=== PATIENT | female | born 1940 | race Caucasian/White ===

== ENCOUNTER 2018-01-25 08:35 | Inpatient (IN) | payer OTHER ==
--- NOTE | 2018-01-25 08:51 | PDOC ---
History of Present Illness - General Stated Complaint: UTI Time Seen by Provider: 01/25/18 08:50 - History of Present Illness Initial Comments: 01/25/18 09:36 The patient is a 77 year old female with a history of HTN, HLD, DM, CAD, COPD, frequent UTIs, PVD s/p aka to the left lower extremity who presents for evaluation of lower abdominal pain. The patient is accompanied by family who assist in providing the history. They note worsening lower abdominal pain and flank pain over the past 2 days similar to prior UTIs. The patient notes that she has been unable to get comfortable and her prior UTI symptoms have never been this severe before. They note subjective fevers at home and otherwise deny SOB, chest pain, nausea, vomiting, or changes with bowel movements. Past History - Past Medical History Allergies/Adverse Reactions: Allergies Allergy/AdvReac Type Severity Reaction Status Date / Time No Known Allergies Allergy Verified 01/25/18 08:48 Home Medications: Ambulatory Orders Aspirin 81 mg PO DAILY 01/25/18 Atorvastatin Calcium [Lipitor] 20 mg PO HS 01/25/18 Bethanechol Chloride [Urecholine] 50 mg PO BID 01/25/18 Budesonide/Formeterol Fumarate [SYMBICORT 160/4.5mcg -] 1 inh PO DAILY 01/25/18 Carbidopa/Levodopa [Carbidopa-Levodopa 25-100 Tab] 1 each PO BID 01/25/18 Carvedilol [Coreg -] 25 mg PO BID 01/25/18 Cholecalciferol (Vitamin D3) [Vitamin D3 -] 1,000 unit PO DAILY 01/25/18 Esomeprazole Magnesium [Nexium 24Hr] 40 mg PO DAILY 01/25/18 Furosemide [Lasix -] 80 mg PO DAILY 01/25/18 Insulin Glargine,Hum.rec.anlog [Lantus Solostar PEN (NF)] 0 units SQ HS Isosorbide Mononitrate [Imdur -] 30 mg PO DAILY 01/25/18 Losartan Potassium [Cozaar -] 50 mg PO DAILY 01/25/18 Meclizine HCl [Antivert -] 12.5 mg PO QID PRN 01/25/18 Methenamine Hippurate [Hiprex [Nf] -] 1 gm PO DAILY 01/25/18 Ranolazine [Ranexa -] 500 mg PO HS 01/25/18 Sitagliptin Phos/Metformin HCl [Janumet 50-1,000 mg Tablet] 1 each PO BID Ticagrelor [Brilinta] 90 mg PO BID 01/25/18 Cardiac Disorders: Yes COPD: Yes CHF: No Diabetes: Yes HTN: Yes Hypercholesterolemia: Yes - Surgical History Abdominal Surgery: Yes - Suicide/Smoking/Psychosocial Hx Smoking Status: No Smoking History: Never smoked Have you smoked in the past 12 months: No Number of Cigarettes Smoked Daily: 0 Information on smoking cessation initiated: No Hx Alcohol Use: No Drug/Substance Use Hx: No Substance Use Type: None Review of Systems - Review of Systems Comments:: 01/25/18 09:41 Constitutional: No fevers, chills, fatigue, malaise HEENT: No Rhinorrhea, nasal congestion, visual changes Cardiovascular: No chest pain, syncope, palpitations, lightheadedness Respiratory: No Cough, SOB, Hemoptysis, Gastrointestinal: Lower abdominal pain. No Nausea, Vomiting, Constipation, Diarrhea, Melena Genitourinary: Bilateral Flank pain. No Dysuria, Frequency, Urgency, Hesitancy , Hematuria, Musculoskeletal: No Myalgia, arthralgia Skin: No rashes, itching, bruising, pallor Neurologic: No Headache, Dizziness, Numbness, Weakness, or Tingling Psychiatric: No Hallucinations. No SI or HI *Physical Exam - Vital Signs Last Vital Signs Temp Pulse Resp BP Pulse Ox 98.3 F 80 16 172/79 H 100 01/25/18 08:35 01/25/18 08:35 01/25/18 08:35 01/25/18 08:35 01/25/18 08:35 - Physical Exam Comments: 01/25/18 09:41 General Appearance: Nourished. No Apparent Distress HEENT: No Pharyngeal Erythema, Tonsillar Exudate, Tonsillar Erythema Neck: No Cervical Lymphadenopathy Respiratory/Chest: Lungs Clear, Normal Breath Sounds. No Crackles, Rales, Rhonchi, Wheezing Cardiovascular: Regular Rhythm, Regular Rate. No Murmur, Gallops, Rubs Gastrointestinal/Abdominal: Normal Bowel Sounds, Soft. Suprapubic tenderness to palpation on exam. 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 Normal Capillary Refill Integumentary: Normal Color, Dry, Warm Neurologic: Fully Oriented, Alert, Normal Mood/Affect, Normal Response, Moderate Sedation - Procedure Monitoring Vital Signs: Procedure Monitoring Vital Signs Temperature 98.3 F 01/25/18 08:35 Pulse Rate 80 01/25/18 08:35 Respiratory Rate 16 01/25/18 08:35 Blood Pressure 172/79 H 01/25/18 08:35 O2 Sat by Pulse Oximetry (%) 100 01/25/18 08:35 ED Treatment Course - LABORATORY CBC & Chemistry Diagram: 01/25/18 09:00 01/25/18 09:00 Medical Decision Making - Medical Decision Making 01/25/18 09:43 The patient is a 77 year old female with a history of HTN, HLD, DM, CAD, COPD, frequent UTIs, PVD s/p aka to the left lower extremity who presents for evaluation of lower abdominal pain. Differential includes but is not limited to : UTI, Sepsis, Kidney stone, Infectious, Metabolic Derangement. Given the patient's history and physical exam, we will obtain a cbc, cmp, troponin, coags , blood cultures, ua, urine cultures, chest plain film, ekg, to evaluate further. We will treat with tylenol and iv fluids and continue to monitor and reassess while here in the ED. 01/25/18 10:56 CBC, cmp, troponin, ua are unremarkable. Chest plain film is unremarkable. Given the patient's symptoms we will obtain a CT abdomen/pelvis with contrast to evaluate further. The patient's GFR is 35, however we require iv contrast to obtain an adequate study to evaluate the patient. We have pretreated the patient with iv fluids in advance of her CT. 01/25/18 14:18 CT abdomen/pelvis demonstrated an occlusion of the left femoral graft but no other acute findings as read by our radiologist. We discussed the findings with Dr. Gasca with Vascular Surgery who does not believe the finding to be clinically significant especially given the patient's AKA in that limb. Plain films of the patient's spine demonstrate arthritic changes as well. The patient continues to complain of severe pain and given that she is unable to transfer herself due to the pain and her aka, we believe she requires admission for pain management and PT evaluation. *DC/Admit/Observation/Transfer Diagnosis at time of Disposition: Intractable back pain Back pain Qualifiers: Back pain location: back pain in unspecified location Chronicity: unspecified Back pain laterality: unspecified Qualified Code(s): M54.9 - Dorsalgia, unspecified - Discharge Dispostion Condition at time of disposition: Stable Decision to Admit order: Yes - Referrals Referrals: Tonio Meyer MD [Primary Care Provider] - - Patient Instructions - Post Discharge Activity
[2018-01-25] MEDS ORDERED: ACETAMINOPHEN INJECTION 100 ML IVPB ONE (09:07)
[2018-01-25] MEDS ORDERED: ACETAMINOPHEN 1000 MG/100 ML VIAL (NON FORMULARY) IVPB ONE (09:10)
[2018-01-25] MEDS ORDERED: SODIUM CHLORIDE 0.9% 500 ML INFUS.BAG IV ONE (09:10)
[2018-01-25 09:19] LABS: BASO % 0.7 % (0-2.0); EOS % 4.3 % (0-4.5); HEMATOCRIT 34.1 % (32.4-45.2); HEMOGLOBIN 11.5 GM/dL (10.7-15.3); LYMPH % 25.3 % (8-40); MCH 28.6 pg (25.7-33.7); MCHC 33.8 g/dl (32.0-36.0); MEAN CELL VOLUME 84.4 fl (80-96); MEAN PLT VOLUME 9.2 fl (7.5-11.1); MONO % 11.9 % (3.8-10.2); NEUT % 57.8 % (42.8-82.8); PLATELET COUNT 235 K/MM3 (134-434); RBC 4.04 M/mm3 (3.60-5.2); RDW 16.8 % (11.6-15.6)
[2018-01-25 09:35] LABS: URINE APPEARANCE CLEAR; URINE BILIRUBIN NEGATIVE (<2.0 mg/dL); URINE COLOR LTYELLOW; URINE GLUCOSE (UA) NEGATIVE (NEGATIVE); URINE KETONE NEGATIVE (NEGATIVE); URINE LEUK ESTERASE NEGATIVE (NEGATIVE); URINE NITRITE NEGATIVE (NEGATIVE); URINE PROTEIN NEGATIVE (NEGATIVE); URINE UROBILINOGEN NEGATIVE mg/dL (0.2-1.0)
[2018-01-25 09:39] LABS: EPI CELLS RARE /HPF (FEW); URINE HYALINE CAST 7 /lpf
[2018-01-25 09:42] LABS: INR 1.13 (0.83-1.09); PROTHROMBIN TIME (PATIENT) 13.3 SEC (9.7-13.0)
[2018-01-25 09:44] LABS: ACTIVATED PTT 28.5 SECONDS (25.2-36.5)
[2018-01-25 09:54] LABS: ALBUMIN 3.4 g/dl (3.4-5.0); ALK PHOS 144 U/L (45-117); ANION GAP 12 MMOL/L (8-16); BILIRUBIN,TOTAL 0.4 mg/dL (0.2-1); BLOOD UREA NITROGEN 32 mg/dL (7-18); CALCIUM 8.8 mg/dL (8.5-10.1); CHLORIDE 101 mmol/L (98-107); CO2 26 mmol/L (21-32); CREATININE 1.3 mg/dL (0.55-1.3); GLUCOSE,RANDOM 156 mg/dL (74-106); SGOT/AST 17 U/L (15-37); SGPT/ALT 17 U/L (13-61); SODIUM 139 mmol/L (136-145); TOT PROT 7.1 g/dl (6.4-8.2)
--- NOTE | 2018-01-25 11:02 | PDOC ---
Attending Attestation - Resident Resident Name: Johnny Yanes - ED Attending Attestation I have performed the following: I have examined & evaluated the patient, The case was reviewed & discussed with the resident, I agree w/resident's findings & plan, Exceptions are as noted - HPI HPI: 01/25/18 10:56 77 yo f with ho HTN, HLD, DM, CAD, COPD, left AKA here wtih c/o bilat flank pain and lower abd pain. pt denies dysruia or frequency. no mod factors. no hematuria. has had very frequent uti , followed by dr. verma (urologist) . no f/c no n/v only chills. has had prior surgery many years ago which complicated by intraperitoneal infection left to heal secondarily. no change to stool no cough no cp no sob. - Physicial Exam PE: 01/25/18 11:02 awake alert lungs clear bilaterally heart rrr no mrg abd soft mild llq ttp. no rebound no guarding. ext wwp. left aka stump no wound wwp. skin warm and dry. no cva tenderness. - Medical Decision Making 01/25/18 11:03 differential renal colic, uti, other intrabdominal process such as obstruction, diverticulitis, colitis. plan focused ED ultrasound bedisde.ua labs pain medication. focused ED ultrasound renal indication flank pain. no hydronephrosis noted. bladder nondistended. impression normal renal ultrasound ua negative for uti, will ct a/p with contrast eval for diveritculitis. 01/25/18 14:09 ct negative for any intrabdominal findings. It does show cholelithiasis. The left femoral stent appears to be occluded discussed these findings Dr. Gasca the patient's vascular surgeon who feels that there is insignificant patient has an AKA on the left side. Patient feels slightly improved with Tylenol however did have some recurrent pain will be given 15 mg of Toradol states her pain is worse with movement most likely likely due to degenerative changes in her spine x-rays the LS-spine show no loss of vertebral body height only degenerative changes. Patient will be discharged home to follow up with Dr. mahoney and Dr. Gasca recommend Tylenol as needed for her pain urine is negative for any infection Heart Score/ECG Review #1 General ECG Interpretation: Sinus Rhythm (78 TWI V4 - V6), Normal Rate, Normal Intervals, No acute ischemic changes
[2018-01-25] MEDS ORDERED: morphine CARPU-JECT 2 MG/1 ML DISP.SYRIN IVPUSH ONE ×2 (12:14→14:56)
[2018-01-25] MEDS ORDERED: MORPHINE SULFATE 2 MG/ML VIAL ONE ×2 (12:15→14:59)
[2018-01-25] MEDS ORDERED: LIDOCAINE 5% TOPICAL PATCH TP ONE (13:50)
[2018-01-25] MEDS ORDERED: LIDOCAINE 5% TOPICAL PATCH ONE (13:53)
[2018-01-25] MEDS ORDERED: KETOROLAC TROMETHAMINE 15 MG/ML VIAL IVPUSH ONE (14:09)
[2018-01-25] MEDS ORDERED: KETOROLAC TROMETHAMINE 15 MG/ML VIAL ONE (14:29)
[2018-01-25] MEDS ORDERED: oxyCODONE HCL 5 MG TABLET PO PRN (16:36)
[2018-01-25] MEDS ORDERED: ACETAMINOPHEN 325 MG TABLET (FP) PO PRN (16:37)
[2018-01-25 17:03] VITALS: BMI 27.7
--- NOTE | 2018-01-25 17:03 | HP ---
Admitting History and Physical - Primary Care Physician PCP: Tonio Meyer - Admission Chief Complaint: I'm having back pain History of Present Illness: Ms Downing is a pleasant 77 year old female who comes in with back pain. Patient is English speaking and has slight dementia so history comes mainly from her daughter translating and filling in details the patient cannot. Ms Mcgee has a history of recurrent UTI's and often has back pain associated with this, the last episode happening 4 months ago. 3 days ago she developed back pain. It is located in her lower back on both sides. At times it radiates around to her abdomen. She says it is constant but also says it comes and goes, and when it comes on she tightens up. The patient says at its worst it is greater than a 10. The daughter says the patient normally is able to transfer from bed to the commode but because of the pain she has been unable to do this. She does not know of anything that makes the pain better and it is worse with movement. She denies fevers, chills, lightheadedness, dizziness, chest pain, shortness of breath, nausea, vomiting, diarrhea, constipation, difficulty or pain on urination, or swelling. History Source: Patient Limitations to Obtaining History: No Limitations - Past Medical History [employer]: Yes: Dementia Cardiovascular: Yes: CHF, HTN Pulmonary: Yes: COPD, Pulmonary Fibrosis Endocrine: Yes: Diabetes Mellitus - Past Surgical History Past Surgical History: Yes: Amputation (L BKA) Additional Past Surgical History: Partial gastrectomy - Smoking History Smoking history: Never smoked Have you smoked in the past 12 months: No Aproximately how many cigarettes per day: 0 - Alcohol/Substance Use Hx Alcohol Use: No History of Substance Use: reports: None - Social History Usual Living Arrangement: Yes: With Child ADL: Family Assistance History of Recent Travel: No Home Medications - Allergies Allergies/Adverse Reactions: Allergies Allergy/AdvReac Type Severity Reaction Status Date / Time No Known Allergies Allergy Verified 01/25/18 08:48 - Home Medications Home Medications: Ambulatory Orders Aspirin 81 mg PO DAILY 01/25/18 Atorvastatin Calcium [Lipitor] 20 mg PO HS 01/25/18 Bethanechol Chloride [Urecholine] 50 mg PO BID 01/25/18 Budesonide/Formeterol Fumarate [SYMBICORT 160/4.5mcg -] 1 inh PO DAILY 01/25/18 Carbidopa/Levodopa [Carbidopa-Levodopa 25-100 Tab] 1 each PO BID 01/25/18 Carvedilol [Coreg -] 25 mg PO BID 01/25/18 Cholecalciferol (Vitamin D3) [Vitamin D3 -] 1,000 unit PO DAILY 01/25/18 Esomeprazole Magnesium [Nexium 24Hr] 40 mg PO DAILY 01/25/18 Furosemide [Lasix -] 80 mg PO DAILY 01/25/18 Insulin Glargine,Hum.rec.anlog [Lantus Solostar PEN (NF)] 0 units SQ HS Isosorbide Mononitrate [Imdur -] 30 mg PO DAILY 01/25/18 Losartan Potassium [Cozaar -] 50 mg PO DAILY 01/25/18 Meclizine HCl [Antivert -] 12.5 mg PO QID PRN 01/25/18 Methenamine Hippurate [Hiprex [Nf] -] 1 gm PO DAILY 01/25/18 Ranolazine [Ranexa -] 500 mg PO HS 01/25/18 Sitagliptin Phos/Metformin HCl [Janumet 50-1,000 mg Tablet] 1 each PO BID Ticagrelor [Brilinta] 90 mg PO BID 01/25/18 Family Disease History - Family Disease History Family Disease History: Diabetes: Mother, Heart Disease: Father Review of Systems Findings/Remarks: Full review of systems obtained, as per HPI and otherwise negative Physical Examination Vital Signs: Vital Signs Temperature 37.1 C 01/25/18 11:54 Pulse Rate 69 01/25/18 16:21 Respiratory Rate 18 01/25/18 16:21 Blood Pressure 131/62 01/25/18 16:21 O2 Sat by Pulse Oximetry (%) 97 01/25/18 16:21 Constitutional: Yes: Well Nourished, No Distress, Calm Eyes: Yes: Conjunctiva Clear, EOM Intact, PERRL HENT: Yes: Atraumatic, Normocephalic Cardiovascular: Yes: Regular Rate and Rhythm. No: Gallop, Murmur, Rub Respiratory: Yes: Regular, CTA Bilaterally. No: Rales, Rhonchi, Wheezes Gastrointestinal: Yes: Normal Bowel Sounds, Soft. No: Distention, Tenderness Extremities: Yes: WNL Edema: No Labs: CBC, BMP 01/25/18 09:00 01/25/18 09:00 Imaging - Results Chest X-ray: Report Reviewed, Image Reviewed X-ray: Report Reviewed Cat Scan: Report Reviewed Problem List - Problems (1) Back pain Assessment/Plan: -patient presents with acute back pain -worsened with movement and this was witnessed on exam -appeared spasmodic in nature -will trial flexeril -prn oxycodone 2.5mg -PT consult Code(s): M54.9 - DORSALGIA, UNSPECIFIED Qualifiers: Back pain location: low back pain Chronicity: acute Back pain laterality : bilateral Sciatica presence: without sciatica Qualified Code(s): M54.5 - Low back pain (2) CHF (congestive heart failure) Assessment/Plan: -not in exacerbation -last ECHO in system 2013 -appears diastolic at that time -continue lasix -continue blood pressure control Code(s): I50.9 - HEART FAILURE, UNSPECIFIED Qualifiers: Heart failure type: diastolic Heart failure chronicity: chronic Qualified Code(s): I50.32 - Chronic diastolic (congestive) heart failure (3) HTN (hypertension) Assessment/Plan: -elevated -suspect secondary to pain -pain control as above -continue home regimen Code(s): I10 - ESSENTIAL (PRIMARY) HYPERTENSION (4) Diabetes Assessment/Plan: -diabetic diet -continue janumet, renally dosed -FSBS and SSI Code(s): E11.9 - TYPE 2 DIABETES MELLITUS WITHOUT COMPLICATIONS (5) COPD (chronic obstructive pulmonary disease) Assessment/Plan: -not in exacerbation -continue symbicort Code(s): J44.9 - CHRONIC OBSTRUCTIVE PULMONARY DISEASE, UNSPECIFIED (6) PAD (peripheral artery disease) Assessment/Plan: -femoral artery occlusion noted on CT scan -ER team discussed with Dr Gasca, not cause of pain -no emergent intervention needed for this finding -continue brilinta Code(s): I73.9 - PERIPHERAL VASCULAR DISEASE, UNSPECIFIED (7) Dementia Assessment/Plan: -continue sinemet Code(s): F03.90 - UNSPECIFIED DEMENTIA WITHOUT BEHAVIORAL DISTURBANCE (8) CAD (coronary artery disease) Assessment/Plan: -quiescent -continue coreg, lipitor, ranexa, imdur, aspirin, and losartan Code(s): I25.10 - ATHSCL HEART DISEASE OF [place] CORONARY ARTERY W/O ANG PCTRS
[2018-01-25] MEDS ORDERED: FLU VACCINE QUAD 60 MCG/0.5 ML (MDV 18-19) IM ONE (17:08)
[2018-01-25] MEDS: INSULIN SLIDING SCALE (NOVOLOG) 1 VIAL SQ SCH ×2 (18:01→22:14)
[2018-01-25] MEDS ORDERED: PATIENT'S OWN MEDICATION (NON-FORMULARY) (Sitagliptin Phos/Metformin Hcl [Janumet 50-1,000 PO SCH (22:00)
[2018-01-25] MEDS ORDERED: PT OWN MED DRAWER 7, Y5N ONE (22:06)
[2018-01-25] MEDS: CARVEDILOL 25 MG TABLET (FP) PO SCH (22:10)
[2018-01-25] MEDS: BETHANECHOL CHLORIDE 25 MG TABLET PO SCH (22:10)
[2018-01-25] MEDS: CARBIDOPA/LEVODOPA 25/100 TABLET (FP) PO SCH (22:11)
[2018-01-25] MEDS: RANOLAZINE E.R. 500 MG TABLET (FP) PO SCH (22:11)
[2018-01-25] MEDS: ATORVASTATIN CA 20 MG TABLET (FP) PO SCH (22:11)
[2018-01-25] MEDS: TICAGRELOR 90 MG TABLET PO SCH (22:12)
[2018-01-26] MEDS: CYCLOBENZAPRINE HCL 5 MG TABLET PO SCH ×4 (00:03→21:43)
[2018-01-26] MEDS ORDERED: PT OWN MED DRAWER 7, Y5N ONE ×6 (00:16→22:49)
[2018-01-26] MEDS: sitaGLIPtin PHOSPHATE 50 MG TABLET PO SCH (06:09)
[2018-01-26] MEDS: metFORMIN HCL 500 MG TABLET (FP) PO SCH (06:09)
[2018-01-26] MEDS: INSULIN SLIDING SCALE (NOVOLOG) 1 VIAL SQ SCH ×4 (06:09→21:52)
[2018-01-26 07:02] LABS: BASO % 0.3 % (0-2.0); EOS % 1.2 % (0-4.5); HEMATOCRIT 33.8 % (32.4-45.2); HEMOGLOBIN 10.8 GM/dL (10.7-15.3); LYMPH % 10.1 % (8-40); MCH 27.5 pg (25.7-33.7); MEAN CELL VOLUME 85.8 fl (80-96); MEAN PLT VOLUME 8.8 fl (7.5-11.1); MONO % 8.7 % (3.8-10.2); NEUT % 79.7 % (42.8-82.8); PLATELET COUNT 198 K/MM3 (134-434); RBC 3.94 M/mm3 (3.60-5.2); RDW 16.9 % (11.6-15.6); WHITE BLOOD COUNT 7.3 K/mm3 (4.0-10.0)
[2018-01-26 07:34] LABS: ANION GAP 12 MMOL/L (8-16); BLOOD UREA NITROGEN 28 mg/dL (7-18); CALCIUM 8.9 mg/dL (8.5-10.1); CHLORIDE 105 mmol/L (98-107); CO2 25 mmol/L (21-32); CREATININE 1.2 mg/dL (0.55-1.3); GLUCOSE,RANDOM 138 mg/dL (74-106); MAGNESIUM 2.3 mg/dL (1.8-2.4); PHOSPHOROUS 4.1 mg/dL (2.5-4.9); POTASSIUM 3.9 mmol/L (3.5-5.1); SODIUM 141 mmol/L (136-145)
[2018-01-26] MEDS ORDERED: PATIENT'S OWN MEDICATION (NON-FORMULARY) (Sitagliptin Phos/Metformin Hcl [Janumet 50-1,000 PO SCH (10:00)
[2018-01-26] MEDS ORDERED: ENOXAPARIN NA (PORCINE) 40 MG/0.4 ML DISP.SYRIN SQ SCH (10:00)
[2018-01-26] MEDS: ASPIRIN 81 MG CHEWABLE TABLETS PO SCH (10:40)
[2018-01-26] MEDS: TICAGRELOR 90 MG TABLET PO SCH ×2 (10:41→21:44)
[2018-01-26] MEDS: CARVEDILOL 25 MG TABLET (FP) PO SCH ×2 (10:41→21:46)
[2018-01-26] MEDS: ISOSORBIDE MONONITRATE 30 MG TAB.SR.24H (FP) PO SCH (10:42)
[2018-01-26] MEDS: LOSARTAN POTASSIUM 50 MG TABLET (FP) PO SCH (10:42)
[2018-01-26] MEDS: FUROSEMIDE 40 MG TABLET (FP) PO SCH (10:42)
[2018-01-26] MEDS: BETHANECHOL CHLORIDE 25 MG TABLET PO SCH ×2 (10:43→21:46)
[2018-01-26] MEDS: CHOLECALCIFEROL (VITAMIN D3) 1,000 UNIT TABLET (FP) PO SCH (10:43)
[2018-01-26] MEDS: CARBIDOPA/LEVODOPA 25/100 TABLET (FP) PO SCH ×2 (10:43→21:46)
[2018-01-26] MEDS: PANTOPRAZOLE 40 MG TABLET (FP) PO SCH (10:43)
[2018-01-26] MEDS: BUDESONIDE/FORMETEROL FUMARATE 160/4.5 mcg INHALER IH SCH (10:44)
--- NOTE | 2018-01-26 11:19 | EKG ---
Test Reason : Blood Pressure : / mmHG Vent. Rate : 078 BPM Atrial Rate : 078 BPM P-R Int : 170 ms QRS Dur : 100 ms QT Int : 402 ms P-R-T Axes : 041 002 172 degrees QTc Int : 458 ms NORMAL SINUS RHYTHM POSSIBLE INFERIOR INFARCT , AGE UNDETERMINED ABNORMAL ECG WHEN COMPARED WITH ECG OF 03-FEB-2013 08:42, QRS DURATION HAS INCREASED T WAVE VARIATION Confirmed by ANA ROSA ALVARES MD ([id number]) on 01/26/2018 11:19:11 AM Referred By: Confirmed By:ANA ROSA ALVARES MD
[2018-01-26] MEDS ORDERED: INSULIN (NOVOLOG) ASPART 100 UNITS/ML 10ML VIAL ONE ×2 (11:34→20:48)
--- NOTE | 2018-01-26 13:02 | PN ---
Progress Note, Physician Chief Complaint: Pt sitting in bed in no acute distress. pain improved. worse w/ movement. was straightcathed overnight, DTV, daughter at bedside, reports mom cannot urinate on a bedpan or on a bed. Reports no bm since 4 days ago. Otherwise, denies further complaints. - Current Medication List Current Medications: Active Medications Aspirin (Asa -) 81 mg PO DAILY [facility] Last Admin: 01/26/18 10:40 Dose: 81 mg Atorvastatin Calcium (Lipitor -) 20 mg PO HS [facility] Last Admin: 01/25/18 22:11 Dose: 20 mg Bethanechol Chloride (Urecholine -) 50 mg PO BID [facility] Last Admin: 01/26/18 10:43 Dose: 50 mg Budesonide/Formoterol Fumarate (Symbicort 160/4.5mcg -) 1 puff IH DAILY [facility] Last Admin: 01/26/18 10:44 Dose: 1 puff Carbidopa/Levodopa (Sinemet 25/100 -) 1 each PO BID [facility] Last Admin: 01/26/18 10:43 Dose: 1 each Carvedilol (Coreg -) 25 mg PO BID [facility] Last Admin: 01/26/18 10:41 Dose: 25 mg Cholecalciferol (Vitamin D3 -) 1,000 unit PO DAILY [facility] Last Admin: 01/26/18 10:43 Dose: 1,000 unit Cyclobenzaprine HCl (Cyclobenzaprine Hcl) 5 mg PO TID [facility] Last Admin: 01/26/18 05:56 Dose: 5 mg Furosemide (Lasix -) 80 mg PO DAILY [facility] Last Admin: 01/26/18 10:42 Dose: 80 mg Insulin Aspart (Novolog Vial Sliding Scale -) 1 vial SQ ACHS [facility]; Protocol Last Admin: 01/26/18 11:52 Dose: 2 units Isosorbide Mononitrate (Imdur -) 30 mg PO DAILY [facility] Last Admin: 01/26/18 10:42 Dose: 30 mg Losartan Potassium (Cozaar -) 50 mg PO DAILY [facility] Last Admin: 01/26/18 10:42 Dose: 50 mg Metformin HCl (Glucophage -) 1,000 mg PO 0700 [facility] Last Admin: 01/26/18 06:09 Dose: 1,000 mg Oxycodone HCl (Roxicodone -) 2.5 mg PO Q6H PRN PRN Reason: PAIN LEVEL 6-10 Pantoprazole Sodium (Protonix -) 40 mg PO DAILY [facility] Last Admin: 01/26/18 10:43 Dose: 40 mg Polyethylene Glycol (Miralax (For Daily Use) -) 17 gm PO BID [facility] Ranolazine (Ranexa -) 500 mg PO HS [facility] Last Admin: 01/25/18 22:11 Dose: 500 mg Sitagliptin Phosphate (Januvia -) 50 mg PO 0700 [facility] Last Admin: 01/26/18 06:09 Dose: 50 mg Ticagrelor (Brilinta -) 90 mg PO BID [facility] Last Admin: 01/26/18 10:41 Dose: 90 mg - Objective Vital Signs: Vital Signs Temperature 98.7 F 01/26/18 08:55 Pulse Rate 65 01/26/18 08:55 Respiratory Rate 18 01/26/18 08:55 Blood Pressure 120/46 L 01/26/18 08:55 O2 Sat by Pulse Oximetry (%) 97 01/26/18 00:32 Constitutional: Yes: Well Nourished, No Distress, Calm Cardiovascular: Yes: WNL, Regular Rate and Rhythm. No: Murmur, Rub Respiratory: Yes: WNL, Regular, CTA Bilaterally. No: Accessory Muscle Use, SOB , Tachypnea, Wheezes Gastrointestinal: Yes: WNL, Normal Bowel Sounds, Soft. No: Distention, Tenderness Genitourinary: Yes: WNL Musculoskeletal: Yes: Back Pain Edema: No Neurological: Yes: WNL, Alert, Confusion Psychiatric: Yes: Alert Labs: CBC, BMP 01/26/18 06:00 01/26/18 06:00 INR, PTT INR 1.13 (0.83-1.09) H 01/25/18 09:00 Assessment/Plan (1) Low back strain Assessment/Plan: symptoms consistent w/ muscle spasms all infectious work up neg CT abd/lumbar without acute findings continue flexeril, tylenol PT pending Code(s): S39.012A - STRAIN OF MUSCLE, FASCIA AND TENDON OF LOWER BACK, INIT Qualifiers: Encounter type: initial encounter Qualified Code(s): S39.012A - Strain of muscle, fascia and tendon of lower back, initial encounter (2) Back pain Assessment/Plan: improving still worse w/ movement monitor as above Code(s): M54.9 - DORSALGIA, UNSPECIFIED Qualifiers: Back pain location: low back pain Chronicity: acute Back pain laterality : bilateral Sciatica presence: without sciatica Qualified Code(s): M54.5 - Low back pain (3) CHF (congestive heart failure) Assessment/Plan: stable continue lasix Code(s): I50.9 - HEART FAILURE, UNSPECIFIED Qualifiers: Heart failure type: diastolic Heart failure chronicity: chronic Qualified Code(s): I50.32 - Chronic diastolic (congestive) heart failure (4) HTN (hypertension) Assessment/Plan: stable varies, suspect 2/2 pain continue home regimen Code(s): I10 - ESSENTIAL (PRIMARY) HYPERTENSION (5) Diabetes Assessment/Plan: stable continue bgm, janumet, insulin sliding scale diab diet Code(s): E11.9 - TYPE 2 DIABETES MELLITUS WITHOUT COMPLICATIONS (6) COPD (chronic obstructive pulmonary disease) Assessment/Plan: stable continue symbicort Code(s): J44.9 - CHRONIC OBSTRUCTIVE PULMONARY DISEASE, UNSPECIFIED (7) PAD (peripheral artery disease) Assessment/Plan: continue brilinta outpt vascular follow up Code(s): I73.9 - PERIPHERAL VASCULAR DISEASE, UNSPECIFIED (8) Dementia Assessment/Plan: continue sinemet Code(s): F03.90 - UNSPECIFIED DEMENTIA WITHOUT BEHAVIORAL DISTURBANCE (9) CAD (coronary artery disease) Assessment/Plan: stable continue current regimen Code(s): I25.10 - ATHSCL HEART DISEASE OF [place] CORONARY ARTERY W/O ANG PCTRS (11) Constipation Assessment/Plan: daughter reports no bm for the last 4-5 days enema ordered miralax bid monitor Code(s): K59.00 - CONSTIPATION, UNSPECIFIED Qualifiers: Constipation type: slow transit constipation Qualified Code(s): K59.01 - Slow transit constipation
[2018-01-26] MEDS: ACETAMINOPHEN 325 MG TABLET (FP) PO SCH ×2 (14:04→18:54)
[2018-01-26] MEDS: POLYETHYLENE GLYCOL 3350 119 GM BTL PO SCH ×2 (14:04→21:52)
[2018-01-26] MEDS: ATORVASTATIN CA 20 MG TABLET (FP) PO SCH (21:45)
[2018-01-26] MEDS: RANOLAZINE E.R. 500 MG TABLET (FP) PO SCH (21:56)
[2018-01-27] MEDS: ACETAMINOPHEN 325 MG TABLET (FP) PO SCH ×4 (01:53→19:00)
[2018-01-27] MEDS: INSULIN SLIDING SCALE (NOVOLOG) 1 VIAL SQ SCH ×4 (06:21→22:31)
[2018-01-27] MEDS: sitaGLIPtin PHOSPHATE 50 MG TABLET PO SCH (06:21)
[2018-01-27] MEDS: metFORMIN HCL 500 MG TABLET (FP) PO SCH (06:21)
[2018-01-27] MEDS: CYCLOBENZAPRINE HCL 5 MG TABLET PO SCH ×3 (06:21→22:31)
[2018-01-27] MEDS ORDERED: PT OWN MED DRAWER 7, Y5N ONE ×2 (10:09→13:05)
[2018-01-27] MEDS: ASPIRIN 81 MG CHEWABLE TABLETS PO SCH (10:20)
[2018-01-27] MEDS: TICAGRELOR 90 MG TABLET PO SCH ×2 (10:20→22:31)
[2018-01-27] MEDS: CARBIDOPA/LEVODOPA 25/100 TABLET (FP) PO SCH ×2 (10:21→22:30)
[2018-01-27] MEDS: CARVEDILOL 25 MG TABLET (FP) PO SCH ×2 (10:21→22:30)
[2018-01-27] MEDS: ISOSORBIDE MONONITRATE 30 MG TAB.SR.24H (FP) PO SCH (10:22)
[2018-01-27] MEDS: FUROSEMIDE 40 MG TABLET (FP) PO SCH (10:22)
[2018-01-27] MEDS: POLYETHYLENE GLYCOL 3350 119 GM BTL PO SCH ×2 (10:22→22:32)
[2018-01-27] MEDS: LOSARTAN POTASSIUM 50 MG TABLET (FP) PO SCH (10:22)
[2018-01-27] MEDS: BUDESONIDE/FORMETEROL FUMARATE 160/4.5 mcg INHALER IH SCH (10:23)
[2018-01-27] MEDS: CHOLECALCIFEROL (VITAMIN D3) 1,000 UNIT TABLET (FP) PO SCH (10:23)
[2018-01-27] MEDS: BETHANECHOL CHLORIDE 25 MG TABLET PO SCH ×2 (10:23→22:30)
[2018-01-27] MEDS: PANTOPRAZOLE 40 MG TABLET (FP) PO SCH (10:23)
[2018-01-27] MEDS ORDERED: MAGNESIUM CITRATE 300 ML BOTTLE PO ONE (10:26)
[2018-01-27 10:45] LABS: ANION GAP 12 MMOL/L (8-16); BLOOD UREA NITROGEN 39 mg/dL (7-18); CALCIUM 8.2 mg/dL (8.5-10.1); CHLORIDE 103 mmol/L (98-107); CO2 22 mmol/L (21-32); CREATININE 1.8 mg/dL (0.55-1.3); GLUCOSE,RANDOM 143 mg/dL (74-106); SODIUM 138 mmol/L (136-145)
--- NOTE | 2018-01-27 11:29 | PN ---
Progress Note, Physician Chief Complaint: Pt sitting in wheelchair in no acute distress. Back pain improved. reports has not been drinking enough water. still has not had BM. Denies any chest pain, sob , n/v/d. - Current Medication List Current Medications: Active Medications Acetaminophen (Tylenol -) 650 mg PO Q6H [facility] Last Admin: 01/27/18 06:22 Dose: 650 mg Aspirin (Asa -) 81 mg PO DAILY [facility] Last Admin: 01/27/18 10:20 Dose: 81 mg Atorvastatin Calcium (Lipitor -) 20 mg PO HS [facility] Last Admin: 01/26/18 21:45 Dose: 20 mg Bethanechol Chloride (Urecholine -) 50 mg PO BID [facility] Last Admin: 01/27/18 10:23 Dose: 50 mg Budesonide/Formoterol Fumarate (Symbicort 160/4.5mcg -) 1 puff IH DAILY [facility] Last Admin: 01/27/18 10:23 Dose: 1 puff Carbidopa/Levodopa (Sinemet 25/100 -) 1 each PO BID [facility] Last Admin: 01/27/18 10:21 Dose: 1 each Carvedilol (Coreg -) 25 mg PO BID [facility] Last Admin: 01/27/18 10:21 Dose: 25 mg Cholecalciferol (Vitamin D3 -) 1,000 unit PO DAILY [facility] Last Admin: 01/27/18 10:23 Dose: 1,000 unit Cyclobenzaprine HCl (Cyclobenzaprine Hcl) 5 mg PO TID [facility] Last Admin: 01/27/18 06:21 Dose: 5 mg Docusate Sodium (Colace -) 100 mg PO TID [facility] Furosemide (Lasix -) 80 mg PO DAILY [facility] Last Admin: 01/27/18 10:22 Dose: 80 mg Insulin Aspart (Novolog Vial Sliding Scale -) 1 vial SQ ACHS [facility]; Protocol Last Admin: 01/27/18 06:21 Dose: Not Given Isosorbide Mononitrate (Imdur -) 30 mg PO DAILY [facility] Last Admin: 01/27/18 10:22 Dose: 30 mg Losartan Potassium (Cozaar -) 50 mg PO DAILY [facility] Last Admin: 01/27/18 10:22 Dose: 50 mg Metformin HCl (Glucophage -) 1,000 mg PO 0700 [facility] Last Admin: 01/27/18 06:21 Dose: 1,000 mg Oxycodone HCl (Roxicodone -) 2.5 mg PO Q6H PRN PRN Reason: PAIN LEVEL 6-10 Pantoprazole Sodium (Protonix -) 40 mg PO DAILY [facility] Last Admin: 01/27/18 10:23 Dose: 40 mg Polyethylene Glycol (Miralax (For Daily Use) -) 17 gm PO BID [facility] Last Admin: 01/27/18 10:22 Dose: 17 gm Ranolazine (Ranexa -) 500 mg PO HS [facility] Last Admin: 01/26/18 21:56 Dose: 500 mg Sitagliptin Phosphate (Januvia -) 50 mg PO 0700 [facility] Last Admin: 01/27/18 06:21 Dose: 50 mg Ticagrelor (Brilinta -) 90 mg PO BID [facility] Last Admin: 01/27/18 10:20 Dose: 90 mg - Objective Vital Signs: Vital Signs Temperature 97.6 F 01/27/18 06:30 Pulse Rate 67 01/27/18 06:30 Respiratory Rate 20 01/27/18 06:30 Blood Pressure 112/49 L 01/27/18 06:30 O2 Sat by Pulse Oximetry (%) 97 01/26/18 21:00 Constitutional: Yes: Well Nourished, No Distress Cardiovascular: Yes: WNL, Regular Rate and Rhythm Respiratory: Yes: WNL, Regular, CTA Bilaterally. No: Accessory Muscle Use, SOB , Tachypnea, Wheezes Gastrointestinal: Yes: WNL, Normal Bowel Sounds, Soft. No: Distention, Tenderness Genitourinary: Yes: WNL Extremities: Yes: WNL Edema: No Neurological: Yes: WNL, Alert, Oriented Psychiatric: Yes: WNL, Alert, Oriented Labs: CBC, BMP 01/27/18 09:30 INR, PTT INR 1.13 (0.83-1.09) H 01/25/18 09:00 Assessment/Plan (1) Low back strain Assessment/Plan: improving continue flexeril, tylenol PT pending Code(s): S39.012A - STRAIN OF MUSCLE, FASCIA AND TENDON OF LOWER BACK, INIT Qualifiers: Encounter type: initial encounter Qualified Code(s): S39.012A - Strain of muscle, fascia and tendon of lower back, initial encounter (2) Back pain Assessment/Plan: improving Code(s): M54.9 - DORSALGIA, UNSPECIFIED Qualifiers: Back pain location: low back pain Chronicity: acute Back pain laterality : bilateral Sciatica presence: without sciatica Qualified Code(s): M54.5 - Low back pain (3) ROLDAN (acute kidney injury) Assessment/Plan: suspect 2/2 poor po intake hold lasix encourage po intake IVF bolus x 1 monitor bmp Code(s): N17.9 - ACUTE KIDNEY FAILURE, UNSPECIFIED (4) CHF (congestive heart failure) Assessment/Plan: stable hold lasix in the setting of roldan Code(s): I50.9 - HEART FAILURE, UNSPECIFIED Qualifiers: Heart failure type: diastolic Heart failure chronicity: chronic Qualified Code(s): I50.32 - Chronic diastolic (congestive) heart failure (5) HTN (hypertension) Assessment/Plan: stable continue home regimen Code(s): I10 - ESSENTIAL (PRIMARY) HYPERTENSION (6) Diabetes Assessment/Plan: stable continue bgm, janumet, insulin sliding scale diab diet Code(s): E11.9 - TYPE 2 DIABETES MELLITUS WITHOUT COMPLICATIONS (7) COPD (chronic obstructive pulmonary disease) Assessment/Plan: stable continue symbicort Code(s): J44.9 - CHRONIC OBSTRUCTIVE PULMONARY DISEASE, UNSPECIFIED (8) PAD (peripheral artery disease) Assessment/Plan: continue brilinta outpt vascular follow up Code(s): I73.9 - PERIPHERAL VASCULAR DISEASE, UNSPECIFIED (9) Dementia Assessment/Plan: continue sinemet Code(s): F03.90 - UNSPECIFIED DEMENTIA WITHOUT BEHAVIORAL DISTURBANCE (10) CAD (coronary artery disease) Assessment/Plan: stable continue current regimen Code(s): I25.10 - ATHSCL HEART DISEASE OF [place] CORONARY ARTERY W/O ANG PCTRS (11) Constipation Assessment/Plan: no effect w/ enema mag citrate ordered miralax bid senna/colace ordered monitor Code(s): K59.00 - CONSTIPATION, UNSPECIFIED Qualifiers: Constipation type: slow transit constipation Qualified Code(s): K59.01 - Slow transit constipation
[2018-01-27 11:33] LABS: BASO % 0.3 % (0-2.0); EOS % 4.4 % (0-4.5); HEMATOCRIT 29.8 % (32.4-45.2); HEMOGLOBIN 10.1 GM/dL (10.7-15.3); LYMPH % 14.9 % (8-40); MCH 28.6 pg (25.7-33.7); MCHC 33.8 g/dl (32.0-36.0); MEAN CELL VOLUME 84.8 fl (80-96); MEAN PLT VOLUME 9.6 fl (7.5-11.1); MONO % 9.8 % (3.8-10.2); NEUT % 70.6 % (42.8-82.8); PLATELET COUNT 179 K/MM3 (134-434); RBC 3.52 M/mm3 (3.60-5.2); RDW 16.6 % (11.6-15.6); WHITE BLOOD COUNT 6.7 K/mm3 (4.0-10.0)
[2018-01-27] MEDS ORDERED: SODIUM CHLORIDE 500 ML IV ONE (12:21)
[2018-01-27] MEDS: DOCUSATE SODIUM 100 MG CAPSULE (FP) PO SCH ×2 (13:04→22:31)
[2018-01-27] MEDS ORDERED: SODIUM CHLORIDE 500 ML IV STA (16:21)
[2018-01-27] MEDS ORDERED: SODIUM CHLORIDE 1,000 ML IV SCH (17:20)
[2018-01-27] MEDS: SENNOSIDES 8.6MG TABLET (FP) PO SCH (22:30)
[2018-01-27] MEDS: RANOLAZINE E.R. 500 MG TABLET (FP) PO SCH (22:31)
[2018-01-27] MEDS: ATORVASTATIN CA 20 MG TABLET (FP) PO SCH (22:31)
[2018-01-28] MEDS: ACETAMINOPHEN 325 MG TABLET (FP) PO SCH ×4 (01:25→20:15)
[2018-01-28] MEDS ORDERED: PT OWN MED DRAWER 7, Y5N ONE ×2 (06:06→15:18)
[2018-01-28] MEDS: metFORMIN HCL 500 MG TABLET (FP) PO SCH (06:14)
[2018-01-28] MEDS: CYCLOBENZAPRINE HCL 5 MG TABLET PO SCH ×3 (06:14→21:30)
[2018-01-28] MEDS: sitaGLIPtin PHOSPHATE 50 MG TABLET PO SCH (06:14)
[2018-01-28] MEDS: DOCUSATE SODIUM 100 MG CAPSULE (FP) PO SCH ×3 (06:14→21:29)
[2018-01-28] MEDS: INSULIN SLIDING SCALE (NOVOLOG) 1 VIAL SQ SCH ×4 (06:15→21:31)
[2018-01-28 08:33] LABS: ANION GAP 11 MMOL/L (8-16); BLOOD UREA NITROGEN 40 mg/dL (7-18); CALCIUM 8.3 mg/dL (8.5-10.1); CHLORIDE 105 mmol/L (98-107); CO2 21 mmol/L (21-32); CREATININE 1.9 mg/dL (0.55-1.3); GLUCOSE,RANDOM 98 mg/dL (74-106); POTASSIUM 4.2 mmol/L (3.5-5.1); SODIUM 136 mmol/L (136-145)
[2018-01-28 08:50] LABS: BASO % 0.5 % (0-2.0); EOS % 4.3 % (0-4.5); HEMATOCRIT 31.8 % (32.4-45.2); HEMOGLOBIN 10.2 GM/dL (10.7-15.3); LYMPH % 16.5 % (8-40); MCH 27.4 pg (25.7-33.7); MCHC 32.1 g/dl (32.0-36.0); MEAN CELL VOLUME 85.3 fl (80-96); MEAN PLT VOLUME 9.5 fl (7.5-11.1); MONO % 12.5 % (3.8-10.2); NEUT % 66.2 % (42.8-82.8); PLATELET COUNT 192 K/MM3 (134-434); RBC 3.73 M/mm3 (3.60-5.2); RDW 16.6 % (11.6-15.6); WHITE BLOOD COUNT 6.9 K/mm3 (4.0-10.0)
[2018-01-28] MEDS ORDERED: SODIUM CHLORIDE 500 ML IV STA (10:32)
[2018-01-28] MEDS: ISOSORBIDE MONONITRATE 30 MG TAB.SR.24H (FP) PO SCH (11:01)
[2018-01-28] MEDS: CARBIDOPA/LEVODOPA 25/100 TABLET (FP) PO SCH ×2 (11:01→21:29)
[2018-01-28] MEDS: CARVEDILOL 25 MG TABLET (FP) PO SCH ×2 (11:01→21:29)
[2018-01-28] MEDS: ASPIRIN 81 MG CHEWABLE TABLETS PO SCH (11:02)
[2018-01-28] MEDS: CHOLECALCIFEROL (VITAMIN D3) 1,000 UNIT TABLET (FP) PO SCH (11:02)
[2018-01-28] MEDS: PANTOPRAZOLE 40 MG TABLET (FP) PO SCH (11:02)
[2018-01-28] MEDS: TICAGRELOR 90 MG TABLET PO SCH ×2 (11:03→21:30)
[2018-01-28] MEDS: BUDESONIDE/FORMETEROL FUMARATE 160/4.5 mcg INHALER IH SCH (11:06)
--- NOTE | 2018-01-28 11:08 | CONSULT ---
Consult - text type - Consultation Consultation Note: Renal consult for ROLDAN This is a 77 year old woman with hx of DM, Hypertension, pulmonary fibrosis, hx of UTI's who presented with complaints of back pain and developed ROLDAN during admission. Pt is awake and alert and has no acute complaints. No SOB , CP, abd pain, N/V/D. Making urine. Denies any flank pain, hematuira, dysuira. No SOB, CP, Abd pain. + Contrast exposure on 01/25. + NSAID exposure on 01/25. Was on Lasix and ARB as well. No fever, chills. PMhx: as above Allergies: as listed in EMR Family Hx: NC Social Hx: No T/A/D ROS: As per HPI, all other pertinent ros negative Home Medications Medication Instructions Recorded Aspirin 81 mg PO DAILY 01/25/18 Atorvastatin Calcium [Lipitor] 20 mg PO HS 01/25/18 Bethanechol Chloride [Urecholine] 50 mg PO BID 01/25/18 Budesonide/Formeterol Fumarate 1 inh PO DAILY 01/25/18 [SYMBICORT 160/4.5mcg -] Carbidopa/Levodopa 1 each PO BID 01/25/18 [Carbidopa-Levodopa 25-100 Tab] Carvedilol [Coreg -] 25 mg PO BID 01/25/18 Cholecalciferol (Vitamin D3) 1,000 unit PO DAILY 01/25/18 [Vitamin D3 -] Esomeprazole Magnesium [Nexium 40 mg PO DAILY 01/25/18 24Hr] Furosemide [Lasix -] 80 mg PO DAILY 01/25/18 Insulin Glargine,Hum.rec.anlog 0 units SQ HS 01/25/18 [Lantus Solostar PEN (NF)] Isosorbide Mononitrate [Imdur -] 30 mg PO DAILY 01/25/18 Losartan Potassium [Cozaar -] 50 mg PO DAILY 01/25/18 Meclizine HCl [Antivert -] 12.5 mg PO QID PRN 01/25/18 Methenamine Hippurate [Hiprex [Nf] 1 gm PO DAILY 01/25/18 -] Ranolazine [Ranexa -] 500 mg PO HS 01/25/18 Sitagliptin Phos/Metformin HCl 1 each PO BID 01/25/18 [Janumet 50-1,000 mg Tablet] Ticagrelor [Brilinta] 90 mg PO BID 01/25/18 Vital Signs Temperature 98.3 F 01/28/18 06:00 Pulse Rate 62 01/28/18 06:00 Respiratory Rate 20 01/28/18 06:00 Blood Pressure 122/50 L 01/28/18 06:00 O2 Sat by Pulse Oximetry (%) 97 01/27/18 21:00 Intake & Output 01/25/18 01/26/18 01/27/18 01/28/18 23:59 23:59 23:59 23:59 Intake Total 300 1203 Output Total 550 550 Balance -550 -250 1203 Weight 64.41 kg NAD awake and alert neck supple no JVD MMM RRR CTA soft NT/ND No LE edema, left AKA no bladder distension CBC, BMP 01/28/18 06:15 01/28/18 06:15 Laboratory Tests 01/25/18 01/28/18 09:20 06:15 Calcium 8.3 L Urine Protein Negative Urine Blood 1+ H Urine WBC (Auto) <1 Urine RBC (Auto) 1 Current Medications Acetaminophen (Tylenol -) 650 mg PO Q6H [facility] Last Admin: 01/28/18 06:14 Dose: 650 mg Aspirin (Asa -) 81 mg PO DAILY [facility] Last Admin: 01/28/18 11:02 Dose: 81 mg Atorvastatin Calcium (Lipitor -) 20 mg PO HS [facility] Last Admin: 01/27/18 22:31 Dose: 20 mg Bethanechol Chloride (Urecholine -) 50 mg PO BID [facility] Last Admin: 01/27/18 22:30 Dose: 50 mg Budesonide/Formoterol Fumarate (Symbicort 160/4.5mcg -) 1 puff IH DAILY [facility] Last Admin: 01/28/18 11:06 Dose: 1 puff Carbidopa/Levodopa (Sinemet 25/100 -) 1 each PO BID [facility] Last Admin: 01/28/18 11:01 Dose: 1 each Carvedilol (Coreg -) 25 mg PO BID [facility] Last Admin: 01/28/18 11:01 Dose: 25 mg Cholecalciferol (Vitamin D3 -) 1,000 unit PO DAILY [facility] Last Admin: 01/28/18 11:02 Dose: 1,000 unit Cyclobenzaprine HCl (Cyclobenzaprine Hcl) 5 mg PO TID [facility] Last Admin: 01/28/18 06:14 Dose: 5 mg Docusate Sodium (Colace -) 100 mg PO TID [facility] Last Admin: 01/28/18 06:14 Dose: 100 mg Furosemide (Lasix -) 80 mg PO DAILY [facility] Last Admin: 01/27/18 10:22 Dose: 80 mg Sodium Chloride (Normal Saline -) 1,000 mls @ 50 mls/hr IV [facility]IR [facility] Stop: 01/28/18 17:19 Last Admin: 01/27/18 17:57 Dose: 50 mls/hr Sodium Chloride (Normal Saline -) 500 mls @ 500 mls/hr IV ASDIR STA Stop: 01/28/18 11:31 Last Admin: 01/28/18 11:05 Dose: 500 mls/hr Insulin Aspart (Novolog Vial Sliding Scale -) 1 vial SQ ACHS [facility]; Protocol Last Admin: 01/28/18 06:15 Dose: Not Given Isosorbide Mononitrate (Imdur -) 30 mg PO DAILY [facility] Last Admin: 01/28/18 11:01 Dose: 30 mg Losartan Potassium (Cozaar -) 50 mg PO DAILY [facility] Last Admin: 01/27/18 10:22 Dose: 50 mg Metformin HCl (Glucophage -) 1,000 mg PO 0700 [facility] Last Admin: 01/28/18 06:14 Dose: 1,000 mg Oxycodone HCl (Roxicodone -) 2.5 mg PO Q6H PRN PRN Reason: PAIN LEVEL 6-10 Pantoprazole Sodium (Protonix -) 40 mg PO DAILY [facility] Last Admin: 01/28/18 11:02 Dose: 40 mg Polyethylene Glycol (Miralax (For Daily Use) -) 17 gm PO BID [facility] Last Admin: 01/27/18 22:32 Dose: Not Given Ranolazine (Ranexa -) 500 mg PO HS [facility] Last Admin: 01/27/18 22:31 Dose: 500 mg Senna (Senna -) 2 tab PO HS [facility] Last Admin: 01/27/18 22:30 Dose: 2 tab Sitagliptin Phosphate (Januvia -) 50 mg PO 0700 [facility] Last Admin: 01/28/18 06:14 Dose: 50 mg Ticagrelor (Brilinta -) 90 mg PO BID [facility] Last Admin: 01/28/18 11:03 Dose: 90 mg 77 year old woman with hx of DM, Hypertension, pulmonary fibrosis, hx of UTI's who presented with complaints of back pain and developed ROLDAN during admission. #ROLDAN likely multifactorial in etiology: Contrast nephropathy +/- renal hypoprofusion in setting of NSAIDs/ARB and diuretics #Back pain now resolved #Hx of CHF (LV function presrved on last echo in 2012) #Hypertension (BP is normal/low now) Check Urine studies for FeUrea no further imaging studies needed Would hold Lasix/Cozaar for now to get mild bolous of IVF oral intake as tolerated Trend renal function going into tomorrow avoid nephrotoxins and other contrast exposure Pt appears evolemic Trend BP Trend renal function and electrolytes Thank you Sven Tidwell DO
--- NOTE | 2018-01-28 11:21 | PN ---
Progress Note, Physician Chief Complaint: Pt sitting in wheelchair in no acute distress. Back pain improved. had BM. Denies any chest pain, sob, n/v/d. - Current Medication List Current Medications: Active Medications Acetaminophen (Tylenol -) 650 mg PO Q6H [facility] Last Admin: 01/28/18 06:14 Dose: 650 mg Aspirin (Asa -) 81 mg PO DAILY [facility] Last Admin: 01/28/18 11:02 Dose: 81 mg Atorvastatin Calcium (Lipitor -) 20 mg PO HS [facility] Last Admin: 01/27/18 22:31 Dose: 20 mg Bethanechol Chloride (Urecholine -) 50 mg PO BID [facility] Last Admin: 01/27/18 22:30 Dose: 50 mg Budesonide/Formoterol Fumarate (Symbicort 160/4.5mcg -) 1 puff IH DAILY [facility] Last Admin: 01/28/18 11:06 Dose: 1 puff Carbidopa/Levodopa (Sinemet 25/100 -) 1 each PO BID [facility] Last Admin: 01/28/18 11:01 Dose: 1 each Carvedilol (Coreg -) 25 mg PO BID [facility] Last Admin: 01/28/18 11:01 Dose: 25 mg Cholecalciferol (Vitamin D3 -) 1,000 unit PO DAILY [facility] Last Admin: 01/28/18 11:02 Dose: 1,000 unit Cyclobenzaprine HCl (Cyclobenzaprine Hcl) 5 mg PO TID [facility] Last Admin: 01/28/18 06:14 Dose: 5 mg Docusate Sodium (Colace -) 100 mg PO TID [facility] Last Admin: 01/28/18 06:14 Dose: 100 mg Furosemide (Lasix -) 80 mg PO DAILY [facility] Last Admin: 01/27/18 10:22 Dose: 80 mg Sodium Chloride (Normal Saline -) 1,000 mls @ 50 mls/hr IV ASDIR AKIL Stop: 01/28/18 17:19 Last Admin: 01/27/18 17:57 Dose: 50 mls/hr Sodium Chloride (Normal Saline -) 500 mls @ 500 mls/hr IV ASDIR STA Stop: 01/28/18 11:31 Last Admin: 01/28/18 11:05 Dose: 500 mls/hr Insulin Aspart (Novolog Vial Sliding Scale -) 1 vial SQ ACHS [facility]; Protocol Last Admin: 01/28/18 06:15 Dose: Not Given Isosorbide Mononitrate (Imdur -) 30 mg PO DAILY [facility] Last Admin: 01/28/18 11:01 Dose: 30 mg Losartan Potassium (Cozaar -) 50 mg PO DAILY [facility] Last Admin: 01/27/18 10:22 Dose: 50 mg Metformin HCl (Glucophage -) 1,000 mg PO 0700 [facility] Last Admin: 01/28/18 06:14 Dose: 1,000 mg Oxycodone HCl (Roxicodone -) 2.5 mg PO Q6H PRN PRN Reason: PAIN LEVEL 6-10 Pantoprazole Sodium (Protonix -) 40 mg PO DAILY [facility] Last Admin: 01/28/18 11:02 Dose: 40 mg Polyethylene Glycol (Miralax (For Daily Use) -) 17 gm PO BID [facility] Last Admin: 01/27/18 22:32 Dose: Not Given Ranolazine (Ranexa -) 500 mg PO [facility] Last Admin: 01/27/18 22:31 Dose: 500 mg Senna (Senna -) 2 tab PO [facility] Last Admin: 01/27/18 22:30 Dose: 2 tab Sitagliptin Phosphate (Januvia -) 50 mg PO 0700 [facility] Last Admin: 01/28/18 06:14 Dose: 50 mg Ticagrelor (Brilinta -) 90 mg PO BID [facility] Last Admin: 01/28/18 11:03 Dose: 90 mg - Objective Vital Signs: Vital Signs Temperature 98.3 F 01/28/18 06:00 Pulse Rate 62 01/28/18 06:00 Respiratory Rate 20 01/28/18 06:00 Blood Pressure 122/50 L 01/28/18 06:00 O2 Sat by Pulse Oximetry (%) 97 01/27/18 21:00 Constitutional: Yes: Well Nourished, No Distress, Calm Cardiovascular: Yes: WNL, Regular Rate and Rhythm Respiratory: Yes: WNL, Regular, CTA Bilaterally. No: Accessory Muscle Use, SOB , Tachypnea, Wheezes Gastrointestinal: Yes: WNL, Normal Bowel Sounds, Soft. No: Distention, Tenderness Genitourinary: Yes: WNL Extremities: Yes: WNL Edema: No Neurological: Yes: WNL, Alert, Oriented Psychiatric: Yes: WNL, Alert, Oriented Labs: CBC, BMP 01/28/18 06:15 01/28/18 06:15 INR, PTT INR 1.13 (0.83-1.09) H 01/25/18 09:00 Assessment/Plan (1) Low back strain Assessment/Plan: improved continue flexeril, tylenol PT Code(s): S39.012A - STRAIN OF MUSCLE, FASCIA AND TENDON OF LOWER BACK, INIT Qualifiers: Encounter type: initial encounter Qualified Code(s): S39.012A - Strain of muscle, fascia and tendon of lower back, initial encounter (2) Back pain Assessment/Plan: improved Code(s): M54.9 - DORSALGIA, UNSPECIFIED Qualifiers: Back pain location: low back pain Chronicity: acute Back pain laterality : bilateral Sciatica presence: without sciatica Qualified Code(s): M54.5 - Low back pain (3) ROLDAN (acute kidney injury) Assessment/Plan: slight trend up since yesterday hold lasix, arb, metformin IVF discussed with nephrology- suspect contrast induced nephropathy monitor bmp Code(s): N17.9 - ACUTE KIDNEY FAILURE, UNSPECIFIED (4) Contrast dye induced nephropathy Assessment/Plan: as above trend cr Code(s): N14.1 - NEPHROPATHY INDUCED BY OTH DRUG/MEDS/BIOL SUBST; T50.8X5A - ADVERSE EFFECT OF DIAGNOSTIC AGENTS, INITIAL ENCOUNTER (4) CHF (congestive heart failure) Assessment/Plan: stable hold lasix in the setting of roldan Code(s): I50.9 - HEART FAILURE, UNSPECIFIED Qualifiers: Heart failure type: diastolic Heart failure chronicity: chronic Qualified Code(s): I50.32 - Chronic diastolic (congestive) heart failure (5) HTN (hypertension) Assessment/Plan: stable continue home regimen Code(s): I10 - ESSENTIAL (PRIMARY) HYPERTENSION (6) Diabetes Assessment/Plan: stable continue bgm, insulin sliding scale hold metformin diab diet Code(s): E11.9 - TYPE 2 DIABETES MELLITUS WITHOUT COMPLICATIONS (7) COPD (chronic obstructive pulmonary disease) Assessment/Plan: stable continue symbicort Code(s): J44.9 - CHRONIC OBSTRUCTIVE PULMONARY DISEASE, UNSPECIFIED (8) PAD (peripheral artery disease) Assessment/Plan: continue brilinta outpt vascular follow up Code(s): I73.9 - PERIPHERAL VASCULAR DISEASE, UNSPECIFIED (9) Dementia Assessment/Plan: continue sinemet Code(s): F03.90 - UNSPECIFIED DEMENTIA WITHOUT BEHAVIORAL DISTURBANCE (10) CAD (coronary artery disease) Assessment/Plan: stable continue current regimen Code(s): I25.10 - ATHSCL HEART DISEASE OF [place] CORONARY ARTERY W/O ANG PCTRS (11) Constipation Assessment/Plan: resolved Code(s): K59.00 - CONSTIPATION, UNSPECIFIED Qualifiers: Constipation type: slow transit constipation Qualified Code(s): K59.01 - Slow transit constipation Dispo: Home tomorrow if renal function improving
[2018-01-28] MEDS: BETHANECHOL CHLORIDE 25 MG TABLET PO SCH ×2 (12:10→21:29)
[2018-01-28] MEDS: POLYETHYLENE GLYCOL 3350 119 GM BTL PO SCH ×2 (12:12→21:34)
[2018-01-28] MEDS ORDERED: INSULIN (NOVOLOG) ASPART 100 UNITS/ML 10ML VIAL ONE (21:01)
[2018-01-28] MEDS: SENNOSIDES 8.6MG TABLET (FP) PO SCH (21:29)
[2018-01-28] MEDS: RANOLAZINE E.R. 500 MG TABLET (FP) PO SCH (21:29)
[2018-01-28] MEDS: ATORVASTATIN CA 20 MG TABLET (FP) PO SCH (21:29)
[2018-01-29] MEDS: ACETAMINOPHEN 325 MG TABLET (FP) PO SCH ×3 (01:47→12:50)
[2018-01-29] MEDS: sitaGLIPtin PHOSPHATE 50 MG TABLET PO SCH (06:44)
[2018-01-29] MEDS: DOCUSATE SODIUM 100 MG CAPSULE (FP) PO SCH (06:44)
[2018-01-29] MEDS: CYCLOBENZAPRINE HCL 5 MG TABLET PO SCH (06:45)
[2018-01-29] MEDS: INSULIN SLIDING SCALE (NOVOLOG) 1 VIAL SQ SCH ×2 (06:45→11:25)
[2018-01-29 08:22] LABS: ANION GAP 9 MMOL/L (8-16); BLOOD UREA NITROGEN 40 mg/dL (7-18); CALCIUM 8.3 mg/dL (8.5-10.1); CHLORIDE 106 mmol/L (98-107); CO2 22 mmol/L (21-32); CREATININE 1.7 mg/dL (0.55-1.3); GLUCOSE,RANDOM 108 mg/dL (74-106); POTASSIUM 4.4 mmol/L (3.5-5.1); SODIUM 137 mmol/L (136-145)
[2018-01-29] MEDS: CARVEDILOL 25 MG TABLET (FP) PO SCH (10:16)
[2018-01-29] MEDS: CHOLECALCIFEROL (VITAMIN D3) 1,000 UNIT TABLET (FP) PO SCH (10:16)
[2018-01-29] MEDS: BETHANECHOL CHLORIDE 25 MG TABLET PO SCH (10:16)
[2018-01-29] MEDS: ISOSORBIDE MONONITRATE 30 MG TAB.SR.24H (FP) PO SCH (10:16)
[2018-01-29] MEDS: PANTOPRAZOLE 40 MG TABLET (FP) PO SCH (10:16)
[2018-01-29] MEDS: CARBIDOPA/LEVODOPA 25/100 TABLET (FP) PO SCH (10:16)
[2018-01-29] MEDS: ASPIRIN 81 MG CHEWABLE TABLETS PO SCH (10:16)
[2018-01-29] MEDS: TICAGRELOR 90 MG TABLET PO SCH (10:17)
[2018-01-29] MEDS: POLYETHYLENE GLYCOL 3350 119 GM BTL PO SCH (10:19)
[2018-01-29] MEDS: BUDESONIDE/FORMETEROL FUMARATE 160/4.5 mcg INHALER IH SCH (10:30)
[2018-01-29] MEDS ORDERED: ALBUTEROL SO4 2.5/IPRATROPIUM 0.5 INH SOL 3 ML VIAL.NEB. NEB ONE (11:05)
[2018-01-29 13:13] LABS: ANION GAP 10 MMOL/L (8-16); BLOOD UREA NITROGEN 42 mg/dL (7-18); CALCIUM 8.4 mg/dL (8.5-10.1); CHLORIDE 107 mmol/L (98-107); CO2 21 mmol/L (21-32); CREATININE 1.7 mg/dL (0.55-1.3); GLUCOSE,RANDOM 131 mg/dL (74-106); POTASSIUM 4.5 mmol/L (3.5-5.1); SODIUM 137 mmol/L (136-145)
--- NOTE | 2018-01-29 13:17 | DS ---
Physical Examination Vital Signs: Vital Signs Temperature 98.4 F 01/29/18 05:59 Pulse Rate 62 01/29/18 05:59 Respiratory Rate 18 01/29/18 05:59 Blood Pressure 136/68 01/29/18 05:59 O2 Sat by Pulse Oximetry (%) 97 01/28/18 21:00 Labs: CBC, BMP 01/28/18 06:15 01/29/18 12:24 Discharge Summary Reason For Visit: INTRACTABLE BACK PAIN Current Active Problems ROLDAN (acute kidney injury) (Acute) Back pain (Acute) CAD (coronary artery disease) (Acute) CHF (congestive heart failure) (Acute) COPD (chronic obstructive pulmonary disease) (Acute) Constipation (Acute) Contrast dye induced nephropathy (Acute) Dementia (Acute) Diabetes (Acute) HTN (hypertension) (Acute) Intractable back pain (Acute) Low back strain (Acute) PAD (peripheral artery disease) (Acute) Hospital Course: 77 year old female admitted for evaluation of back pain. all infectious work up negative. consistent with muscle strain, symptoms improved with flexeril and tylenol. Cr noted to trend up, nephrology consult appreciated, suspect 2/2 contrast induced. Cr slowly improving, pt drinking liquids. Otherwise, no other acute events, pt in no acute distress, vitals stable. Case discussed with Nephrology, continue to hold ARB, metformin and lasix and follow up outpt in 1 week, recheck bmp in 3 days. Advises to monitor for any signs of chf, to inform cardiology if needed. Plan reviewed with pt and daughter, reports understanding. Follow up as directed. PCP informed of discharge 35 minutes spent in discharge planning Condition: Improved - Instructions Diet, Activity, Other Instructions: HOLD LASIX 80MG MONITOR FOR ANY SWELLING OR SOB, INFORM CARDIOLOGY IF SO HOLD LOSARTAN AND METFORMIN AND LASIX UNTIL YOU FOLLOW UP WITH PCP/CARDIOLOGY AND REPEAT BLOOD WORK IN 3 DAYS CHECK BMP IN 3 DAYS F/U DIRECTED Referrals: Antony Singh MD [Staff Physician] - 1 Week Tonio Meyer MD [Primary Care Provider] - 1 Week Disposition: HOME - Home Medications Comprehensive Discharge Medication List: Ambulatory Orders Aspirin 81 mg PO DAILY 01/25/18 Atorvastatin Calcium [Lipitor] 20 mg PO HS 01/25/18 Bethanechol Chloride [Urecholine] 50 mg PO BID 01/25/18 Budesonide/Formeterol Fumarate [SYMBICORT 160/4.5mcg -] 1 inh PO DAILY 01/25/18 Carbidopa/Levodopa [Carbidopa-Levodopa 25-100 Tab] 1 each PO BID 01/25/18 Carvedilol [Coreg -] 25 mg PO BID 01/25/18 Cholecalciferol (Vitamin D3) [Vitamin D3 -] 1,000 unit PO DAILY 01/25/18 Esomeprazole Magnesium [Nexium 24Hr] 40 mg PO DAILY 01/25/18 Insulin Glargine,Hum.rec.anlog [Lantus Solostar PEN -] 0 units SQ HS 01/25/18 Isosorbide Mononitrate [Imdur -] 30 mg PO DAILY 01/25/18 Meclizine HCl [Antivert -] 12.5 mg PO QID PRN 01/25/18 Methenamine Hippurate [Hiprex [Nf] -] 1 gm PO DAILY 01/25/18 Ranolazine [Ranexa -] 500 mg PO HS 01/25/18 Ticagrelor [Brilinta -] 90 mg PO BID 01/25/18 Acetaminophen [Tylenol .Regular Strength -] 650 mg PO Q6H tablet 01/29/18 Cyclobenzaprine HCl 5 mg PO BID #10 tablet 01/29/18 Polyethylene Glycol 3350 [Miralax 119 gm Btl -] 17 gm PO BID #1 bottle 01/29/18
[2018-01-29 14:40] VITALS: BP 110/61; PULSE 60; TEMP 98.1
== END 2018-01-29 14:33 | disposition home or self-care (01) | DRG 563 ==
LOC: JER 08:35 → JERBED 15:41 → J8W 16:44 → OBSVTOIN 01-27 16:02
PROVIDERS: ADMIT Internal Medicine; ATTEND Internal Medicine
DX: S39.012A Strain of muscle, fascia and tendon of lower back, initial encounter (principal); I50.32 Chronic diastolic (congestive) heart failure; N17.9 Acute kidney failure, unspecified; I25.10 Atherosclerotic heart disease of native coronary artery without angina pectoris; J44.9 Chronic obstructive pulmonary disease, unspecified; E78.5 Hyperlipidemia, unspecified; F03.90 Unspecified dementia, unspecified severity, without behavioral disturbance, psychotic disturbance, mood disturbance, and anxiety; J84.10 Pulmonary fibrosis, unspecified; I11.0 Hypertensive heart disease with heart failure; E11.51 Type 2 diabetes mellitus with diabetic peripheral angiopathy without gangrene; K59.01 Slow transit constipation; N14.1 Nephropathy induced by other drugs, medicaments and biological substances; T50.8X5A Adverse effect of diagnostic agents, initial encounter; Z89.612 Acquired absence of left leg above knee
CPT/HCPCS: 36415; 71045-TC-FY; 72100-TC-FY; 74177-TC; 80048; 80053; 81003; 81015; 82962; 83605; 83735; 84100; 84484; 85025; 85610; 85730; 87040; 87086; 90688; 93005; 93010; 97116-GP; 97161-GP; 99285-25; G0008; G0378; J0131; J7030

== ENCOUNTER 2018-02-22 15:14 | Inpatient (IN) | payer OTHER ==
[2018-02-22 15:19] VITALS: BMI 21.6
[2018-02-22] MEDS ORDERED: MAG HYDROX/AL HYDROX/SIMETH 30 ML UNIT-DOSE CUP PO ONE (16:02)
[2018-02-22] MEDS ORDERED: ACETAMINOPHEN 325 MG TABLET (FP) PO ONE (16:02)
[2018-02-22] MEDS ORDERED: FAMOTIDINE 20 MG/50 ML IVPB 20 MG/50 ML MG IVPB ONE ×2 (16:02→16:13)
--- NOTE | 2018-02-22 16:06 | PDOC ---
History of Present Illness - General Chief Complaint: Pain Stated Complaint: ADOMINAL PAIN Time Seen by Provider: 02/22/18 15:44 History Source: Patient, Family Exam Limitations: Language Barrier - History of Present Illness Initial Comments: History is limited by patient speaking malay. history obtained from daughter at bedside who is next to the patient. 77 yo F w a pmh of CHF, HTN, HLD, DM, CAD, COPD, GERD, pulmonary fibrosis, frequent UTIs, PVD, dementia, Right eye blindness, remote gastric cancer s/p partial gastrectomy presents to the ER with epigastric abdominal pain which she believes is gastric reflux. She states that when the pain comes on she has shortness of breath. She has also been experiencing multiple bouts of black loose stools for almost two weeks. She says there is no blood in her stool but it is black. She is also experiencing significant nausea but no emesis. She is not currently experiencing any pain but it was very bad this morning so she came into the ED. She also says that she has been experiencing significant chills over the past 3 days. She does not believe she had a fever but she admits she never checked. Patient also states because of her nausea she has not been able to eat or sleep for the past few days and believes she has lost a significant amount of weight. She states she was admitted to the hospital 4 weeks ago and had a large workup including cat scans and x-rays for the same problem but they found nothing while she was here. She says now she needs an endoscopy to get diagnosed with ulcers. She denies any current chest pain, SOB, difficulty breathing, back pain, headache, blurry vision, neck pain, dysuria, frequency, urgency. Denies recent infections or recent antibiotic usage. PCP: Tonio Meyer Psh: Left leg below the knee amputation, partial gastrectomy Allergies: clarithromycin, levofloxacin, sulfamethoxazole, trimethoprim Social Hx: Denies smoking, drinking, or other substance usage. Past History - Past Medical History Allergies/Adverse Reactions: Allergies Allergy/AdvReac Type Severity Reaction Status Date / Time clarithromycin [From Biaxin] Allergy Verified 02/22/18 15:18 levofloxacin [From Levaquin] Allergy Verified 02/22/18 15:18 sulfamethoxazole Allergy Verified 02/22/18 15:18 [From Bactrim] trimethoprim [From Bactrim] Allergy Verified 02/22/18 15:18 Home Medications: Ambulatory Orders Aspirin 81 mg PO DAILY 01/25/18 Atorvastatin Calcium [Lipitor] 20 mg PO HS 01/25/18 Bethanechol Chloride [Urecholine] 50 mg PO BID 01/25/18 Budesonide/Formeterol Fumarate [SYMBICORT 160/4.5mcg -] 1 inh PO DAILY 01/25/18 Carbidopa/Levodopa [Carbidopa-Levodopa 25-100 Tab] 1 each PO BID 01/25/18 Carvedilol [Coreg -] 25 mg PO BID 01/25/18 Cholecalciferol (Vitamin D3) [Vitamin D3 -] 1,000 unit PO DAILY 01/25/18 Esomeprazole Magnesium [Nexium 24Hr] 40 mg PO DAILY 01/25/18 Insulin Glargine,Hum.rec.anlog [Lantus Solostar PEN -] 0 units SQ HS 01/25/18 Isosorbide Mononitrate [Imdur -] 30 mg PO DAILY 01/25/18 Meclizine HCl [Antivert -] 12.5 mg PO QID PRN 01/25/18 Methenamine Hippurate [Hiprex [Nf] -] 1 gm PO DAILY 01/25/18 Ranolazine [Ranexa -] 500 mg PO HS 01/25/18 Ticagrelor [Brilinta -] 90 mg PO BID 01/25/18 Acetaminophen [Tylenol .Regular Strength -] 650 mg PO Q6H tablet 01/29/18 Cyclobenzaprine HCl 5 mg PO BID #10 tablet 01/29/18 Polyethylene Glycol 3350 [Miralax 119 gm Btl -] 17 gm PO BID #1 bottle 01/29/18 Cardiac Disorders: Yes COPD: Yes Diabetes: Yes HTN: Yes Hypercholesterolemia: Yes - Surgical History Abdominal Surgery: Yes - Suicide/Smoking/Psychosocial Hx Smoking Status: No Smoking History: Never smoked Have you smoked in the past 12 months: No Number of Cigarettes Smoked Daily: 0 Hx Alcohol Use: No Drug/Substance Use Hx: No Substance Use Type: None Hx Substance Use Treatment: No Review of Systems - Review of Systems Able to Perform ROS?: Yes Is the patient limited Polish proficient: Yes Constitutional: Yes: Chills, Loss of Appetite, Malaise, Night Sweats, Weakness. No: Diaphoresis, Fever HEENTM: Yes: Recent change in vision, Cataracts, Ocular Prothesis. No: Blurred Vision Respiratory: Yes: Cough, Shortness of Breath, SOB with Exertion. No: Wheezing, Productive cough, Hemoptysis Cardiac (ROS): No: Chest Pain, Edema, Irregular Heart Rate, Lightheadedness, Syncope, Chest Tightness ABD/GI: Yes: Diarrhea, Nausea, Poor Appetite, Poor Fluid Intake, Rectal Bleeding , Vomiting, Indigestion, Abdominal cramping, Tarry Stools. No: Abdominal Distended, Constipated : No: Burning, Dysuria, Discharge, Frequency, Flank Pain, Hematuria Musculoskeletal: No: Back Pain, Joint Pain, Neck Pain Integumentary: No: Bruising, Change in Color, Change in Hair/Nails, Dryness, Erythema, Flushing Neurological: No: Headache, Numbness, Paresthesia, Seizure, Tingling, Tremors, Weakness, Ataxia, Dizziness Psychiatric: Yes: Change in Appetite. No: Anxiety, Depression, Stressors, Sleep Pattern Change Endocrine: No: Excessive Sweating, Flushing, Intolerance to Cold, Intolerance to Heat Hematologic/Lymphatic: No: Anemia, Blood Clots, Easy Bleeding, Easy Bruising *Physical Exam - Vital Signs Last Vital Signs Temp Pulse Resp BP Pulse Ox 97.8 F 84 18 160/84 98 02/22/18 15:18 02/22/18 15:18 02/22/18 15:18 02/22/18 15:18 02/22/18 15:18 - Physical Exam General Appearance: Yes: Nourished, Appropriately Dressed. No: Apparent Distress, Disheveled HEENT: positive: EOMI, ADEBAYO, Normal Voice, Pharynx Normal, Other (Right eye blindness). negative: Normal ENT Inspection Neck: positive: Supple. negative: Rigid, Decreased range of motion, Lymphadenopathy (R), Lymphadenopathy (L) Respiratory/Chest: positive: Decreased Breath Sounds, Crackles (bilateral at the bases). negative: Lungs Clear, Normal Breath Sounds, Rales, Rhonchi, Wheezing Cardiovascular: positive: Regular Rhythm, Regular Rate, S1, S2, Edema. negative : JVD, Murmur Vascular Pulses: Femoral (R): 2+, Doralis-Pedis (L): 2+ Gastrointestinal/Abdominal: positive: Normal Bowel Sounds, Tender (TTP in the epigastric and natan-umbilical region), Soft. negative: Increased Bowel Sounds, Decreased BS, Distended, Guarding, Rebound Lymphatic: negative: Adenopathy Musculoskeletal: positive: Normal Inspection. negative: CVA Tenderness, Decreased Range of Motion, Vertebral Tenderness Extremity: positive: Normal Capillary Refill, Normal Inspection, Normal Range of Motion, Other (Right leg below the knee amputation). negative: Swelling, Calf Tenderness Integumentary: positive: Normal Color, Dry, Warm. negative: Cyanotic, Rash Neurologic: positive: Fully Oriented, Alert, Normal Mood/Affect, Normal Response , Motor Strength 5/5, Respond to painful stimul, Responsive. negative: Facial Droop, Numbness, Confused, Disoriented Moderate Sedation - Procedure Monitoring Vital Signs: Procedure Monitoring Vital Signs Temperature 97.8 F 02/22/18 15:18 Pulse Rate 84 02/22/18 15:18 Respiratory Rate 18 02/22/18 15:18 Blood Pressure 160/84 02/22/18 15:18 O2 Sat by Pulse Oximetry (%) 98 02/22/18 15:18 Procedures - Bedside Ultrasound Other: Okaced a 20 gauge IV in the Right bicep Heart Score/ECG Review - History History: Slightly suspicious - Electrocardiogram EKG: Non specific repolarization disturbance - Age Age: >/= 65 - Risk Factors Risk Factors Heart Score: Yes Hx Hypercholesterolemia, Yes Hx Hypertension, Yes Hx Diabetes, No Smoking History, Yes Positive family hx of cardiac disease, No Hx Obesity Based on the list above the patient has:: >/=3 risk factors or Hx atherosclerotic disease - Troponin Troponin: 1-3x normal limit - Score Heart Score - Total: 6 - ECG Intrepretation Rhythm: PVC(s) - [place]: Left [place] Deviation - QRS Increased Voltage: Precordial Leads - ST and T Early Repolarization: Yes Non Specific ST-T Wave changes: Yes Flattened T Waves: Yes - ECG Impressions Normal ECG: No Non-specific ST Elevation: No Ischemic Changes: Yes ED Treatment Course - LABORATORY CBC & Chemistry Diagram: 02/22/18 16:40 02/22/18 16:40 - RADIOLOGY Radiology Studies Ordered: Category Date Time Status CHEST PA & LAT [RAD] Stat Radiology 02/22/18 15:56 Ordered Medical Decision Making - Medical Decision Making 77 yo F w a pmh of CHF, HTN, HLD, DM, CAD, COPD, GERD, pulmonary fibrosis, frequent UTIs, PVD, dementia, Right eye blindness, remote gastric cancer s/p partial gastrectomy presents to the ER with epigastric abdominal pain which she believes is gastric reflux. - loose black stools two weeks - decreased PO intake and decreased sleep - subjective weight loss - Recent chills PE: Vitals stable and WNL - Bilateral crackles on auscultation - Epigastric and natan-umbilical TTP DDx IBNLT: GERD/PUD, Gastric cancer, esophagitis, Heart failure, dehydration, Infection, Rectal bleed -upper vs lower. Plan: Labs, Urine, rectal temp, EKG, CXR, CTAP, GI cocktail, tylenol, re- assess. - Hemeoccult negative - Rectal Temp 99.4 - Lactic acid 3.0 Trop: 0.35 EKG: Sinus w/ PVCs, LVH, non-specific repolarization. Flipped T's in 1, AVL, V5, V6 non changed from prior EKG on 01/25/18 - Not giving Aspirin because patient potentially has a GI bleed. - Consulting Cardiology - will ask what they want. - Consulted Dr. Wynn who reccomends giving aspirin given negative heme occult and normal Hb. - Will trend troponin and give 325 aspirin BUN - 35 Cr - 1.5 - Given patient's elevated Cr we will not give IV contrast. - Ordering CTAP with oral contrast only. Glucose: 397 - Giving 10 units of insulin. BNP: 34,120 - Very difficult IV access. We placed a 20 gauge in the Right bicep with ultrasound guidance. - Also has a 24 gauge in the left wrist. Signing out patient to night resident -She will be admitted after the CTAP is formally read. *DC/Admit/Observation/Transfer Diagnosis at time of Disposition: Epigastric pain, Elevated troponin, CHF (congestive heart failure) - Referrals - Patient Instructions - Post Discharge Activity
[2018-02-22] MEDS ORDERED: MAG HYDROX/AL HYDROX/SIMETH 30 ML UNIT-DOSE CUP ONE (16:13)
[2018-02-22] MEDS ORDERED: ACETAMINOPHEN 325 MG TABLET (FP) ONE (17:02)
[2018-02-22 17:16] LABS: INR 1.46 (0.83-1.09); PROTHROMBIN TIME (PATIENT) 17.3 SEC (9.7-13.0)
[2018-02-22 17:17] LABS: BASO % 0.4 % (0-2.0); EOS % 1.7 % (0-4.5); HEMATOCRIT 34.6 % (32.4-45.2); HEMOGLOBIN 10.9 GM/dL (10.7-15.3); LYMPH % 22.1 % (8-40); MCH 25.9 pg (25.7-33.7); MCHC 31.7 g/dl (32.0-36.0); MEAN CELL VOLUME 81.7 fl (80-96); MEAN PLT VOLUME 9.3 fl (7.5-11.1); MONO % 10.7 % (3.8-10.2); NEUT % 65.1 % (42.8-82.8); PLATELET COUNT 346 K/MM3 (134-434); RBC 4.23 M/mm3 (3.60-5.2); RDW 17.3 % (11.6-15.6); WHITE BLOOD COUNT 8.3 K/mm3 (4.0-10.0)
[2018-02-22 17:18] LABS: ACTIVATED PTT 26.1 SECONDS (25.2-36.5)
[2018-02-22 17:31] LABS: ALBUMIN 3.1 g/dl (3.4-5.0); ALK PHOS 235 U/L (45-117); ANION GAP 11 MMOL/L (8-16); BILIRUBIN,TOTAL 1.3 mg/dL (0.2-1); BLOOD UREA NITROGEN 35 mg/dL (7-18); CALCIUM 8.9 mg/dL (8.5-10.1); CHLORIDE 94 mmol/L (98-107); CO2 28 mmol/L (21-32); CREATININE 1.5 mg/dL (0.55-1.3); LIPASE 210 U/L (73-393); N-TERMINAL BNP 34120.6 pg/ml (5-450); POTASSIUM 4.3 mmol/L (3.5-5.1); SGOT/AST 88 U/L (15-37); SGPT/ALT 52 U/L (13-61); SODIUM 133 mmol/L (136-145); TOT PROT 7.2 g/dl (6.4-8.2)
[2018-02-22 17:36] LABS: GLUCOSE,RANDOM 397 mg/dL (74-106)
[2018-02-22] MEDS ORDERED: INSULIN REGULAR HUMAN 100 UNITS/ML *VIAL IVPUSH ONE (17:40)
[2018-02-22] MEDS ORDERED: ASPIRIN 325 MG TABLET PO ONE (18:01)
--- NOTE | 2018-02-22 18:05 | PDOC ---
Attending Attestation - Resident Resident Name: Vic De Leon - ED Attending Attestation I have performed the following: I have examined & evaluated the patient, The case was reviewed & discussed with the resident, I agree w/resident's findings & plan - HPI HPI: 02/22/18 18:05 Ms. Mcgee is a 77-year-old female with a past medical history significant for CHF, HTN, HLD, DM, CAD, COPD, GERD, pulmonary fibrosis, frequent UTIs, PVD, dementia, Right eye blindness, remote gastric cancer s/p partial gastrectomy presents to the emergency department with epigastric pain. The patients been having progressive epigastric pain, associated with black watery diarrhea x 2 weeks (but worse x 2 days), nausea, loss of appetite with subjective weight loss and subjective fever. Denies hematochezia, vomiting, diarrhea. Denies trauma or sick contacts or suspicious food intake. Allergies: clarithromycin, levofloxacin. Sulfamethoxazole, trimethoprim Past Medical History: CHF, HTN, HLD, DM, CAD, COPD, GERD, pulmonary fibrosis, frequent UTIs, PVD, dementia, Right eye blindness, remote gastric cancer s/p partial gastrectomy Social history: Lives with family. No smoking. No alcohol. No illicit drugs. Surgical history: L. BKA and partial gastrectomy PCP: Dr. Ailyn Meyer - Physicial Exam PE: 02/22/18 18:05 NAD, well appearing, MMM, nl conjunctiva, anicteric; neck supple. lungs clear, RRR, abdomen soft midline gastrectomy scar, +epigastric TTP, no rebound or guarding. No CVAT. Left AKA. No peripheral edema. normal color for ethnicity, WW. - Medical Decision Making 02/22/18 18:05 DDx abdominal pain: metabolic/electrolyte derangements. GERD, PUD, esophageal spasm, pancreatitis, hepatitis, colitis, gastroenteritis, UTI, pyelonephritis, ileus, SBO, medication side effect, hernia, appendicitis, diverticulitis, mesenteric ischemia, GIB. hpi as documented, see for details. VS wnl, no fever rectally. Prior notes reviewed, including admissions, discharges and consultations. laboratory results and imaging reviewed, basic labs and lytes wnl, notable for elevated Cr 1.5, prior contrast induced nephropathy. no IV contrast for now. lactic acid elevated, 3 hyperglycemic - is diabetic, will give insulin no IVF, as h/o CHF and fluid retention Cardiac panel_elevated Troponin to 0.23, new, likely demand ischemia from underlying intra abdominal etiology. EKG normal sinus rhythm, no interval abnormalities, narrow QRS, ST and T wave segments and morphology normal. Nonspecific T wave abnormalities ED course: ASA full dose, no contraindication now, stable H/H, neg occult blood in stool, less likely GIB Call placed to [facility] at 5:42 pm, waiting for a call back from Dr. Ailyn Wynn. Case discussed with Dr. Wynn at 5:55 pm. most likely fluid retention, demand ischemia. no AC CT a/p: neg for acute pathology, b/l pl effusions, fibroids, but otherwise no pathology. Dispo: Admit for AP, dark stools/diarrhea, demand ischemia, r/o ACS vs fluid OD , tele monitor. Discussed results and management plan with pt and family member at bedside, agree with impression and plan 02/22/18 19:12 02/22/18 20:24 Heart Score/ECG Review - ECG Impressions Normal ECG: No Comment:: 02/22/18 18:07 EKG normal sinus rhythm, no interval abnormalities, narrow QRS, ST and T wave segments and morphology normal. Nonspecific T wave abnormalities no change to prior
--- NOTE | 2018-02-22 19:34 | PDOC ---
*Physical Exam - Vital Signs Last Vital Signs Temp Pulse Resp BP Pulse Ox 97.8 F 84 18 160/84 98 02/22/18 15:18 02/22/18 15:18 02/22/18 15:18 02/22/18 15:18 02/22/18 15:18 <Mavis Mcgarry - Last Filed: 02/22/18 21:03> - Vital Signs Last Vital Signs Temp Pulse Resp BP Pulse Ox 97.8 F 84 18 160/84 98 02/22/18 15:18 02/22/18 15:18 02/22/18 15:18 02/22/18 15:18 02/22/18 15:18 <NasrinYecenia Amy - Last Filed: 02/22/18 21:05> ED Treatment Course - LABORATORY CBC & Chemistry Diagram: 02/22/18 16:40 02/22/18 16:40 - ADDITIONAL ORDERS Additional order review: Laboratory Results 02/22/18 02/22/18 02/22/18 16:40 16:40 16:40 PT with INR INR PTT (Actin FS) Sodium 133 L Potassium 4.3 Chloride 94 L Carbon Dioxide 28 Anion Gap 11 BUN 35 H Creatinine 1.5 H Creat Clearance w eGFR 33.50 Random Glucose 397 H* Lactic Acid 3.0 H* Calcium 8.9 Total Bilirubin 1.3 H AST 88 H ALT 52 Alkaline Phosphatase 235 H Creatine Kinase 43 Troponin I 0.35 H B-Natriuretic Peptide 74131.6 H Total Protein 7.2 Albumin 3.1 L Lipase 210 Stool Occult Blood Blood Type O POSITIVE Antibody Screen Negative 02/22/18 02/22/18 16:40 16:15 PT with INR 17.30 H INR 1.46 H PTT (Actin FS) 26.1 Sodium Potassium Chloride Carbon Dioxide Anion Gap BUN Creatinine Creat Clearance w eGFR Random Glucose Lactic Acid Calcium Total Bilirubin AST ALT Alkaline Phosphatase Creatine Kinase Troponin I B-Natriuretic Peptide Total Protein Albumin Lipase Stool Occult Blood Negative Blood Type Antibody Screen 02/22/18 16:40 RBC 4.23 MCV 81.7 MCHC 31.7 L RDW 17.3 H MPV 9.3 Neutrophils % 65.1 Lymphocytes % 22.1 D Monocytes % 10.7 H Eosinophils % 1.7 Basophils % 0.4 - Medications Given in the ED: ED Medications Discontinued Medications Generic Name Dose Route Start Last Admin Trade Name Freq PRN Reason Stop Dose Admin Acetaminophen 650 mg 02/22/18 16:02 02/22/18 17:09 Tylenol - PO 02/22/18 16:03 650 mg ONCE ONE Administration Al Hydroxide/Mg Hydroxide 30 ml 02/22/18 16:02 02/22/18 16:54 Mylanta Oral Suspension - PO 02/22/18 16:03 30 ml ONCE ONE Administration Famotidine/Sodium Chloride 20 mg in 50 mls @ 100 mls/hr 02/22/18 16:02 16:54 Pepcid 20 Mg Premixed Ivpb - IVPB 02/22/18 16:31 100 mls/hr ONCE ONE Administration <Mavis Mcgarry - Last Filed: 02/22/18 21:03> - LABORATORY CBC & Chemistry Diagram: 02/22/18 16:40 02/22/18 16:40 - ADDITIONAL ORDERS Additional order review: Laboratory Results 02/22/18 02/22/18 02/22/18 16:40 16:40 16:40 PT with INR INR PTT (Actin FS) Sodium 133 L Potassium 4.3 Chloride 94 L Carbon Dioxide 28 Anion Gap 11 BUN 35 H Creatinine 1.5 H Creat Clearance w eGFR 33.50 Random Glucose 397 H* Lactic Acid 3.0 H* Calcium 8.9 Total Bilirubin 1.3 H AST 88 H ALT 52 Alkaline Phosphatase 235 H Creatine Kinase 43 Troponin I 0.35 H B-Natriuretic Peptide 99144.6 H Total Protein 7.2 Albumin 3.1 L Lipase 210 Stool Occult Blood Blood Type O POSITIVE Antibody Screen Negative 02/22/18 02/22/18 16:40 16:15 PT with INR 17.30 H INR 1.46 H PTT (Actin FS) 26.1 Sodium Potassium Chloride Carbon Dioxide Anion Gap BUN Creatinine Creat Clearance w eGFR Random Glucose Lactic Acid Calcium Total Bilirubin AST ALT Alkaline Phosphatase Creatine Kinase Troponin I B-Natriuretic Peptide Total Protein Albumin Lipase Stool Occult Blood Negative Blood Type Antibody Screen 02/22/18 16:40 RBC 4.23 MCV 81.7 MCHC 31.7 L RDW 17.3 H MPV 9.3 Neutrophils % 65.1 Lymphocytes % 22.1 D Monocytes % 10.7 H Eosinophils % 1.7 Basophils % 0.4 - Medications Given in the ED: ED Medications Discontinued Medications Generic Name Dose Route Start Last Admin Trade Name Swetha PRN Reason Stop Dose Admin Acetaminophen 650 mg 02/22/18 16:02 02/22/18 17:09 Tylenol - PO 02/22/18 16:03 650 mg ONCE ONE Administration Al Hydroxide/Mg Hydroxide 30 ml 02/22/18 16:02 02/22/18 16:54 Mylanta Oral Suspension - PO 02/22/18 16:03 30 ml ONCE ONE Administration Aspirin 325 mg 02/22/18 18:01 02/22/18 21:01 Asa - PO 02/22/18 18:02 325 mg ONCE ONE Administration Famotidine/Sodium Chloride 20 mg in 50 mls @ 100 mls/hr 02/22/18 16:02 16:54 Pepcid 20 Mg Premixed Ivpb - IVPB 02/22/18 16:31 100 mls/hr ONCE ONE Administration Insulin Human Regular 10 units 02/22/18 17:40 02/22/18 21:01 Novolin R Vial *For Ivpush Or Iv Drip Only* IVPUSH 02/22/18 17:41 10 units ONCE ONE Administration <Yecenia Alexandra - Last Filed: 02/22/18 21:05> Medical Decision Making - Medical Decision Making Pt was signed out to me by resident Dr. De Leon, who explained the presentation, ED course, any pending results, and needed interventions. Pending results include CT abd/pelvis with oral contrast. Pt is currently in CT scan. 02/22/18 19:[address] scan, pending read and admission. 02/22/18 19:34 Impression: 1. Fibrotic changes within the bilateral lower lung zones suggesting an underlying fibrotic lung disease such as nonspecific interstitial pneumonitis. Patchy areas of groundglass opacities and consolidation could suggest active inflammatory changes. 2. Cholelithiasis. 3. Evidence of 2 left-sided lower extremity arterial bypass graft. 4. Bilateral pleural effusions which are small. 5. Otherwise, unremarkable CT of the abdomen and pelvis, given limitations of an unenhanced CT. 02/22/18 20:18 Paging hospitalist team for admission. 02/22/18 20:19 Hospitalist team accepted. Attempting to get urine sample from pt for UA and urine culture r/o UTI. Pt resting comfortably, vitals stable. 02/22/18 20:58 <Mavis Mcgarry - Last Filed: 02/22/18 21:03> *DC/Admit/Observation/Transfer <Mavis Mcgarry - Last Filed: 02/22/18 21:03> - Discharge Dispostion Decision to Admit order: Yes Decision to Admit order Date/Time: 02/22/18 21:05 <Yecenia Alexandra - Last Filed: 02/22/18 21:05> Diagnosis at time of Disposition: Epigastric pain, Elevated troponin, CHF (congestive heart failure) - Discharge Dispostion Condition at time of disposition: Guarded - Referrals Referrals: Tonio Meyer MD [Primary Care Provider] - - Patient Instructions - Post Discharge Activity
[2018-02-22] MEDS ORDERED: ASPIRIN 325 MG TABLET ONE (20:48)
[2018-02-22] MEDS ORDERED: INSULIN REGULAR HUMAN 100 UNITS/ML *VIAL ONE (20:49)
--- NOTE | 2018-02-22 22:39 | PN ---
Teaching Attending Note Name of Resident: Renaldo Vaz ATTENDING PHYSICIAN STATEMENT I saw and evaluated the patient. I reviewed the resident's note and discussed the case with the resident. I agree with the resident's findings and plan as documented. SUBJECTIVE: Seen and examined; please see resident note for furthe historical details. Briefly, she has been having several days of worsening abdominal pain (upper abdomen) and diarrheal illness alongside a weakness. She has baseline LE edema but doesn't have any issues with worsening swelling; family says legs look at baseline. She has an elevated BNP but the patient interestingy has an elevated lactate and doesn't c/o SOB, and she is saturating well on RA. The BNP assays between her prior visits and here have different ranges and are likely different assays. She continues to have multiple episodes of diarrhea and appears slightly dry. 10 sys ROS done and negative aside from HPI PMH and PSH reviewed FH asked and noncontributory Social history reviewed; no current alcohol or drug abuse Medication list reviewed; pending reconciliation OBJECTIVE: VS, labs, imaging reviewed NAD, AAO, resting in bed comfortably. RRR s1/2 no mgr Lungs with diffuse mild crackles w/ sym expansion Abdomen is slightly tender throughout; no incarcerated hernias, etc. Labs reviewed; CBC unremarkable, Na 133 with Cl low at 94; glucose elevated at 297 with Cr under baseline at 1.5 (trends 1.7-range). INR 1.46. BUN 35 ( baseline low 40s). Lactic acid elevated 3.0 with negative lipase. T bili 1.3 AST 88 with alk phos 235. Troponin slightly elevated 0.35. BNP 34,000 (over last values). CT abdomen/pelvis reviewed prelim; fibrotic lungs with under ASSESSMENT AND PLAN: Patient presents with epigastric pain and diarrhea; found to have a flat troponin and slightly elevated LFTs with elevated BNP. 1) Abdominal Pain with Diarrhea -Preliminary CT scan results reviewed; final results pending-please followup -PRN management of pain -Diarrheal illness of unclear etiology; no sick contacts, no new foods, etc. Check for infectious diarrhea with lactoferrin, continue with her diet as tolerated, check cdif. -DDx broad; could be biliary colic as stones but no radiographic evidence of cholecystitis. 2) Fibrotic Lung Changes -Consider CT scan to followup; ensure she has OP PFTs and is following up with pulmonary medicine upon discharge. 3) Positive Lactate -Likely due to fluid depletion; hydrate overnight; trend down lactate. Not septic-appearing with no indication of infection that requires sepsis level fluids or further abx. 4) Positive troponin Likely demand in the setting of CKD, but of course will monitor on telemetry and trend down. 5) Elevated BNP -Not clinically appearing in CHF exacerbation; different BNP assay between now and last admit accounts for discrepancy. Careful fluid management with monitoring of Is and Os. 6) D-CHF -Hasn't seen Dr. Locke in >1 year as an outpatient. No recent echoes. Given risk factors for disease will check her echo and monitor closely. 7) CAD -Reconcile and continue home medications. Full Code FENA -500cc then 75cc/hr until AM -PRN replete -As tolerated -As tolerated; consider PT eval Full Code
[2018-02-22] MEDS ORDERED: MAG HYDROX/AL HYDROX/SIMETH 30 ML UNIT-DOSE CUP PO PRN (22:49)
--- NOTE | 2018-02-22 22:52 | HP ---
CHIEF COMPLAINT: SOB and abdominal pain PCP: Tonio Meyer HISTORY OF PRESENT ILLNESS: History is limited by patient speaking ivorian. history obtained from daughter at bedside who is next to the patient. 77 yo F PMH of CHF, HTN, HLD, DM, CAD, COPD, GERD, pulmonary fibrosis, frequent UTIs, PVD, dementia, Right eye blindness, gastric ulcers, remote gastric cancer s/p partial gastrectomy p/w worsening SOB and worsening of chronic epigastric abdominal pain x2wk and black watery diarrhea x2ks (but worse x 2 days). Pt notes that she has had worsening SOB in the past 2 wks despite restarting her Lasix 2 wks ago. pt has required more pilllows, from 2 to 3. pt does not ambulate much at baseline but will get SOB even while sitting in chair. pt lives at home w/ daughter who helps her w/ ambulating to bathroom. In terms of pt epigastric pain, pt has had pain and GI issues since her partial gastrectomy. pt has GI follow up w/ Fili Yadav at [facility]. pt gastric pain has worsened in the past 2 wks where she is nauseas and has had decreased appetite but no emesis. pt believes pain is 2/2 gastric reflux. She states that when the pain comes on she has SOB. She has also been experiencing multiple bouts of black loose stools for almost two weeks (but worse x 2 days). She says there is no blood in her stool but it is black. She also says that she has been experiencing significant chills over the past 3 days. She does not believe she had a fever but she admits she never checked. Patient also states because of her nausea she has not been able to eat or sleep for the past few days and believes she has lost a significant amount of weight. She denies any current cp, difficulty breathing, back pain, vomiting, WOODARD, blurry vision, neck pain, dysuria, frequency, urgency. Denies recent infections or recent antibiotic usage. Denies trauma or sick contacts or suspicious food intake. Of note, pt restarted metformin, losartan, lasix 2 wks ago. meds were held about 1 mo ago due to elevated Cr which normalized outpt to 1.0 (per pt) ER course was notable for: (1) FOBT neg, Lactic acid 3.0, Trop: 0.35, Cr - 1.5, BNP: 34,120 (2)EKG: Sinus w/ PVCs, LVH, non-specific repolarization. Flipped T's in 1, AVL, V5,V6 non changed from prior EKG on 01/25/18 (3) Cardiology Dr. Wynn recommends giving aspirin (4) CTA/P Recent Travel: denies PAST MEDICAL HISTORY: [facility] Yadav at [facility] PAST SURGICAL HISTORY: Left leg below the knee amputation, partial gastrectomy Social History: Smokinnd hand smoke from grandmother Alcohol: denies Drugs: denies Family History: grandmother from TB. Allergies clarithromycin [From Biaxin] Allergy (Verified 02/22/18 15:18) levofloxacin [From Levaquin] Allergy (Verified 02/22/18 15:18) sulfamethoxazole [From Bactrim] Allergy (Verified 02/22/18 15:18) trimethoprim [From Bactrim] Allergy (Verified 02/22/18 15:18) HOME MEDICATIONS: Home Medications Medication Instructions Recorded Aspirin 81 mg PO DAILY 01/25/18 Atorvastatin Calcium [Lipitor] 20 mg PO HS 01/25/18 Bethanechol Chloride [Urecholine] 50 mg PO BID 01/25/18 Budesonide/Formeterol Fumarate 1 inh PO DAILY 01/25/18 [SYMBICORT 160/4.5mcg -] Carbidopa/Levodopa 1 each PO BID 01/25/18 [Carbidopa-Levodopa 25-100 Tab] Carvedilol [Coreg -] 25 mg PO BID 01/25/18 Cholecalciferol (Vitamin D3) 1,000 unit PO DAILY 01/25/18 [Vitamin D3 -] Esomeprazole Magnesium [Nexium 40 mg PO DAILY 01/25/18 24Hr] Insulin Glargine,Hum.rec.anlog 0 units SQ HS 01/25/18 [Lantus Solostar PEN -] Isosorbide Mononitrate [Imdur -] 30 mg PO DAILY 01/25/18 Meclizine HCl [Antivert -] 12.5 mg PO QID PRN 01/25/18 Methenamine Hippurate [Hiprex [Nf] 1 gm PO DAILY 01/25/18 -] Ranolazine [Ranexa -] 500 mg PO HS 01/25/18 Ticagrelor [Brilinta -] 90 mg PO BID 01/25/18 Acetaminophen [Tylenol .Regular 650 mg PO Q6H tablet 01/29/18 Strength -] Cyclobenzaprine HCl 5 mg PO BID #10 tablet 01/29/18 Polyethylene Glycol 3350 [Miralax 17 gm PO BID #1 bottle 01/29/18 119 gm Btl -] REVIEW OF SYSTEMS as per hpi PHYSICAL EXAMINATION Vital Signs - 24 hr 02/22/18 15:18 Temperature 97.8 F Pulse Rate 84 Respiratory 18 Rate Blood Pressure 160/84 O2 Sat by Pulse 98 Oximetry (%) GENERAL: AOX3 NAD HEAD: NCAT EYES: Right eye blindness, sclera anicteric, conjunctiva clear. No lid lag. EARS, NOSE, THROAT: oropharynx clear without exudates. Moist mucous membranes. NECK: Normal range of motion, supple without lymphadenopathy, JVD, or masses. LUNGS: crackles b/l to mid lung HEART: RRR, normal S1 and S2 without murmur, rub or gallop. ABDOMEN: Soft, NTND, normoactive bowel sounds, no guarding, no rebound, no masses. +ventral surgical scar MUSCULOSKELETAL: Normal range of motion at all joints. No bony deformities or tenderness. UPPER EXTREMITIES: 2+ pulses, warm, well-perfused. No cyanosis. No clubbing. No peripheral edema. LOWER EXTREMITIES: 2+ pulses, warm, well-perfused. No calf tenderness. +1 peripheral edema (chronic). L AKA NEUROLOGICAL: Cranial nerves II-XII intact. Normal speech. PSYCHIATRIC: Cooperative. Good eye contact. Appropriate mood and affect. SKIN: Warm, dry, normal turgor, no rashes or lesions noted, normal capillary refill. Laboratory Results - last 24 hr 02/22/18 02/22/18 02/22/18 16:15 16:40 16:40 WBC 8.3 RBC 4.23 Hgb 10.9 Hct 34.6 MCV 81.7 MCH 25.9 MCHC 31.7 L RDW 17.3 H Plt Count 346 D MPV 9.3 Absolute Neuts (auto) 5.4 Neutrophils % 65.1 Lymphocytes % 22.1 D Monocytes % 10.7 H Eosinophils % 1.7 Basophils % 0.4 Nucleated RBC % 0 PT with INR 17.30 H INR 1.46 H PTT (Actin FS) 26.1 Sodium Potassium Chloride Carbon Dioxide Anion Gap BUN Creatinine Creat Clearance w eGFR Random Glucose Lactic Acid Calcium Total Bilirubin AST ALT Alkaline Phosphatase Creatine Kinase Troponin I B-Natriuretic Peptide Total Protein Albumin Lipase Stool Occult Blood Negative Blood Type Antibody Screen 02/22/18 02/22/18 02/22/18 16:40 16:40 16:40 WBC RBC Hgb Hct MCV MCH MCHC RDW Plt Count MPV Absolute Neuts (auto) Neutrophils % Lymphocytes % Monocytes % Eosinophils % Basophils % Nucleated RBC % PT with INR INR PTT (Actin FS) Sodium 133 L Potassium 4.3 Chloride 94 L Carbon Dioxide 28 Anion Gap 11 BUN 35 H Creatinine 1.5 H Creat Clearance w eGFR 33.50 Random Glucose 397 H* Lactic Acid 3.0 H* Calcium 8.9 Total Bilirubin 1.3 H AST 88 H ALT 52 Alkaline Phosphatase 235 H Creatine Kinase 43 Troponin I 0.35 H B-Natriuretic Peptide 44121.6 H Total Protein 7.2 Albumin 3.1 L Lipase 210 Stool Occult Blood Blood Type O POSITIVE Antibody Screen Negative CT A/P Impression: 1. Fibrotic changes within the bilateral lower lung zones suggesting an underlying fibrotic lung disease such as nonspecific interstitial pneumonitis. Patchy areas of groundglass opacities and consolidation could suggest active inflammatory changes. 2. Cholelithiasis. 3. Evidence of 2 left-sided lower extremity arterial bypass graft. 4. Bilateral pleural effusions which are small. 5. Otherwise, unremarkable CT of the abdomen and pelvis, given limitations of an unenhanced CT. ASSESSMENT/PLAN: 77 yo F PMH of CHF, HTN, HLD, DM, CAD, COPD, GERD, pulmonary fibrosis, frequent UTIs, PVD, dementia, Right eye blindness, gastric ulcers, remote gastric cancer s/p partial gastrectomy p/w worsening SOB and worsening of chronic epigastric abdominal pain x2wk and black watery diarrhea x2ks (but worse x 2 days). Abdominal Pain with Diarrhea - elevated bili and LFTs -Preliminary CT scan results reviewed above; followup on final read -Diarrheal of unclear etiology will Check for infectious causes with lactoferrin , C diff, stool cx. -FOBT neg -mylanta/protonix -ESR/CRP -gall stones noted on CT scan -abd u/s showed no cholecystitis - lipase nl, no evidence of pancreatitis on imaging elevated Lactate - Likely 2/2 fluid depletion 250cc then 75cc/hr until AM trend lactic Not septic-appearing with no indication of infection that requires abx. CHF - clinically does not appear to be in CHF exacerbation. although pt reports hx of increase pillow use. strict I/O low sodium c/w home meds but hold lasix until euvolemic if pt has poor response to fluids and appears overloaded, can give lasix elevated BNP, different BNP assay between now and last admit accounts for discrepancy Hasn't seen Dr. Locke in >1 year as an outpatient. No recent echoes. Given risk factors for disease will check her echo and monitor closely. elevated troponin - downtrending likely demand ischemia EKG: Sinus w/ PVCs, LVH, non-specific repolarization. Flipped T's in 1, AVL, V5, V6 non changed from prior EKG on 01/25/18 cardio consult s/p ASA 325 in ED FOBT neg ROLDAN on CKD monitor Cr gentle IVF in consideration of CHF HTN hold losartan in setting of ROLDAN and intravascular volume depletion CAD c/w home ASA,ticagrelor, ranexa 500 qhs COPD home dose symbicort 160-4.5 albuterol prn Fibrotic Lung Changes noted on CT A/P Consider CT chest scan to follow up; will need outpt PFTs DM BGM achs ISS will need to confirm pt home dose of lantus hold home PO meds HLD home dose atorvastatin 20 dementia c/w home carbidopa/levodopa will need to confirm if pt is taking cyclobenzaprine FEN 250cc then 75cc/hr until AM replete prn sodium/DM ctl diet ppx SQH protonix 40mg PO Full Code Dispo tele Visit type - Emergency Visit Emergency Visit: Yes ED Registration Date: 02/22/18 Care time: The patient presented to the Emergency Department on the above date and was hospitalized for further evaluation of their emergent condition. - New Patient This patient is new to me today: Yes Date on this admission: 02/23/18 - Critical Care Critical Care patient: No
[2018-02-22] MEDS ORDERED: MECLIZINE HCL 12.5 MG TABLET PO PRN (23:21)
[2018-02-23] MEDS ORDERED: SODIUM CHLORIDE 250 ML IV STA (01:10)
[2018-02-23] MEDS ORDERED: SODIUM CHLORIDE 1,000 ML IV SCH ×3 (01:15→17:30)
[2018-02-23 06:23] LABS: BASO % 0.4 % (0-2.0); EOS % 2.7 % (0-4.5); HEMOGLOBIN 10.7 GM/dL (10.7-15.3); MCH 25.6 pg (25.7-33.7); MCHC 31.4 g/dl (32.0-36.0); MEAN CELL VOLUME 81.6 fl (80-96); MEAN PLT VOLUME 9.2 fl (7.5-11.1); MONO % 11.3 % (3.8-10.2); NEUT % 59.6 % (42.8-82.8); PLATELET COUNT 352 K/MM3 (134-434); RBC 4.17 M/mm3 (3.60-5.2); RDW 17.4 % (11.6-15.6); WHITE BLOOD COUNT 11.4 K/mm3 (4.0-10.0)
[2018-02-23 06:31] LABS: INR 1.48 (0.83-1.09); PROTHROMBIN TIME (PATIENT) 17.5 SEC (9.7-13.0)
[2018-02-23] MEDS ORDERED: INSULIN (NOVOLOG) ASPART 100 UNITS/ML 10ML VIAL ONE ×2 (06:49→11:14)
[2018-02-23] MEDS: HEPARIN NA (PORCINE) 5,000 UNITS/ML 1ML VIAL SQ SCH ×3 (06:52→14:00)
[2018-02-23] MEDS: INSULIN SLIDING SCALE (NOVOLOG) 1 VIAL SQ SCH ×4 (06:53→22:16)
[2018-02-23 07:09] LABS: ALK PHOS 240 U/L (45-117); ANION GAP 12 MMOL/L (8-16); BILIRUBIN,TOTAL 1.4 mg/dL (0.2-1); BLOOD UREA NITROGEN 37 mg/dL (7-18); CALCIUM 9.1 mg/dL (8.5-10.1); CHLORIDE 95 mmol/L (98-107); CO2 26 mmol/L (21-32); CREATININE 1.6 mg/dL (0.55-1.3); GLUCOSE,RANDOM 158 mg/dL (74-106); MAGNESIUM 2.4 mg/dL (1.8-2.4); POTASSIUM 3.9 mmol/L (3.5-5.1); SGOT/AST 343 U/L (15-37); SGPT/ALT 159 U/L (13-61); SODIUM 134 mmol/L (136-145); TOT PROT 6.9 g/dl (6.4-8.2)
[2018-02-23] MEDS ORDERED: BETHANECHOL CHLORIDE 25 MG TABLET PO SCH (10:00)
[2018-02-23] MEDS ORDERED: PATIENT'S OWN MEDICATION (NON-FORMULARY) (Methenamine Hippurate 1 GM) PO SCH (10:00)
--- NOTE | 2018-02-23 10:34 | PN ---
Physical Exam: SUBJECTIVE: Patient seen and examined at bedside. Complaining of abdominal pain and diarrhea. OBJECTIVE: Vital Signs Period Temp Pulse Resp BP Sys/Ott Pulse Ox Last 24 Hr 97.8 F 84-94 18-20 138-160/71-84 98-100 General/Neruo: A&Ox3, CN II-XII grossly intact Pulm: Lungs CTA CV: S1, S2, rrr LLE: Left BKA, well-healed incision RLE: 2+ pulses, warm, well-perfused, no edema Abd: soft, not distended, large surgical incision well-healed, hypoactive bowel sounds; diffusely tender Laboratory Results - last 24 hr 02/22/18 02/22/18 02/22/18 16:15 16:40 16:40 WBC 8.3 RBC 4.23 Hgb 10.9 Hct 34.6 MCV 81.7 MCH 25.9 MCHC 31.7 L RDW 17.3 H Plt Count 346 D MPV 9.3 Absolute Neuts (auto) 5.4 Neutrophils % 65.1 Lymphocytes % 22.1 D Monocytes % 10.7 H Eosinophils % 1.7 Basophils % 0.4 Nucleated RBC % 0 ESR PT with INR 17.30 H INR 1.46 H PTT (Actin FS) 26.1 Sodium Potassium Chloride Carbon Dioxide Anion Gap BUN Creatinine Creat Clearance w eGFR POC Glucometer Random Glucose Lactic Acid Calcium Phosphorus Magnesium Total Bilirubin AST ALT Alkaline Phosphatase Creatine Kinase Troponin I C-Reactive Protein B-Natriuretic Peptide Total Protein Albumin Lipase Stool Occult Blood Negative Blood Type Antibody Screen 02/22/18 02/22/18 02/22/18 16:40 16:40 16:40 WBC RBC Hgb Hct MCV MCH MCHC RDW Plt Count MPV Absolute Neuts (auto) Neutrophils % Lymphocytes % Monocytes % Eosinophils % Basophils % Nucleated RBC % ESR PT with INR INR PTT (Actin FS) Sodium 133 L Potassium 4.3 Chloride 94 L Carbon Dioxide 28 Anion Gap 11 BUN 35 H Creatinine 1.5 H Creat Clearance w eGFR 33.50 POC Glucometer Random Glucose 397 H* Lactic Acid 3.0 H* Calcium 8.9 Phosphorus Magnesium Total Bilirubin 1.3 H AST 88 H ALT 52 Alkaline Phosphatase 235 H Creatine Kinase 43 Troponin I 0.35 H C-Reactive Protein B-Natriuretic Peptide 07746.6 H Total Protein 7.2 Albumin 3.1 L Lipase 210 Stool Occult Blood Blood Type O POSITIVE Antibody Screen Negative 02/23/18 02/23/18 02/23/18 00:20 00:20 00:20 WBC RBC Hgb Hct MCV MCH MCHC RDW Plt Count MPV Absolute Neuts (auto) Neutrophils % Lymphocytes % Monocytes % Eosinophils % Basophils % Nucleated RBC % ESR 38 H PT with INR INR PTT (Actin FS) Sodium Potassium Chloride Carbon Dioxide Anion Gap BUN Creatinine Creat Clearance w eGFR POC Glucometer Random Glucose Lactic Acid Calcium Phosphorus Magnesium Total Bilirubin AST ALT Alkaline Phosphatase Creatine Kinase Troponin I 0.32 H C-Reactive Protein 7.7 H B-Natriuretic Peptide Total Protein Albumin Lipase Stool Occult Blood Blood Type Antibody Screen 02/23/18 02/23/18 02/23/18 00:20 05:30 05:30 WBC 11.4 H RBC 4.17 Hgb 10.7 Hct 34.0 MCV 81.6 MCH 25.6 L MCHC 31.4 L RDW 17.4 H Plt Count 352 MPV 9.2 Absolute Neuts (auto) 6.8 Neutrophils % 59.6 Lymphocytes % 26.0 Monocytes % 11.3 H Eosinophils % 2.7 Basophils % 0.4 Nucleated RBC % 0 ESR PT with INR 17.50 H INR 1.48 H PTT (Actin FS) Sodium Potassium Chloride Carbon Dioxide Anion Gap BUN Creatinine Creat Clearance w eGFR POC Glucometer Random Glucose Lactic Acid 3.4 H* Calcium Phosphorus Magnesium Total Bilirubin AST ALT Alkaline Phosphatase Creatine Kinase Troponin I C-Reactive Protein B-Natriuretic Peptide Total Protein Albumin Lipase Stool Occult Blood Blood Type Antibody Screen 02/23/18 02/23/18 02/23/18 05:30 05:30 06:10 WBC RBC Hgb Hct MCV MCH MCHC RDW Plt Count MPV Absolute Neuts (auto) Neutrophils % Lymphocytes % Monocytes % Eosinophils % Basophils % Nucleated RBC % ESR PT with INR INR PTT (Actin FS) Sodium 134 L Potassium 3.9 Chloride 95 L Carbon Dioxide 26 Anion Gap 12 BUN 37 H Creatinine 1.6 H Creat Clearance w eGFR 31.09 POC Glucometer 167 Random Glucose 158 H Lactic Acid 4.0 H* Calcium 9.1 Phosphorus 4.0 Magnesium 2.4 Total Bilirubin 1.4 H AST 343 H ALT 159 H Alkaline Phosphatase 240 H Creatine Kinase Troponin I C-Reactive Protein B-Natriuretic Peptide Total Protein 6.9 Albumin 3.0 L Lipase Stool Occult Blood Blood Type Antibody Screen Active Medications Generic Name Dose Route Start Last Admin Trade Name Freq PRN Reason Stop Dose Admin Al Hydroxide/Mg Hydroxide 30 ml 02/22/18 22:49 Mylanta Oral Suspension - PO Q6H PRN DYSPEPSIA Albuterol Sulfate 1 amp 02/23/18 01:58 Ventolin 0.083% Nebulizer Soln - NEB Q4H PRN SHORT OF BREATH/WHEEZING Aspirin 81 mg 02/23/18 10:00 Asa - PO DAILY [facility] Atorvastatin Calcium 20 mg 02/23/18 22:00 Lipitor - PO HS AKIL Bethanechol Chloride 50 mg 02/23/18 10:00 Urecholine - PO BID [facility] Budesonide/Formoterol Fumarate 1 puff 02/23/18 10:00 Symbicort 160/4.5mcg - IH DAILY [facility] Carbidopa/Levodopa 1 each 02/23/18 10:00 Sinemet 25/100 - PO BID [facility] Carvedilol 25 mg 02/23/18 10:00 Coreg - PO BID [facility] Cholecalciferol 1,000 unit 02/23/18 10:00 Vitamin D3 - PO DAILY AKIL Heparin Sodium (Porcine) 5,000 unit 02/22/18 22:45 02/23/18 06:52 Heparin - SQ 5,000 unit TID AKIL Administration Sodium Chloride 1,000 mls @ 75 mls/hr 02/23/18 01:23 02/23/18 02:00 Normal Saline - IV 02/23/18 14:42 75 mls/hr ASDIR AKIL Administration Insulin Aspart 1 vial 02/23/18 07:00 02/23/18 06:53 Novolog Vial Sliding Scale - SQ 2 unit ACHS AKIL Administration Protocol Isosorbide Mononitrate 30 mg 02/23/18 10:00 Imdur - PO DAILY [facility] Meclizine HCl 12.5 mg 02/22/18 23:21 Antivert - PO QID PRN VERTIGO Non-Formulary Medication 1 gm 02/23/18 10:00 Methenamine Hippurate PO DAILY [facility] Pantoprazole Sodium 40 mg 02/23/18 10:00 Protonix - PO DAILY [facility] Ranolazine 500 mg 02/23/18 22:00 Ranexa - PO HS AKIL Ticagrelor 90 mg 02/23/18 10:00 Brilinta - PO BID [facility] ASSESSMENT/PLAN 77 year-old female with a PMH significant for HTN, CAD, systolic HF, peripheral arterial disease, COPD, pulmonary fibrosis, DM, recurrent UTIs, Parkinson's disease, and dementia; s/p left BKA and partial gastrectomy. Admitted for abdominal pain and diarrhea. Found to be in severe systolic heart failure. Abdominal pain Diarrhea --CTAP unremarkable for acute abdominal or pelvic pathology --US abd: cholelithiasis, no sign of cholecystitis --elevated bili and transaminases and persistent complaint of abdominal pain in setting of previous partial gastrectomy --stool studies, c.diff ordered --start empiric ceftriaxone and metronidazole after cultures sent --hold bethanechol --GI consult requested; surgery consult requested Acute on chronic systolic heart failure --02/23 Echo: LV severely reduced, EF 25-30%, severe global hypokinesis; RV not well visualized; LAE; mild to moderate MR; mild to moderate TR; pHTN --signs of volume overload: moderate b/L pleural effusions, BNP 34,120 --Lasix IV daily --strict I&Os, daily weights; stop IV fluids --continue ranexa (qhs, not BID), isosorbide --get records from regular assurance senior manager insurance, Dr. Naranjo at [facility] Coronary artery disease --continue ASA, Lipitor, carvedilol, ticagrelor --need old records as on DAPT, question indication and stenting when and which coronaries Peripheral arterial disease Left BKA Elevated troponins --downtrending Elevated creatinine --baseline Cr 1.2; on last admission bumped up to 1.6, thought to be secondary to SINDHU --Cr 1.6 on this admission --continue to trend COPD Pulmonary fibrosis --continue Symbicort, albuterol nebs PRN Type II NIDDM --Novolog sliding scale coverage --Levemir 45U qhs Parkinsons --continue levodopa/carbidopa --continue cyclobenzeprine Dementia --at baseline FEN Fluids: PO intake adequate Electrolytes: replete as indicated Nutrition: NPO DVT prophylaxis: SCDs; hold chemical prophylaxis due to possible surgical intervention Physical therapy Dispo: continues to require inpatient care. Full code. Visit type - Emergency Visit Emergency Visit: Yes ED Registration Date: 02/22/18 Care time: The patient presented to the Emergency Department on the above date and was hospitalized for further evaluation of their emergent condition. - New Patient This patient is new to me today: Yes Date on this admission: 02/24/18 - Critical Care Critical Care patient: No
[2018-02-23] MEDS: ASPIRIN 81 MG CHEWABLE TABLETS PO SCH (11:03)
[2018-02-23] MEDS: CARBIDOPA/LEVODOPA 25/100 TABLET (FP) PO SCH ×2 (11:03→22:11)
[2018-02-23] MEDS: CARVEDILOL 25 MG TABLET (FP) PO SCH ×2 (11:03→22:10)
[2018-02-23] MEDS: TICAGRELOR 90 MG TABLET PO SCH ×2 (11:03→23:01)
[2018-02-23] MEDS: PANTOPRAZOLE 40 MG TABLET (FP) PO SCH (11:03)
[2018-02-23] MEDS: CHOLECALCIFEROL (VITAMIN D3) 1,000 UNIT TABLET (FP) PO SCH (11:03)
[2018-02-23] MEDS: ISOSORBIDE MONONITRATE 30 MG TAB.SR.24H (FP) PO SCH (11:03)
--- NOTE | 2018-02-23 12:18 | EKG ---
Test Reason : Blood Pressure : / mmHG Vent. Rate : 083 BPM Atrial Rate : 083 BPM P-R Int : 168 ms QRS Dur : 100 ms QT Int : 386 ms P-R-T Axes : 023 -16 177 degrees QTc Int : 453 ms SINUS RHYTHM WITH OCCASIONAL PREMATURE VENTRICULAR COMPLEXES LEFT VENTRICULAR HYPERTROPHY WITH REPOLARIZATION ABNORMALITY ABNORMAL ECG WHEN COMPARED WITH ECG OF 25-JAN-2018 09:18, PREMATURE VENTRICULAR COMPLEXES ARE NOW PRESENT Confirmed by ANA ROSA ALVARES MD ([id number]) on 02/23/2018 12:18:13 PM Referred By: Confirmed By:ANA ROSA ALVARES MD
--- NOTE | 2018-02-23 14:11 | ECHO ---
Name: ALEJANDRA DILL Exam:Adult Echocardiogram Study Date: 02/23/2018 08:24 AM Age: 77 yrs Reason For Study: CHF ASSESS FOR ANY MASS Height: 65 in Weight: 130 lb BSA: 1.6 m2 MMode/2D Measurements & Calculations IVSd: 0.76 cm Ao root diam: 2.6 cm LVIDd: 4.4 cm LA dimension: 4.5 cm LVIDs: 3.8 cm LVPWd: 0.72 cm EDV(Teich): 85.6 ml TAPSE: 1.1 cm ESV(Teich): 62.9 ml Doppler Measurements & Calculations MV E max maninder: 75.0 cm/sec Ao V2 max: 101.8 cm/sec MV A max maninder: 35.0 cm/sec Ao max P.1 mmHg MV E/A: 2.1 MV dec time: 0.13 sec LV V1 max P.84 mmHg MR max maninder: 410.9 cm/sec LV V1 max: 45.8 cm/sec MR max P.0 mmHg TR max maninder: 362.8 cm/sec Med Peak E' Maninder: 5.4 cm/sec TR max P.3 mmHg Med E/e': 14.0 Lat Peak E' Maninder: 4.1 cm/sec Lat E/e': 18.5 Procedure A complete two-dimensional transthoracic echocardiogram was performed (2D, M-mode, Doppler and color flow Doppler). Left Ventricle The left ventricle is normal in size. Left ventricular systolic function is severely reduced. Ejectio n Fraction = 25-30%. There is severe global hypokinesis of the left ventricle. Right Ventricle The right ventricle is not well visualized. Atria The left atrium is mildly dilated. Right atrial size is normal. Mitral Valve There is mild mitral valve thickening. There is mild mitral annular calcification. There is mild to m oderate mitral regurgitation. Tricuspid Valve The tricuspid valve is normal in structure and function. There is mild to moderate tricuspid regurgit ation. Pulmonary artery systolic pressure is at least 62 mmHg assuming RA pressure of 3 mmHg (normal IVC and >50% collapse). Aortic Valve The aortic valve is normal in structure and function. No aortic regurgitation is present. Pulmonic Valve The pulmonic valve is not well visualized. Great Vessels The aortic root is normal size. Pericardium/Pleura There is no pericardial effusion. Interpretation Summary The left ventricle is normal in size. Left ventricular systolic function is severely reduced. There is severe global hypokinesis of the left ventricle. Ejection Fraction = 25-30%. The right ventricle is not well visualized. The left atrium is mildly dilated. Right atrial size is normal. There is mild mitral valve thickening. There is mild mitral annular calcification. There is mild to moderate mitral regurgitation. There is mild to moderate tricuspid regurgitation. Pulmonary artery systolic pressure is at least 62 mmHg assuming RA pressure of 3 mmHg (normal IVC and >50% collapse) There is no pericardial effusion. Previous study is not available for comparison Yordy Simpson MD 02/23/2018 02:10 PM
[2018-02-23] MEDS: FUROSEMIDE 40 MG/4 ML INJECTABLE VIAL IVPUSH SCH (15:00)
--- NOTE | 2018-02-23 15:23 | CON.CARD ---
Consult Consult Specialty:: Cardiology Referred by:: Haley Francois Reason for Consultation:: CHF - History of Present Illness Chief Complaint: Abdominal pain. SOB History of Present Illness: 77 year old female with a pmhx of htn, hld, dm, copd, gerd, pulmonary fibrosis, UTIs, PVD, dementia, gastric ulcers, h/o gastric CA s/p partial gastrectomy, CAD , and CHF presenting with SOB and epigastric pain. Abdominal pain is chronic but worse last 2 weeks or so associated with diarrhea. No chest pain but worsening SOB last couple weeks with +PND/orthopnea. 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 Cardio/Vascular: Yes: CHF, HTN Pulmonary: Yes: COPD, Pulmonary Fibrosis Endocrine: Yes: Diabetes Mellitus - Past Surgical History Past Surgical History: Yes: Amputation (L BKA) - Alcohol/Substance Use Hx Alcohol Use: No History of Substance Use: reports: None - Smoking History Smoking history: Never smoked Have you smoked in the past 12 months: No Aproximately how many cigarettes per day: 0 - Social History ADL: Family Assistance History of Recent Travel: No Home Medications - Allergies Allergies/Adverse Reactions: Allergies Allergy/AdvReac Type Severity Reaction Status Date / Time clarithromycin [From Biaxin] Allergy Verified 02/22/18 15:18 levofloxacin [From Levaquin] Allergy Verified 02/22/18 15:18 sulfamethoxazole Allergy Verified 02/22/18 15:18 [From Bactrim] trimethoprim [From Bactrim] Allergy Verified 02/22/18 15:18 - Home Medications Home Medications: Ambulatory Orders Aspirin 81 mg PO DAILY 01/25/18 Atorvastatin Calcium [Lipitor] 20 mg PO HS 01/25/18 Bethanechol Chloride [Urecholine] 50 mg PO BID 01/25/18 Budesonide/Formeterol Fumarate [SYMBICORT 160/4.5mcg -] 1 inh PO DAILY 01/25/18 Carbidopa/Levodopa [Carbidopa-Levodopa 25-100 Tab] 1 each PO BID 01/25/18 Carvedilol [Coreg -] 25 mg PO BID 01/25/18 Cholecalciferol (Vitamin D3) [Vitamin D3 -] 1,000 unit PO DAILY 01/25/18 Esomeprazole Magnesium [Nexium 24Hr] 40 mg PO DAILY 01/25/18 Insulin Glargine,Hum.rec.anlog [Lantus Solostar PEN -] 0 units SQ HS 01/25/18 Isosorbide Mononitrate [Imdur -] 30 mg PO DAILY 01/25/18 Meclizine HCl [Antivert -] 12.5 mg PO QID PRN 01/25/18 Methenamine Hippurate [Hiprex [Nf] -] 1 gm PO DAILY 01/25/18 Ranolazine [Ranexa -] 500 mg PO HS 01/25/18 Ticagrelor [Brilinta -] 90 mg PO BID 01/25/18 Acetaminophen [Tylenol .Regular Strength -] 650 mg PO Q6H tablet 01/29/18 Cyclobenzaprine HCl 5 mg PO BID #10 tablet 01/29/18 Polyethylene Glycol 3350 [Miralax 119 gm Btl -] 17 gm PO BID #1 bottle 01/29/18 Losartan Potassium [Cozaar -] 50 mg PO DAILY 02/22/18 Sitagliptin Phos/Metformin HCl [Janumet 50-1,000 mg Tablet] 1 each PO BID Family Disease History - Family Disease History Family Disease History: Diabetes: Mother, Heart Disease: Father Vital Signs: Vital Signs Temperature 98.4 F 02/23/18 14:00 Pulse Rate 78 02/23/18 15:00 Respiratory Rate 18 02/23/18 15:00 Blood Pressure 108/59 L 02/23/18 15:00 O2 Sat by Pulse Oximetry (%) 100 02/23/18 12:17 Constitutional: Yes: Mild Distress (abdominal pain) Neck: Yes: Supple Respiratory: Yes: Rales (bibasilar) Cardiovascular: Yes: Regular Rate and Rhythm JVD: Yes Carotid Bruit: No Heart Sounds: Yes: S1, S2 Murmur: Yes: Systolic Murmur Edema: No - Other Data Labs, Other Data: CBC, BMP 02/23/18 05:30 02/23/18 05:30 INR, PTT INR 1.48 (0.83-1.09) H 02/23/18 05:30 Troponin, BNP 02/22/18 02/23/18 02/23/18 16:40 00:20 10:40 Troponin I 0.35 H 0.32 H 0.22 H B-Natriuretic Peptide 28376.6 H 02/23/18 11:40 Troponin I Cancelled B-Natriuretic Peptide Troponin, BNP 02/22/18 02/23/18 02/23/18 16:40 00:20 10:40 Troponin I 0.35 H 0.32 H 0.22 H B-Natriuretic Peptide 54123.6 H 02/23/18 11:40 Troponin I Cancelled B-Natriuretic Peptide Imaging - Results Chest X-ray: Report Reviewed EKG: Image Reviewed Assessment/Plan 77 year old female with a pmhx of htn, hld, dm, copd, gerd, pulmonary fibrosis, UTIs, PVD, dementia, gastric ulcers, h/o gastric CA s/p partial gastrectomy, CAD , and CHF presenting with SOB and epigastric pain. Abdominal pain is chronic but worse last 2 weeks or so associated with diarrhea. No chest pain but worsening SOB last couple weeks with +PND/orthopnea. ER course was notable for: Trop: 0.35, Cr - 1.5, BNP: 34,120 EKG: Sinus w/ PVCs, LVH, non-specific repolarization with some T wave changes in I, AVL, V5,V6 non changed from prior EKG on 01/25/18 1) Acute on chronic systolic CHF -Volume overloaded with BNP 34,120 Furosemide 40mg IV daily -Monitor lytes, bun/cr, and I/O's -Unclear how new this drop in LVEF is as last echo 2013 Please attempt to get records from pmd 2) CAD On aspirin/brillinta/statin/carvedilol On tele Get old records as on DAPT question indication and stenting when and which coronaries 3) GI F/u with primary team regarding Abx and GI work up. CHF can given some elevated LFTs and discomfort but given patient's history and cholelithiasis on imaging f/u with primary team regarding any further GI work up and treatment.
[2018-02-23] MEDS ORDERED: CEFTRIAXONE 1 GM in DEXTROSE 5%-WATER - 50 ML IVPB ONE (16:00)
[2018-02-23] MEDS: ACETAMINOPHEN 325 MG TABLET (FP) PO SCH (17:19)
[2018-02-23 19:54] LABS: URINE APPEARANCE SLCLOUDY; URINE BILIRUBIN NEGATIVE (<2.0 mg/dL); URINE COLOR AMBER; URINE GLUCOSE (UA) 2+ (NEGATIVE); URINE KETONE NEGATIVE (NEGATIVE); URINE LEUK ESTERASE NEGATIVE (NEGATIVE); URINE NITRITE NEGATIVE (NEGATIVE); URINE PROTEIN 1+ (NEGATIVE); URINE UROBILINOGEN 4.0 E.U/dl mg/dL (0.2-1.0)
[2018-02-23] MEDS ORDERED: cefTRIAXone SODIUM 1 GM VIAL ONE (19:54)
[2018-02-23] MEDS ORDERED: DEXTROSE 5%-WATER - 50 ML IVPB ONE (19:55)
[2018-02-23 20:06] LABS: EPI CELLS FEW /HPF (FEW); URINE BACTERIA RARE /hpf (NONE SEEN); URINE MUCUS RARE
[2018-02-23] MEDS ORDERED: RANOLAZINE E.R. 500 MG TABLET (FP) PO SCH ×2 (22:00)
[2018-02-23] MEDS ORDERED: INSULIN (LEVEMIR) 100 UNITS/ML UNITS SQ SCH (22:00)
[2018-02-23] MEDS ORDERED: ATORVASTATIN CA 20 MG TABLET (FP) PO SCH (22:00)
[2018-02-23] MEDS: CYCLOBENZAPRINE HCL 10 MG TABLET (FP) PO SCH (22:10)
[2018-02-23] MEDS: RANOLAZINE E.R. 500 MG TABLET (FP) PO SCH (22:11)
[2018-02-23] MEDS: BUDESONIDE/FORMETEROL FUMARATE 160/4.5 mcg INHALER IH SCH (23:01)
[2018-02-24] MEDS: ACETAMINOPHEN 325 MG TABLET (FP) PO SCH ×4 (00:36→18:47)
[2018-02-24] MEDS: INSULIN SLIDING SCALE (NOVOLOG) 1 VIAL SQ SCH ×4 (06:07→21:51)
[2018-02-24 07:44] LABS: BASO % 0.1 % (0-2.0); HEMATOCRIT 29.6 % (32.4-45.2); HEMOGLOBIN 9.3 GM/dL (10.7-15.3); LYMPH % 10.8 % (8-40); MCH 25.8 pg (25.7-33.7); MCHC 31.4 g/dl (32.0-36.0); MEAN CELL VOLUME 82.2 fl (80-96); MEAN PLT VOLUME 9.1 fl (7.5-11.1); MONO % 7.4 % (3.8-10.2); NEUT % 81.7 % (42.8-82.8); PLATELET COUNT 263 K/MM3 (134-434); RBC 3.61 M/mm3 (3.60-5.2); RDW 17.3 % (11.6-15.6); WHITE BLOOD COUNT 6.8 K/mm3 (4.0-10.0)
[2018-02-24 08:34] LABS: ALBUMIN 2.5 g/dl (3.4-5.0); ALK PHOS 309 U/L (45-117); ANION GAP 12 MMOL/L (8-16); BILIRUBIN,TOTAL 1.2 mg/dL (0.2-1); BLOOD UREA NITROGEN 49 mg/dL (7-18); CALCIUM 8.1 mg/dL (8.5-10.1); CHLORIDE 105 mmol/L (98-107); CO2 26 mmol/L (21-32); CREATININE 1.6 mg/dL (0.55-1.3); GLUCOSE,RANDOM 138 mg/dL (74-106); MAGNESIUM 2.3 mg/dL (1.8-2.4); POTASSIUM 3.6 mmol/L (3.5-5.1); SGOT/AST 474 U/L (15-37); SGPT/ALT 59 U/L (13-61); SODIUM 142 mmol/L (136-145); TOT PROT 5.4 g/dl (6.4-8.2)
[2018-02-24] MEDS: FUROSEMIDE 40 MG/4 ML INJECTABLE VIAL IVPUSH SCH (09:32)
[2018-02-24] MEDS ORDERED: PT OWN MED DRAWER 7, Y5N ONE (09:46)
[2018-02-24] MEDS: CYCLOBENZAPRINE HCL 10 MG TABLET (FP) PO SCH ×2 (09:49→21:48)
[2018-02-24] MEDS: CARBIDOPA/LEVODOPA 25/100 TABLET (FP) PO SCH ×2 (09:49→21:48)
[2018-02-24] MEDS: PANTOPRAZOLE 40 MG TABLET (FP) PO SCH (09:49)
[2018-02-24] MEDS: CHOLECALCIFEROL (VITAMIN D3) 1,000 UNIT TABLET (FP) PO SCH (09:49)
[2018-02-24] MEDS: ASPIRIN 81 MG CHEWABLE TABLETS PO SCH (09:49)
[2018-02-24] MEDS: TICAGRELOR 90 MG TABLET PO SCH ×2 (09:50→21:48)
[2018-02-24] MEDS: CARVEDILOL 25 MG TABLET (FP) PO SCH ×2 (09:51→21:48)
[2018-02-24] MEDS: ISOSORBIDE MONONITRATE 30 MG TAB.SR.24H (FP) PO SCH (09:51)
[2018-02-24] MEDS: SPIRONOLACTONE 25 MG TABLET (FP) PO SCH (09:52)
[2018-02-24] MEDS: BUDESONIDE/FORMETEROL FUMARATE 160/4.5 mcg INHALER IH SCH ×2 (09:54→22:34)
--- NOTE | 2018-02-24 10:17 | PN ---
Physical Exam: SUBJECTIVE: Patient seen and examined OBJECTIVE: Vital Signs Period Temp Pulse Resp BP Sys/Ott Pulse Ox Last 24 Hr 97.2 F-98.5 F 55-78 18-20 96-124/47-59 96-100 General/Neruo: A&Ox3, CN II-XII grossly intact Pulm: Lungs CTA CV: S1, S2, rrr LLE: Left BKA, well-healed incision RLE: 2+ pulses, warm, well-perfused, no edema Abd: soft, not distended, large surgical incision well-healed, hypoactive bowel sounds; diffusely tender Laboratory Results - last 24 hr 02/23/18 02/23/18 02/23/18 10:40 11:08 11:40 WBC RBC Hgb Hct MCV MCH MCHC RDW Plt Count MPV Absolute Neuts (auto) Neutrophils % Lymphocytes % Monocytes % Eosinophils % Basophils % Nucleated RBC % Sodium Potassium Chloride Carbon Dioxide Anion Gap BUN Creatinine Creat Clearance w eGFR POC Glucometer [phone] Random Glucose Lactic Acid Calcium Magnesium Total Bilirubin AST ALT Alkaline Phosphatase Creatine Kinase 35 Troponin I 0.22 H Cancelled Total Protein Albumin Urine Color Urine Appearance Urine pH Ur Specific [place] Urine Protein Urine Glucose (UA) Urine Ketones Urine Blood Urine Nitrite Urine Bilirubin Urine Urobilinogen Ur Leukocyte Esterase Urine WBC (Auto) Urine RBC (Auto) Ur Epithelial Cells Urine Bacteria Urine Mucus Ur Random Sodium Urine Creatinine 02/23/18 02/23/18 02/23/18 11:40 16:52 19:05 WBC RBC Hgb Hct MCV MCH MCHC RDW Plt Count MPV Absolute Neuts (auto) Neutrophils % Lymphocytes % Monocytes % Eosinophils % Basophils % Nucleated RBC % Sodium Potassium Chloride Carbon Dioxide Anion Gap BUN Creatinine Creat Clearance w eGFR POC Glucometer 149 Random Glucose Lactic Acid 2.8 H* Calcium Magnesium Total Bilirubin AST ALT Alkaline Phosphatase Creatine Kinase Troponin I Total Protein Albumin Urine Color Urine Appearance Urine pH Ur Specific [place] Urine Protein Urine Glucose (UA) Urine Ketones Urine Blood Urine Nitrite Urine Bilirubin Urine Urobilinogen Ur Leukocyte Esterase Urine WBC (Auto) Urine RBC (Auto) Ur Epithelial Cells Urine Bacteria Urine Mucus Ur Random Sodium < 18 L Urine Creatinine 122.0 H 02/23/18 02/23/18 02/24/18 19:05 22:12 06:00 WBC RBC Hgb Hct MCV MCH MCHC RDW Plt Count MPV Absolute Neuts (auto) Neutrophils % Lymphocytes % Monocytes % Eosinophils % Basophils % Nucleated RBC % Sodium Potassium Chloride Carbon Dioxide Anion Gap BUN Creatinine Creat Clearance w eGFR POC Glucometer 150 159 Random Glucose Lactic Acid Calcium Magnesium Total Bilirubin AST ALT Alkaline Phosphatase Creatine Kinase Troponin I Total Protein Albumin Urine Color [place] Urine Appearance Slcloudy Urine pH 5.0 Ur Specific [place] 1.014 Urine Protein 1+ H Urine Glucose (UA) 2+ H Urine Ketones Negative Urine Blood Negative Urine Nitrite Negative Urine Bilirubin Negative Urine Urobilinogen 4.0 e.u/dl H Ur Leukocyte Esterase Negative Urine WBC (Auto) 1 Urine RBC (Auto) <1 Ur Epithelial Cells Few Urine Bacteria Rare Urine Mucus Rare Ur Random Sodium Urine Creatinine 02/24/18 02/24/18 06:53 06:53 WBC 6.8 RBC 3.61 Hgb 9.3 L Hct 29.6 L MCV 82.2 MCH 25.8 MCHC 31.4 L RDW 17.3 H Plt Count 263 D MPV 9.1 Absolute Neuts (auto) 5.6 Neutrophils % 81.7 D Lymphocytes % 10.8 D Monocytes % 7.4 Eosinophils % 0.0 D Basophils % 0.1 Nucleated RBC % 0 Sodium 142 Potassium 3.6 Chloride 105 Carbon Dioxide 26 Anion Gap 12 BUN 49 H Creatinine 1.6 H Creat Clearance w eGFR 31.09 POC Glucometer Random Glucose 138 H Lactic Acid Calcium 8.1 L Magnesium 2.3 Total Bilirubin 1.2 H AST 474 H ALT 59 Alkaline Phosphatase 309 H Creatine Kinase Troponin I Total Protein 5.4 L Albumin 2.5 L Urine Color Urine Appearance Urine pH Ur Specific [place] Urine Protein Urine Glucose (UA) Urine Ketones Urine Blood Urine Nitrite Urine Bilirubin Urine Urobilinogen Ur Leukocyte Esterase Urine WBC (Auto) Urine RBC (Auto) Ur Epithelial Cells Urine Bacteria Urine Mucus Ur Random Sodium Urine Creatinine Active Medications Generic Name Dose Route Start Last Admin Trade Name Freq PRN Reason Stop Dose Admin Acetaminophen 650 mg 02/23/18 18:00 02/24/18 06:06 Tylenol - PO 650 mg Q6HPO AKIL Administration Al Hydroxide/Mg Hydroxide 30 ml 02/22/18 22:49 Mylanta Oral Suspension - PO Q6H PRN DYSPEPSIA Albuterol Sulfate 1 amp 02/23/18 01:58 Ventolin 0.083% Nebulizer Soln - NEB Q4H PRN SHORT OF BREATH/WHEEZING Aspirin 81 mg 02/23/18 10:00 02/24/18 09:49 Asa - PO 81 mg DAILY AKIL Administration Atorvastatin Calcium 20 mg 02/23/18 22:00 02/23/18 22:11 Lipitor - PO 20 mg HS AKIL Administration Budesonide/Formoterol Fumarate 2 puff 02/23/18 22:00 02/24/18 09:54 Symbicort 160/4.5mcg - IH 2 puff BID AKIL Administration Carbidopa/Levodopa 1 each 02/23/18 10:00 02/24/18 09:49 Sinemet 25/100 - PO 1 each BID AKIL Administration Carvedilol 25 mg 02/23/18 10:00 02/24/18 09:51 Coreg - PO 25 mg BID AKIL Administration Cholecalciferol 1,000 unit 02/23/18 10:00 02/24/18 09:49 Vitamin D3 - PO 1,000 unit DAILY AKIL Administration Cyclobenzaprine HCl 5 mg 02/23/18 22:00 02/24/18 09:49 Flexeril - PO 5 mg BID AKIL Administration Furosemide 40 mg 02/23/18 14:45 02/24/18 09:32 Lasix Injection - IVPUSH 40 mg DAILY AKIL Administration Metronidazole 500 mg in 100 mls @ 100 mls/hr 02/23/18 15:15 02/24/18 09:49 Flagyl 500mg Premixed Ivpb - IVPB 100 mls/hr Q8H-IV AKIL Administration Sodium Chloride 1,000 mls @ 50 mls/hr 02/23/18 17:30 02/23/18 19:10 Normal Saline - IV 02/24/18 17:27 50 mls/hr ASDIR AKIL Administration Insulin Aspart 1 vial 02/23/18 07:00 02/24/18 06:07 Novolog Vial Sliding Scale - SQ 2 unit ACHS AKIL Administration Protocol Insulin Detemir 45 units 02/23/18 22:00 02/23/18 22:18 Levemir Vial SQ Not Given HS AKIL Isosorbide Mononitrate 30 mg 02/23/18 10:00 02/24/18 09:51 Imdur - PO 30 mg DAILY AKIL Administration Meclizine HCl 12.5 mg 02/22/18 23:21 Antivert - PO QID PRN VERTIGO Non-Formulary Medication 1 gm 02/23/18 10:00 Methenamine Hippurate PO DAILY AKIL Pantoprazole Sodium 40 mg 02/23/18 10:00 02/24/18 09:49 Protonix - PO 40 mg DAILY AKIL Administration Ranolazine 500 mg 02/23/18 22:00 02/23/18 22:11 Ranexa - PO 500 mg HS AKIL Administration Spironolactone 25 mg 02/24/18 10:00 02/24/18 09:52 Aldactone - PO 25 mg DAILY AKIL Administration Ticagrelor 90 mg 02/23/18 10:00 02/24/18 09:50 Brilinta - PO 90 mg BID AKIL Administration ASSESSMENT/PLAN: 77 year-old female with a PMH significant for HTN, CAD, systolic HF, peripheral arterial disease, COPD, pulmonary fibrosis, DM, recurrent UTIs, Parkinson's disease, and dementia; s/p left BKA and partial gastrectomy. Admitted for abdominal pain and diarrhea. Found to be in severe systolic heart failure. Abdominal pain Diarrhea Elevated bilirubin Transaminitis --CTAP unremarkable for acute abdominal or pelvic pathology --US abd: cholelithiasis, no sign of cholecystitis --MRCP pending --stool studies, c.diff ordered --continue ceftriaxone and metronidazole --stop statin --hepatitis panel pending --GI following --surgery consult requested, Dr. 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 Coronary artery disease --continue ASA, Lipitor, carvedilol, ticagrelor --need old cardiology records as on DAPT, question indication and stenting when and which coronaries Peripheral arterial disease Left BKA Elevated troponins --downtrending Elevated creatinine --baseline Cr 1.2; on last admission bumped up to 1.6, thought to be secondary to SINDHU --Cr 1.6 today --continue to trend COPD Pulmonary fibrosis --continue Symbicort, albuterol nebs PRN Type II NIDDM --Novolog sliding scale coverage --Levemir 15U qhs (lowered dose from home dose of 45U) Parkinsons --continue levodopa/carbidopa --continue cyclobenzeprine Dementia --at baseline FEN Fluids: PO intake adequate Electrolytes: replete as indicated Nutrition: clears DVT prophylaxis: SCDs; hold chemical prophylaxis due to possible surgical intervention Physical therapy Dispo: continues to require inpatient care. Full code. Visit type - Emergency Visit Emergency Visit: Yes ED Registration Date: 02/22/18 Care time: The patient presented to the Emergency Department on the above date and was hospitalized for further evaluation of their emergent condition. - New Patient This patient is new to me today: No - Critical Care Critical Care patient: No
--- NOTE | 2018-02-24 12:38 | CON.GI ---
Consult Consult Specialty:: GI Referred by:: Hospitalist Service Reason for Consultation:: Abdominal pain and abnormal liver chemistries - History of Present Illness Chief Complaint: Lee Silber conference interpreter: [id number] History of Present Illness: 77F admitted for evaluation of abdominal pain. Lee Silber Senior Cyber Security Analyst [id number] utilized. I also obtained history from her daughter mai via telephone as Ms. Downing is a poor historian. Ms. Downing describes intermittent mid/upper abdominal pain occurring for some time now. This got worse over the last few days prompting admssion. She denies nausea / vomiting. Her daughter described diarrhea associated with the abdominal pain. There was no overt rectal bleeding or melena. Per her daughter Mai, she describes Ms. Downing undergoing partial gastrectomy for PUD. This was performed in the and at that time "a little cancer" was resected from the stomach as well. She has followed with Dr. Fili Yadav, whom Mai believes performed EGD and colonoscopy on Ms. Downing. They were both uncertain when this occurred. Mai also explained that Dr. Meyer, Ms. Downing's PMD, Recently told her that her LFTs were elevated. In review of the [employer] system, Ms. Downing's ALP was mildly elevated at 144 with transaminases and bili being normal. Currently ALP is 309 with AST: 474 ALT: 59 1.2 ALB: 2.5. There is no known history of liver disease. 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 - Alcohol/Substance Use Hx Alcohol Use: No History of Substance Use: reports: None - Smoking History Smoking history: Never smoked Have you smoked in the past 12 months: No Aproximately how many cigarettes per day: 0 - Social History ADL: Family Assistance Place of : Other ([place]) History of Recent Travel: No Home Medications - Allergies Allergies/Adverse Reactions: Allergies Allergy/AdvReac Type Severity Reaction Status Date / Time clarithromycin [From Biaxin] Allergy Verified 02/22/18 15:18 levofloxacin [From Levaquin] Allergy Verified 02/22/18 15:18 sulfamethoxazole Allergy Verified 02/22/18 15:18 [From Bactrim] trimethoprim [From Bactrim] Allergy Verified 02/22/18 15:18 - Home Medications Home Medications: Ambulatory Orders Aspirin 81 mg PO DAILY 01/25/18 Atorvastatin Calcium [Lipitor] 20 mg PO HS 01/25/18 Bethanechol Chloride [Urecholine] 50 mg PO BID 01/25/18 Budesonide/Formeterol Fumarate [SYMBICORT 160/4.5mcg -] 1 inh PO DAILY 01/25/18 Carbidopa/Levodopa [Carbidopa-Levodopa 25-100 Tab] 1 each PO BID 01/25/18 Carvedilol [Coreg -] 25 mg PO BID 01/25/18 Cholecalciferol (Vitamin D3) [Vitamin D3 -] 1,000 unit PO DAILY 01/25/18 Esomeprazole Magnesium [Nexium 24Hr] 40 mg PO DAILY 01/25/18 Insulin Glargine,Hum.rec.anlog [Lantus Solostar PEN -] 0 units SQ HS 01/25/18 Isosorbide Mononitrate [Imdur -] 30 mg PO DAILY 01/25/18 Meclizine HCl [Antivert -] 12.5 mg PO QID PRN 01/25/18 Methenamine Hippurate [Hiprex [Nf] -] 1 gm PO DAILY 01/25/18 Ranolazine [Ranexa -] 500 mg PO HS 01/25/18 Ticagrelor [Brilinta -] 90 mg PO BID 01/25/18 Acetaminophen [Tylenol .Regular Strength -] 650 mg PO Q6H tablet 01/29/18 Cyclobenzaprine HCl 5 mg PO BID #10 tablet 01/29/18 Polyethylene Glycol 3350 [Miralax 119 gm Btl -] 17 gm PO BID #1 bottle 01/29/18 Losartan Potassium [Cozaar -] 50 mg PO DAILY 02/22/18 Sitagliptin Phos/Metformin HCl [Janumet 50-1,000 mg Tablet] 1 each PO BID Family Disease History - Family Disease History Family Disease History: Diabetes: Mother (: 86: diabetic complications), Heart Disease: Father (: 44: [place]), Other: Father, Mother, Brother (2, : diabetic complications), Son (1, healthy), Daughter (4, healthy) Other Family History: No family history of colorectal cancer Review of Systems - Review of Systems Constitutional: denies: Chills Cardiovascular: reports: Shortness of Breath. denies: Chest Pain Gastrointestinal: reports: Abdominal Pain, Diarrhea, Melena, Nausea. denies: Constipation, Dysphagia, Indigestion, Rectal Bleeding, Vomiting Physical Exam-GI Vital Signs: Vital Signs Temperature 97.6 F 02/24/18 06:00 Pulse Rate 50 L 02/24/18 10:00 Respiratory Rate 20 02/24/18 10:00 Blood Pressure 118/80 02/24/18 10:00 O2 Sat by Pulse Oximetry (%) 96 02/24/18 09:00 Constitutional: Yes: Calm Eyes: No: Sclera Icterus Cardiovascular: Yes: Regular Rate and Rhythm. No: Murmur Respiratory: Yes: Rhonchi (bases bilaterally) Gastrointestinal Inspection: Yes: Scars (deep vertical midline abdominal surgical scar). No: Distention ...Auscultate: Yes: Normoactive Bowel Sounds ...Palpate: No: Hepatomegaly, Splenomegaly, Tenderness ...Percussion: No: Tympanitic ...Rectal Exam: Yes: Other (No external lesions, no masses, light brown liquid stool in rectal vault, guaiac positive) Edema: No Edema: LLE: 4+ (BKA) Neurological: Yes: Alert Labs: CBC, BMP 02/24/18 06:53 02/24/18 06:53 INR, PTT INR 1.48 (0.83-1.09) H 02/23/18 05:30 Hepatic Panel Total Bilirubin 1.2 mg/dL (0.2-1) H 02/24/18 06:53 AST 474 U/L (15-37) H 02/24/18 06:53 ALT 59 U/L (13-61) 02/24/18 06:53 Alkaline Phosphatase 309 U/L (45-117) H 02/24/18 06:53 Albumin 2.5 g/dl (3.4-5.0) L 02/24/18 06:53 Laboratory Tests 02/23/18 10:40 Creatine Kinase 35 Imaging - Results Cat Scan: Report Reviewed (Non contrast study: Bilateral pleural effusions, significant calcifications of the abdominal aorta and all of its branches) Ultrasound: Report Reviewed (cholelithiasis, fatty liver, no biliary tract dilatation) Problem List - Problems (1) Abdominal pain Assessment/Plan: Mid / upper abdominal pain described: Currently asymptomatic Via field health officer this was described as post prandial by Ms. Downing. Per her daughter, it was described as occurring with and without meals and associated with diarrhea Given LFT abnormality (? passage of stones / retained CBD stone / passive congestion) and the above pain complaints, I have ordered MRCP to further evaluate biliary tract. I also stopped statin therapy and ordered screening hepatitis serologies. Monitor LFTs Clear liquids for now Code(s): R10.9 - UNSPECIFIED ABDOMINAL PAIN (2) Anemia Assessment/Plan: Anemia appears chronic. She is guaiac positive, however, and I discussed this with both Ms. Downing and her daughter. I explained that Upper endoscopy and colnoscopy could be undertaken to assess for occult blood source such as bleeding blood vessels, polyps or cancer of the intestonal tract. We discussed potential risks of the procedure like but not limited to bleeding, perforation requiring surgery to repair, infection, sedation medication effects all of which could be potentially life threatening. They have agreed to the procedures. This would be performed once medically optimized and with Brillinta held (asa 81mg once daily could be continued). Cardiology is following. Code(s): D64.9 - ANEMIA, UNSPECIFIED Qualifiers: Anemia type: unspecified type Qualified Code(s): D64.9 - Anemia, unspecified (3) Diarrhea Assessment/Plan: Ordered stool for C. Diff Code(s): R19.7 - DIARRHEA, UNSPECIFIED
--- NOTE | 2018-02-24 12:38 | PN ---
Progress Note, Physician Chief Complaint: no complaints tele neg History of Present Illness: 77 year old female with a pmhx of htn, hld, dm, copd, gerd, pulmonary fibrosis, UTIs, PVD, dementia, gastric ulcers, h/o gastric CA s/p partial gastrectomy, CAD , and CHF presenting with SOB and epigastric pain. Abdominal pain is chronic but worse last 2 weeks or so associated with diarrhea. No chest pain but worsening SOB last couple weeks with +PND/orthopnea. ER course was notable for: Trop: 0.35, Cr - 1.5, BNP: 34,120 EKG: Sinus w/ PVCs, LVH, non-specific repolarization with some T wave changes in I, AVL, V5,V6 non changed from prior EKG on 01/25/18 Echo 02/23/18: EF 25-35%, global HK, moderate MR/TR - Current Medication List Current Medications: Active Medications Acetaminophen (Tylenol -) 650 mg PO Q6HPO [facility] Last Admin: 02/24/18 12:08 Dose: 650 mg Al Hydroxide/Mg Hydroxide (Mylanta Oral Suspension -) 30 ml PO Q6H PRN PRN Reason: DYSPEPSIA Albuterol Sulfate (Ventolin 0.083% Nebulizer Soln -) 1 amp NEB Q4H PRN PRN Reason: SHORT OF BREATH/WHEEZING Aspirin (Asa -) 81 mg PO DAILY [facility] Last Admin: 02/24/18 09:49 Dose: 81 mg Atorvastatin Calcium (Lipitor -) 20 mg PO HS [facility] Last Admin: 02/23/18 22:11 Dose: 20 mg Budesonide/Formoterol Fumarate (Symbicort 160/4.5mcg -) 2 puff IH BID [facility] Last Admin: 02/24/18 09:54 Dose: 2 puff Carbidopa/Levodopa (Sinemet 25/100 -) 1 each PO BID [facility] Last Admin: 02/24/18 09:49 Dose: 1 each Carvedilol (Coreg -) 25 mg PO BID [facility] Last Admin: 02/24/18 09:51 Dose: 25 mg Cholecalciferol (Vitamin D3 -) 1,000 unit PO DAILY [facility] Last Admin: 02/24/18 09:49 Dose: 1,000 unit Cyclobenzaprine HCl (Flexeril -) 5 mg PO BID [facility] Last Admin: 02/24/18 09:49 Dose: 5 mg Furosemide (Lasix Injection -) 40 mg IVPUSH DAILY [facility] Last Admin: 02/24/18 09:32 Dose: 40 mg Metronidazole (Flagyl 500mg Premixed Ivpb -) 500 mg in 100 mls @ 100 mls/hr IVPB Q8H-IV [facility] Last Admin: 02/24/18 09:49 Dose: 100 mls/hr Sodium Chloride (Normal Saline -) 1,000 mls @ 50 mls/hr IV ASDIR [facility] Stop: 02/24/18 17:27 Last Admin: 02/23/18 19:10 Dose: 50 mls/hr Insulin Aspart (Novolog Vial Sliding Scale -) 1 vial SQ [facility]; Protocol Last Admin: 02/24/18 12:09 Dose: 2 unit Insulin Detemir (Levemir Vial) 45 units SQ [facility] Last Admin: 02/23/18 22:18 Dose: Not Given Isosorbide Mononitrate (Imdur -) 30 mg PO DAILY [facility] Last Admin: 02/24/18 09:51 Dose: 30 mg Meclizine HCl (Antivert -) 12.5 mg PO QID PRN PRN Reason: VERTIGO Non-Formulary Medication (Methenamine Hippurate) 1 gm PO DAILY [facility] Pantoprazole Sodium (Protonix -) 40 mg PO DAILY [facility] Last Admin: 02/24/18 09:49 Dose: 40 mg Ranolazine (Ranexa -) 500 mg PO HS [facility] Last Admin: 02/23/18 22:11 Dose: 500 mg Spironolactone (Aldactone -) 25 mg PO DAILY [facility] Last Admin: 02/24/18 09:52 Dose: 25 mg Ticagrelor (Brilinta -) 90 mg PO BID [facility] Last Admin: 02/24/18 09:50 Dose: 90 mg - Objective Vital Signs: Vital Signs Temperature 97.6 F 02/24/18 06:00 Pulse Rate 50 L 02/24/18 10:00 Respiratory Rate 20 02/24/18 10:00 Blood Pressure 118/80 02/24/18 10:00 O2 Sat by Pulse Oximetry (%) 96 02/24/18 09:00 Constitutional: Yes: No Distress, Calm Eyes: Yes: EOM Intact HENT: Yes: Normocephalic Neck: Yes: Trachea Midline Cardiovascular: Yes: Regular Rate and Rhythm Respiratory: Yes: CTA Bilaterally Gastrointestinal: Yes: Normal Bowel Sounds, Soft Musculoskeletal: Yes: WNL Extremities: Yes: WNL Edema: No Peripheral Pulses WNL: Yes Labs: CBC, BMP 02/24/18 06:53 02/24/18 06:53 INR, PTT INR 1.48 (0.83-1.09) H 02/23/18 05:30 Assessment/Plan 77 year old female with a pmhx of htn, hld, dm, copd, gerd, pulmonary fibrosis, UTIs, PVD, dementia, gastric ulcers, h/o gastric CA s/p partial gastrectomy, CAD , and CHF presenting with SOB and epigastric pain. Abdominal pain is chronic but worse last 2 weeks or so associated with diarrhea. No chest pain but worsening SOB last couple weeks with +PND/orthopnea. ER course was notable for: Trop: 0.35, Cr - 1.5, BNP: 34,120 EKG: Sinus w/ PVCs, LVH, non-specific repolarization with some T wave changes in I, AVL, V5,V6 non changed from prior EKG on 01/25/18 Echo 02/23/18: glob HK EF 25-35% moderate MR/TR 1) Acute on chronic systolic CHF -Volume overloaded with BNP 34,120 Furosemide 40mg IV daily -Monitor lytes, bun/cr, and I/O's -Unclear how new this drop in LVEF is as last echo 2012 Please attempt to get records from pmd 2) CAD On aspirin/brillinta/statin/carvedilol On tele Get old records as on DAPT question indication and stenting when and which coronaries 3) GI F/u with primary team regarding Abx and GI work up. CHF can given some elevated LFTs and discomfort but given patient's history and cholelithiasis on imaging f/u with primary team regarding any further GI work up and treatment.
[2018-02-24] MEDS ORDERED: INSULIN (NOVOLOG) ASPART 100 UNITS/ML 10ML VIAL ONE (18:58)
[2018-02-24] MEDS: RANOLAZINE E.R. 500 MG TABLET (FP) PO SCH (21:48)
[2018-02-24] MEDS: INSULIN (LEVEMIR) 100 UNITS/ML UNITS SQ SCH (22:35)
[2018-02-25] MEDS: ACETAMINOPHEN 325 MG TABLET (FP) PO SCH ×5 (00:25→23:35)
[2018-02-25] MEDS: INSULIN SLIDING SCALE (NOVOLOG) 1 VIAL SQ SCH ×4 (06:23→22:26)
[2018-02-25 07:23] LABS: ALBUMIN 2.5 g/dl (3.4-5.0); BILIRUBIN,DIRECT 0.4 mg/dL (0.0-0.2); BILIRUBIN,TOTAL 0.7 mg/dL (0.2-1); TOT PROT 5.3 g/dl (6.4-8.2)
[2018-02-25] MEDS: CARBIDOPA/LEVODOPA 25/100 TABLET (FP) PO SCH ×2 (09:29→22:18)
[2018-02-25] MEDS: CHOLECALCIFEROL (VITAMIN D3) 1,000 UNIT TABLET (FP) PO SCH (09:29)
[2018-02-25] MEDS: ISOSORBIDE MONONITRATE 30 MG TAB.SR.24H (FP) PO SCH (09:29)
[2018-02-25] MEDS: PANTOPRAZOLE 40 MG TABLET (FP) PO SCH (09:29)
[2018-02-25] MEDS: CARVEDILOL 25 MG TABLET (FP) PO SCH ×2 (09:29→22:18)
[2018-02-25] MEDS: FUROSEMIDE 40 MG/4 ML INJECTABLE VIAL IVPUSH SCH (09:29)
[2018-02-25] MEDS: ASPIRIN 81 MG CHEWABLE TABLETS PO SCH (09:29)
[2018-02-25] MEDS: TICAGRELOR 90 MG TABLET PO SCH (09:30)
[2018-02-25] MEDS: SPIRONOLACTONE 25 MG TABLET (FP) PO SCH (09:30)
[2018-02-25] MEDS: CYCLOBENZAPRINE HCL 10 MG TABLET (FP) PO SCH ×2 (09:30→22:18)
[2018-02-25 09:58] LABS: BASO % 0.4 % (0-2.0); EOS % 2.7 % (0-4.5); HEMOGLOBIN 9.6 GM/dL (10.7-15.3); LYMPH % 17.9 % (8-40); MCH 27.7 pg (25.7-33.7); MCHC 34.2 g/dl (32.0-36.0); MEAN CELL VOLUME 81.1 fl (80-96); MEAN PLT VOLUME 9.3 fl (7.5-11.1); MONO % 9.9 % (3.8-10.2); NEUT % 69.1 % (42.8-82.8); PLATELET COUNT 282 K/MM3 (134-434); RBC 3.46 M/mm3 (3.60-5.2); RDW 17.2 % (11.6-15.6); WHITE BLOOD COUNT 7.5 K/mm3 (4.0-10.0)
[2018-02-25] MEDS: BUDESONIDE/FORMETEROL FUMARATE 160/4.5 mcg INHALER IH SCH ×2 (10:00→22:18)
[2018-02-25 10:52] LABS: ANION GAP 11 MMOL/L (8-16); BLOOD UREA NITROGEN 48 mg/dL (7-18); CALCIUM 7.8 mg/dL (8.5-10.1); CHLORIDE 106 mmol/L (98-107); CO2 25 mmol/L (21-32); CREATININE 1.8 mg/dL (0.55-1.3); GLUCOSE,RANDOM 109 mg/dL (74-106); MAGNESIUM 2.1 mg/dL (1.8-2.4); PHOSPHOROUS 4.2 mg/dL (2.5-4.9); POTASSIUM 3.2 mmol/L (3.5-5.1); SODIUM 142 mmol/L (136-145)
[2018-02-25] MEDS ORDERED: LORazepam 2 MG/ML SDV VIAL IVPUSH ONE (13:47)
--- NOTE | 2018-02-25 16:00 | PN ---
Progress Note (short form) - Note Progress Note: s: no cp palps dizzy; sob better - Current Medication List Current Medications Generic Name Dose Route Start Last Admin Trade Name Freq PRN Reason Stop Dose Admin Acetaminophen 650 mg 02/23/18 18:00 02/25/18 06:23 Tylenol - PO Not Given Q6HPO [facility] Al Hydroxide/Mg Hydroxide 30 ml 02/22/18 22:49 02/24/18 18:08 Mylanta Oral Suspension - PO 30 ml Q6H PRN Administration DYSPEPSIA Albuterol Sulfate 1 amp 02/23/18 01:58 Ventolin 0.083% Nebulizer Soln - NEB Q4H PRN SHORT OF BREATH/WHEEZING Aspirin 81 mg 02/23/18 10:00 02/25/18 09:29 Asa - PO 81 mg DAILY [facility] Administration Budesonide/Formoterol Fumarate 2 puff 02/23/18 22:00 02/24/18 22:34 Symbicort 160/4.5mcg - IH 2 puff BID [facility] Administration Carbidopa/Levodopa 1 each 02/23/18 10:00 02/25/18 09:29 Sinemet 25/100 - PO 1 each BID [facility] Administration Carvedilol 25 mg 02/23/18 10:00 02/25/18 09:29 Coreg - PO 25 mg BID [facility] Administration Cholecalciferol 1,000 unit 02/23/18 10:00 02/25/18 09:29 Vitamin D3 - PO 1,000 unit DAILY [facility] Administration Cyclobenzaprine HCl 5 mg 02/23/18 22:00 02/25/18 09:30 Flexeril - PO 5 mg BID [facility] Administration Furosemide 40 mg 02/23/18 14:45 02/25/18 09:29 Lasix Injection - IVPUSH 40 mg DAILY [facility] Administration Metronidazole 500 mg in 100 mls @ 100 mls/hr 02/23/18 15:15 02/25/18 02:05 Flagyl 500mg Premixed Ivpb - IVPB 100 mls/hr Q8H-IV [facility] Administration Insulin Aspart 1 vial 02/23/18 07:00 02/25/18 14:07 Novolog Vial Sliding Scale - SQ Not Given ACHS [facility] Protocol Insulin Detemir 15 units 02/24/18 22:00 02/24/18 22:35 Levemir Vial SQ Not Given HS [facility] Isosorbide Mononitrate 30 mg 02/23/18 10:00 02/25/18 09:29 Imdur - PO 30 mg DAILY [facility] Administration Meclizine HCl 12.5 mg 02/22/18 23:21 Antivert - PO QID PRN VERTIGO Pantoprazole Sodium 40 mg 02/23/18 10:00 02/25/18 09:29 Protonix - PO 40 mg DAILY [facility] Administration Ranolazine 500 mg 02/23/18 22:00 02/24/18 21:48 Ranexa - PO 500 mg HS [facility] Administration Spironolactone 25 mg 02/24/18 10:00 02/25/18 09:30 Aldactone - PO 25 mg DAILY [facility] Administration Ticagrelor 90 mg 02/23/18 10:00 02/25/18 09:30 Brilinta - PO 90 mg BID [facility] Administration - Objective Vital Signs: Vital Signs Period Temp Pulse Resp BP Sys/Ott Pulse Ox Last 24 Hr 97 F-98.4 F 61-70 18-20 105-132/47-62 100-100 nad no jvd rrr s1s2 no mrg cta bl nl eff aaox3 no le e/c/c abd nt nd pos bs no jaundice diaphoresis CBC, BMP 02/25/18 09:37 02/25/18 05:30 EKG: Sinus w/ PVCs, LVH, non-specific repolarization with some T wave changes in I, AVL, V5,V6 non changed from prior EKG on 01/25/18 echo 04/2016: tds; inferolat ak, lvef 40-45, rv tds, lae, mild mr Echo 02/23/18: glob HK EF 25-35% moderate MR/TR tele: sr Assessment/Plan 77 year old female with a pmhx of htn, hld, dm, copd, gerd, pulmonary fibrosis, UTIs, PVD, dementia, gastric ulcers, h/o gastric CA s/p partial gastrectomy, CAD , and CHF presenting with SOB and epigastric pain. Acute on chronic systolic CHF, sob: -Volume overloaded with BNP 34,120 -symptomatically improving, cont furosemide 40mg IV daily -Monitor daily lytes, bun/cr, and I/O's, wt -echo from 2016 shows lvef 40-45, current echo reports lvef 25-35. No signs of acs here, trops not significantly elevated. Possible declined due to acute chf. Would repeat echo asa outpt when acute issues resolve. -cont coreg and aldactone for chf. Not on delmer 2/2 ckd. CAD s/p remote pci: -last pci was 2013 to rca. she is plavix nonresponder and had ISR so plan per outpt cardio was to continue brilinta and asa for 3 years post pci. This has now passed so will stop brilinta. -cont bb, asa. statin held for now due to elevated lfts PAD s/p left aka: -cont asa, statin, bp control elevated lfts: - CHF can given some elevated LFTs and discomfort but given patient's history and cholelithiasis on imaging would f/u with GI in regards to further work up and treatment.
--- NOTE | 2018-02-25 16:46 | PN ---
Teaching Attending Note Name of Resident: Adamaris Veliz ATTENDING PHYSICIAN STATEMENT I saw and evaluated the patient. I reviewed the resident's note and discussed the case with the resident. I agree with the resident's findings and plan as documented with exceptions below. SUBJECTIVE: Patient seen and examined. denies any nausea, vomiting, abdominal pain. No diarrhea today, had some last night after dinner. Dark stools. Still with dyspnea, but breathing improved. Daughter at bedside. OBJECTIVE: Vital Signs Period Temp Pulse Resp BP Sys/Ott Pulse Ox Last 24 Hr 97 F-98.4 F 61-70 18-20 105-132/47-62 100-100 Intake & Output 02/22/18 02/23/18 02/24/18 02/25/18 23:59 23:59 23:59 23:59 Intake Total 300 1910 550 Balance 300 1910 550 Weight 130 lb 130 lb General: sitting in bed in no acute distress Chest: bibasilar fine rales, good air entry Neck: soft, supple, neck vein distension Abdomen:Soft, mild epigastric tenderness, midline surgical scar, no voluntary or involuntary guarding or rigidity, positive bowel sounds Extremities: trace pedal edema, left AKA Home Medications Medication Instructions Recorded Aspirin 81 mg PO DAILY 01/25/18 Atorvastatin Calcium [Lipitor] 20 mg PO HS 01/25/18 Bethanechol Chloride [Urecholine] 50 mg PO BID 01/25/18 Budesonide/Formeterol Fumarate 1 inh PO DAILY 01/25/18 [SYMBICORT 160/4.5mcg -] Carbidopa/Levodopa 1 each PO BID 01/25/18 [Carbidopa-Levodopa 25-100 Tab] Carvedilol [Coreg -] 25 mg PO BID 01/25/18 Cholecalciferol (Vitamin D3) 1,000 unit PO DAILY 01/25/18 [Vitamin D3 -] Esomeprazole Magnesium [Nexium 40 mg PO DAILY 01/25/18 24Hr] Insulin Glargine,Hum.rec.anlog 0 units SQ HS 01/25/18 [Lantus Solostar PEN -] Isosorbide Mononitrate [Imdur -] 30 mg PO DAILY 01/25/18 Meclizine HCl [Antivert -] 12.5 mg PO QID PRN 01/25/18 Methenamine Hippurate [Hiprex [Nf] 1 gm PO DAILY 01/25/18 -] Ranolazine [Ranexa -] 500 mg PO HS 01/25/18 Ticagrelor [Brilinta -] 90 mg PO BID 01/25/18 Acetaminophen [Tylenol .Regular 650 mg PO Q6H tablet 01/29/18 Strength -] Cyclobenzaprine HCl 5 mg PO BID #10 tablet 01/29/18 Polyethylene Glycol 3350 [Miralax 17 gm PO BID #1 bottle 01/29/18 119 gm Btl -] Losartan Potassium [Cozaar -] 50 mg PO DAILY 02/22/18 Sitagliptin Phos/Metformin HCl 1 each PO BID 02/22/18 [Janumet 50-1,000 mg Tablet] Active Medications Acetaminophen (Tylenol -) 650 mg PO Q6HPO [facility] Last Admin: 02/25/18 06:23 Dose: Not Given Al Hydroxide/Mg Hydroxide (Mylanta Oral Suspension -) 30 ml PO Q6H PRN PRN Reason: DYSPEPSIA Last Admin: 02/24/18 18:08 Dose: 30 ml Albuterol Sulfate (Ventolin 0.083% Nebulizer Soln -) 1 amp NEB Q4H PRN PRN Reason: SHORT OF BREATH/WHEEZING Aspirin (Asa -) 81 mg PO DAILY [facility] Last Admin: 02/25/18 09:29 Dose: 81 mg Budesonide/Formoterol Fumarate (Symbicort 160/4.5mcg -) 2 puff IH BID [facility] Last Admin: 02/24/18 22:34 Dose: 2 puff Carbidopa/Levodopa (Sinemet 25/100 -) 1 each PO BID [facility] Last Admin: 02/25/18 09:29 Dose: 1 each Carvedilol (Coreg -) 25 mg PO BID [facility] Last Admin: 02/25/18 09:29 Dose: 25 mg Cholecalciferol (Vitamin D3 -) 1,000 unit PO DAILY [facility] Last Admin: 02/25/18 09:29 Dose: 1,000 unit Cyclobenzaprine HCl (Flexeril -) 5 mg PO BID [facility] Last Admin: 02/25/18 09:30 Dose: 5 mg Furosemide (Lasix Injection -) 40 mg IVPUSH DAILY [facility] Last Admin: 02/25/18 09:29 Dose: 40 mg Metronidazole (Flagyl 500mg Premixed Ivpb -) 500 mg in 100 mls @ 100 mls/hr IVPB Q8H-IV [facility] Last Admin: 02/25/18 02:05 Dose: 100 mls/hr Insulin Aspart (Novolog Vial Sliding Scale -) 1 vial SQ [facility]; Protocol Last Admin: 02/25/18 14:07 Dose: Not Given Insulin Detemir (Levemir Vial) 15 units SQ HS [facility] Last Admin: 02/24/18 22:35 Dose: Not Given Isosorbide Mononitrate (Imdur -) 30 mg PO DAILY [facility] Last Admin: 02/25/18 09:29 Dose: 30 mg Meclizine HCl (Antivert -) 12.5 mg PO QID PRN PRN Reason: VERTIGO Pantoprazole Sodium (Protonix -) 40 mg PO DAILY [facility] Last Admin: 02/25/18 09:29 Dose: 40 mg Ranolazine (Ranexa -) 500 mg PO HS [facility] Last Admin: 02/24/18 21:48 Dose: 500 mg Spironolactone (Aldactone -) 25 mg PO DAILY [facility] Last Admin: 02/25/18 09:30 Dose: 25 mg Ticagrelor (Brilinta -) 90 mg PO BID [facility] Last Admin: 02/25/18 09:30 Dose: 90 mg ASSESSMENT AND PLAN: 77 year-old female with a PMH significant for HTN, CAD, systolic HF, peripheral arterial disease, COPD, pulmonary fibrosis, DM, recurrent UTIs, Parkinson's disease, and dementia; s/p left AKA and partial gastrectomy. Admitted for abdominal pain and dark diarrhea. Found to be in severe systolic heart failure. -Abdominal Pain -Diarrhea, occult GI bleed -Acute systolic heart failure exacerbation (EF 25-35% from 40-45% in 2017) -ROLDAN on CKD suspect from above -Chronic anemia -CAD s/p remote PCI (last PCI to RCA 2013), plavix non responder on Brillinta -PAD s/p Right AKA -COPD -Pulmonary fibrosis -IDDM -Parkinson's disease -Dementia Plan: LFTS improved. Follow up MRCP. Hold statins for now. Abdominal US noted. s/p ceftriaxone/flagyl on admission. stool c difficile. CT A/P neg for infectious/inflammatory process. Hold off on abx for now. Cardiology input noted. d/c brilliinta. COntinue ASA/coreg/ranexa/Isosorbide. Lasix 40 mg IV daily, with strict I/Os and daily weights. EF lower than 2017, follow up with cardiology for additional input. Monitor h/h, continue protonix. Renal function improved, continue lasix. ISS, diabetic diet. Continue sinemet/Symbicort/Nebs prn DVTPPX SCDs dispo pending GI w/u and clinical course. Plan discussed with patient and daughter at bedside in detail, all questions answered.
[2018-02-25] MEDS ORDERED: POTASSIUM CHLORIDE ORAL LIQUID 20 MEQ/15 ML PO ONE (16:59)
--- NOTE | 2018-02-25 17:38 | PN ---
Physical Exam: SUBJECTIVE: Patient seen and examined at bed side this morning. Complaining of abdominal pain, in the epigastric area. Denies nausea or vomiting. Daughter at bedside. One bowel movement overnight, blackish in color. OBJECTIVE: Vital Signs Period Temp Pulse Resp BP Sys/Ott Pulse Ox Last 24 Hr 97 F-98.4 F 61-70 18-20 105-132/47-62 100-100 GENERAL: Albanian speaking elderly female, patient is awake, alert, and fully oriented, in no acute distress. HEAD: Normal with no signs of trauma. EYES: EOM intact, no pallor or icterus. ENT: Ears normal, moist mucous membranes. NECK: Supple. LUNGS: Breath sounds equal, clear to auscultation bilaterally, no wheezes, no crackles, no accessory muscle use. HEART: Regular rate and rhythm, S1, S2 without murmur, rub or gallop. ABDOMEN: Surgical scar thompson +, well healed, Soft, tenderness in the epigastric area, normoactive bowel sounds, no organomegaly. EXTREMITIES: 2+ pulses, warm, well-perfused, no edema. Left BKA-scar well healed. NEUROLOGICAL:No facial droop. Normal speech, gait not observed. PSYCH: Normal mood, normal affect. SKIN: Warm, dry, normal turgor, no rashes or lesions noted Laboratory Results - last 24 hr 02/24/18 02/25/18 02/25/18 21:50 05:30 05:30 WBC RBC Hgb Hct MCV MCH MCHC RDW Plt Count MPV Absolute Neuts (auto) Neutrophils % Lymphocytes % Monocytes % Eosinophils % Basophils % Nucleated RBC % Sodium 142 Potassium 3.2 L Chloride 106 Carbon Dioxide 25 Anion Gap 11 BUN 48 H Creatinine 1.8 H Creat Clearance w eGFR 27.14 POC Glucometer 189 Random Glucose 109 H Calcium 7.8 L Phosphorus 4.2 Magnesium 2.1 Total Bilirubin 0.7 Cancelled Direct Bilirubin 0.4 H Cancelled AST 238 H Cancelled ALT 50 Cancelled Alkaline Phosphatase 266 H Cancelled B-Natriuretic Peptide 21768.0 H Total Protein 5.3 L Cancelled Albumin 2.5 L Cancelled 02/25/18 02/25/18 02/25/18 06:18 09:37 14:05 WBC 7.5 RBC 3.46 L Hgb 9.6 L Hct 28.0 L MCV 81.1 MCH 27.7 MCHC 34.2 RDW 17.2 H Plt Count 282 MPV 9.3 Absolute Neuts (auto) 5.2 Neutrophils % 69.1 Lymphocytes % 17.9 D Monocytes % 9.9 Eosinophils % 2.7 D Basophils % 0.4 D Nucleated RBC % 0 Sodium Potassium Chloride Carbon Dioxide Anion Gap BUN Creatinine Creat Clearance w eGFR POC Glucometer 122 141 Random Glucose Calcium Phosphorus Magnesium Total Bilirubin Direct Bilirubin AST ALT Alkaline Phosphatase B-Natriuretic Peptide Total Protein Albumin 02/25/18 16:55 WBC RBC Hgb Hct MCV MCH MCHC RDW Plt Count MPV Absolute Neuts (auto) Neutrophils % Lymphocytes % Monocytes % Eosinophils % Basophils % Nucleated RBC % Sodium Potassium Chloride Carbon Dioxide Anion Gap BUN Creatinine Creat Clearance w eGFR POC Glucometer 287 Random Glucose Calcium Phosphorus Magnesium Total Bilirubin Direct Bilirubin AST ALT Alkaline Phosphatase B-Natriuretic Peptide Total Protein Albumin Active Medications Generic Name Dose Route Start Last Admin Trade Name Freq PRN Reason Stop Dose Admin Acetaminophen 650 mg 02/23/18 18:00 02/25/18 17:07 Tylenol - PO Not Given Q6HPO [facility] Al Hydroxide/Mg Hydroxide 30 ml 02/22/18 22:49 02/24/18 18:08 Mylanta Oral Suspension - PO 30 ml Q6H PRN Administration DYSPEPSIA Albuterol Sulfate 1 amp 02/23/18 01:58 Ventolin 0.083% Nebulizer Soln - NEB Q4H PRN SHORT OF BREATH/WHEEZING Aspirin 81 mg 02/23/18 10:00 02/25/18 09:29 Asa - PO 81 mg DAILY [facility] Administration Budesonide/Formoterol Fumarate 2 puff 02/23/18 22:00 02/25/18 10:00 Symbicort 160/4.5mcg - IH 2 puff BID [facility] Administration Carbidopa/Levodopa 1 each 02/23/18 10:00 02/25/18 09:29 Sinemet 25/100 - PO 1 each BID [facility] Administration Carvedilol 25 mg 02/23/18 10:00 02/25/18 09:29 Coreg - PO 25 mg BID [facility] Administration Cholecalciferol 1,000 unit 02/23/18 10:00 02/25/18 09:29 Vitamin D3 - PO 1,000 unit DAILY [facility] Administration Cyclobenzaprine HCl 5 mg 02/23/18 22:00 02/25/18 09:30 Flexeril - PO 5 mg BID [facility] Administration Furosemide 40 mg 02/23/18 14:45 02/25/18 09:29 Lasix Injection - IVPUSH 40 mg DAILY [facility] Administration Insulin Aspart 1 vial 02/23/18 07:00 02/25/18 17:13 Novolog Vial Sliding Scale - SQ 6 unit ACHS [facility] Administration Protocol Insulin Detemir 15 units 02/24/18 22:00 02/24/18 22:35 Levemir Vial SQ Not Given HS [facility] Isosorbide Mononitrate 30 mg 02/23/18 10:00 02/25/18 09:29 Imdur - PO 30 mg DAILY [facility] Administration Meclizine HCl 12.5 mg 02/22/18 23:21 Antivert - PO QID PRN V[facility]O Pantoprazole Sodium 40 mg 02/23/18 10:00 02/25/18 09:29 Protonix - PO 40 mg DAILY [facility] Administration Ranolazine 500 mg 02/23/18 22:00 02/24/18 21:48 Ranexa - PO 500 mg HS [facility] Administration Spironolactone 25 mg 02/24/18 10:00 02/25/18 09:30 Aldactone - PO 25 mg DAILY [facility] Administration ASSESSMENT/PLAN: Patient is a 77 yearold female with a PMH significant for HTN, CAD, systolic HF , peripheral arterial disease, COPD, pulmonary fibrosis, DM, recurrent UTIs, Parkinson's disease, and dementia; s/p left AKA and partial gastrectomy admitted for abdominal pain and dark stool. # Abdominal pain unknown etiology c/o abdominal pain, dark colored stool Labs significant for elevated LFT's D.bili 0.4, AST> ALT MRCP to be done today, 0.5 mg of IV Ativan ordered for anxiety Hold statins Hep panel pending Appreciate GI consult # Acute on chronic CHF exacerbation improving BNP 96536 (improved from 02/22/18-it was 53502 in ) Continue IV Lasix 40mg Daily Daily weights I's and O's # DM ISS, finger sticks, watch for hypoglycemic episodes # COPD Continue nebs # Parkinsons Continue sinemet # HTN controlled Continue coreg 25 daily, isosorbide, spironolactone 25 mg # Hypokalemia: Repleted # FEN Not on IV fluids, can tolerate po Electrolytes repleted Clear liquid diet # Prophylaxis For Gi: Continue Protonix 40mg Daily For DVT: SCDs, # Code Status: Full Code # Dispo: Admitted in Tele Illness, Investigation and Plan of care explained to the patient and her daughter. They verbalized understanding. Case discussed with Dr. Arriola. Visit type - Emergency Visit Emergency Visit: Yes ED Registration Date: 02/22/18 Care time: The patient presented to the Emergency Department on the above date and was hospitalized for further evaluation of their emergent condition. - New Patient This patient is new to me today: Yes Date on this admission: 02/25/18 - Critical Care Critical Care patient: No - Discharge Referral Referred to [facility] No
--- NOTE | 2018-02-25 18:58 | PN ---
GI Progress Note Subjective: No acute events No abdominal pain SOB improved Cardiology note reviewed: decreased EF currently 25-35% and Brillinyta being discontinued MRI performed today Daughter present at bedside - Objective Vital Signs: Vital Signs Temperature 98.4 F 02/25/18 14:00 Pulse Rate 67 02/25/18 14:00 Respiratory Rate 20 02/25/18 09:00 Blood Pressure 126/60 02/25/18 14:00 O2 Sat by Pulse Oximetry (%) 100 02/25/18 09:00 Constitutional: Calm Eyes: No: Sclera Icterus Cardiovascular: Yes: Regular Rate and Rhythm Respiratory: Yes: Rhonchi (bases b/l) Gastrointestinal Inspection: Yes: Scars. No: Distention ...Auscultate: Yes: Normoactive Bowel Sounds ...Palpate: No: Hepatomegaly, Splenomegaly, Tenderness ...Percussion: No: Tympanitic Neurological: Yes: Alert Labs: CBC, BMP 02/25/18 09:37 02/25/18 05:30 INR, PTT INR 1.48 (0.83-1.09) H 02/23/18 05:30 Microbiology 02/24/18 16:00 Stool Clostridium difficile Antigen (AMADO) - neg 02/24/18 16:00 Stool Clostridium difficile Toxin Assay - neg Problem List - Problems (1) Abdominal pain Assessment/Plan: Currently asymptomatic Awaiting MRCP result LFTs showing some improvement. COntinue to monitor Clears for now Code(s): R10.9 - UNSPECIFIED ABDOMINAL PAIN (2) Anemia Assessment/Plan: When cleared from cardiopulomary standpoint and when Brillinta effect wears off , EGD and colonoscopy can be performed Code(s): D64.9 - ANEMIA, UNSPECIFIED Qualifiers: Anemia type: unspecified type Qualified Code(s): D64.9 - Anemia, unspecified (3) Diarrhea Assessment/Plan: No copious diarrhea C. Diff neg Code(s): R19.7 - DIARRHEA, UNSPECIFIED
[2018-02-25] MEDS: ALBUTEROL SO4 0.083% IH SOL 2.5 MG/3 ML VIAL.NEB. NEB PRN (21:15)
[2018-02-25] MEDS: RANOLAZINE E.R. 500 MG TABLET (FP) PO SCH (22:18)
[2018-02-25] MEDS: INSULIN (LEVEMIR) 100 UNITS/ML UNITS SQ SCH (22:26)
[2018-02-26 06:56] LABS: MCH 25.6 pg (25.7-33.7); MCHC 31.1 g/dl (32.0-36.0); MEAN CELL VOLUME 82.2 fl (80-96); MEAN PLT VOLUME 9.1 fl (7.5-11.1); PLATELET COUNT 290 K/MM3 (134-434); RDW 17.5 % (11.6-15.6); WHITE BLOOD COUNT 8.1 K/mm3 (4.0-10.0)
[2018-02-26] MEDS: ACETAMINOPHEN 325 MG TABLET (FP) PO SCH ×4 (06:57→23:35)
[2018-02-26] MEDS: INSULIN SLIDING SCALE (NOVOLOG) 1 VIAL SQ SCH ×4 (06:59→21:20)
[2018-02-26 07:17] LABS: ALBUMIN 2.7 g/dl (3.4-5.0); ALK PHOS 264 U/L (45-117); ANION GAP 10 MMOL/L (8-16); BILIRUBIN,TOTAL 0.8 mg/dL (0.2-1); BLOOD UREA NITROGEN 42 mg/dL (7-18); CALCIUM 8.3 mg/dL (8.5-10.1); CHLORIDE 104 mmol/L (98-107); CO2 25 mmol/L (21-32); CREATININE 1.7 mg/dL (0.55-1.3); GLUCOSE,RANDOM 78 mg/dL (74-106); MAGNESIUM 2.3 mg/dL (1.8-2.4); PHOSPHOROUS 3.8 mg/dL (2.5-4.9); POTASSIUM 4.2 mmol/L (3.5-5.1); SGOT/AST 237 U/L (15-37); SGPT/ALT 52 U/L (13-61); SODIUM 138 mmol/L (136-145); TOT PROT 6.1 g/dl (6.4-8.2)
[2018-02-26] MEDS: PANTOPRAZOLE 40 MG TABLET (FP) PO SCH (11:25)
[2018-02-26] MEDS: ISOSORBIDE MONONITRATE 30 MG TAB.SR.24H (FP) PO SCH (11:25)
[2018-02-26] MEDS: SPIRONOLACTONE 25 MG TABLET (FP) PO SCH (11:25)
[2018-02-26] MEDS: CHOLECALCIFEROL (VITAMIN D3) 1,000 UNIT TABLET (FP) PO SCH (11:25)
[2018-02-26] MEDS: CARVEDILOL 25 MG TABLET (FP) PO SCH ×2 (11:25→21:20)
[2018-02-26] MEDS: CYCLOBENZAPRINE HCL 10 MG TABLET (FP) PO SCH ×2 (11:25→21:20)
[2018-02-26] MEDS: BUDESONIDE/FORMETEROL FUMARATE 160/4.5 mcg INHALER IH SCH ×2 (11:26→21:23)
[2018-02-26] MEDS: CARBIDOPA/LEVODOPA 25/100 TABLET (FP) PO SCH ×2 (11:26→21:20)
[2018-02-26] MEDS: FUROSEMIDE 40 MG/4 ML INJECTABLE VIAL IVPUSH SCH ×2 (11:26→15:39)
[2018-02-26] MEDS: ASPIRIN 81 MG CHEWABLE TABLETS PO SCH (11:26)
--- NOTE | 2018-02-26 12:13 | PN ---
GI Progress Note Subjective: Family at bedside. Complains of shortness of breath. this was already discussed with PMD earlier - Objective Vital Signs: Vital Signs Temperature 97.3 F L 02/26/18 06:00 Pulse Rate 68 02/26/18 09:52 Respiratory Rate 18 02/26/18 09:52 Blood Pressure 143/63 02/26/18 09:52 O2 Sat by Pulse Oximetry (%) 96 02/26/18 09:00 Constitutional: Calm Eyes: No: Sclera Icterus Cardiovascular: Yes: Regular Rate and Rhythm Respiratory: Yes: Diminished (at bases bilaterally) Gastrointestinal Inspection: Yes: Scars. No: Distention ...Auscultate: Yes: Normoactive Bowel Sounds ...Palpate: No: Hepatomegaly, Splenomegaly, Tenderness ...Percussion: No: Tympanitic Neurological: Yes: Alert Labs: CBC, BMP 02/26/18 06:00 02/26/18 06:00 INR, PTT INR 1.48 (0.83-1.09) H 02/23/18 05:30 Hepatic Panel Total Bilirubin 0.8 mg/dL (0.2-1) 02/26/18 06:00 Direct Bilirubin 0.4 mg/dL (0.0-0.2) H 02/25/18 05:30 AST 237 U/L (15-37) H 02/26/18 06:00 ALT 52 U/L (13-61) 02/26/18 06:00 Alkaline Phosphatase 264 U/L (45-117) H 02/26/18 06:00 Albumin 2.7 g/dl (3.4-5.0) L 02/26/18 06:00 - ....Imaging MRI: Report Reviewed (Study limited by motion artifact: mod bilateral pleural effusions, Cholelithiasis, Non dilated biliary tract, ? small filling defect vs.artifact posteriorly in CBD) Problem List - Problems (1) Abdominal pain Assessment/Plan: Improved Suspect that abdominal pain and LFT abnormality is reflective of CHF however given post prandial component of the pain and MRCP findings, choledocholithiasis not definitively excluded. In terms of further evaluation, ERCP deferred at this time given that Brilinta has just been stopped and will require 5-7 days to be out of system, Mr. Downing is stoill actively in CHF with reduced EF, no evidence of cholangitis and also, with questionable findings on MRCP, a less invasive evaluation of the CBD such as EUS should be considered. Transfer to [facility] would be required when the patient is medically optimized. Monitor LFts Full liquids IV Abx Discussed with family at bedside Code(s): R10.9 - UNSPECIFIED ABDOMINAL PAIN (2) Anemia Assessment/Plan: When optimized, colonoscopy Code(s): D64.9 - ANEMIA, UNSPECIFIED Qualifiers: Anemia type: unspecified type Qualified Code(s): D64.9 - Anemia, unspecified
--- NOTE | 2018-02-26 13:05 | PN ---
Progress Note (short form) - Note Progress Note: s: no cp palps dizzy; sob persists, +abd pain (ruq) - Current Medication List Current Medications Generic Name Dose Route Start Last Admin Trade Name Freq PRN Reason Stop Dose Admin Acetaminophen 650 mg 02/23/18 18:00 02/26/18 11:25 Tylenol - PO 650 mg Q6HPO AKIL Administration Al Hydroxide/Mg Hydroxide 30 ml 02/22/18 22:49 02/24/18 18:08 Mylanta Oral Suspension - PO 30 ml Q6H PRN Administration DYSPEPSIA Albuterol Sulfate 1 amp 02/23/18 01:58 02/25/18 21:15 Ventolin 0.083% Nebulizer Soln - NEB 1 amp Q4H PRN Administration SHORT OF BREATH/WHEEZING Aspirin 81 mg 02/23/18 10:00 02/26/18 11:26 Asa - PO 81 mg DAILY AKIL Administration Budesonide/Formoterol Fumarate 2 puff 02/23/18 22:00 02/26/18 11:26 Symbicort 160/4.5mcg - IH 2 puff BID AKIL Administration Carbidopa/Levodopa 1 each 02/23/18 10:00 02/26/18 11:26 Sinemet 25/100 - PO 1 each BID AKIL Administration Carvedilol 25 mg 02/23/18 10:00 02/26/18 11:25 Coreg - PO 25 mg BID AKIL Administration Cholecalciferol 1,000 unit 02/23/18 10:00 02/26/18 11:25 Vitamin D3 - PO 1,000 unit DAILY AKIL Administration Cyclobenzaprine HCl 5 mg 02/23/18 22:00 02/26/18 11:25 Flexeril - PO 5 mg BID AKIL Administration Furosemide 40 mg 02/26/18 14:00 Lasix Injection - IVPUSH BID@0600,1400 [facility] Insulin Aspart 1 vial 02/23/18 07:00 02/26/18 11:35 Novolog Vial Sliding Scale - SQ Not Given ACHS [facility] Protocol Insulin Detemir 15 units 02/24/18 22:00 02/25/18 22:26 Levemir Vial SQ 15 units HS AKIL Administration Isosorbide Mononitrate 30 mg 02/23/18 10:00 02/26/18 11:25 Imdur - PO 30 mg DAILY AKIL Administration Meclizine HCl 12.5 mg 02/22/18 23:21 Antivert - PO QID PRN VERTIGO Pantoprazole Sodium 40 mg 02/23/18 10:00 02/26/18 11:25 Protonix - PO 40 mg DAILY AKIL Administration Ranolazine 500 mg 02/23/18 22:00 02/25/18 22:18 Ranexa - PO 500 mg HS AKIL Administration Spironolactone 25 mg 02/24/18 10:00 02/26/18 11:25 Aldactone - PO 25 mg DAILY AKIL Administration - Objective Vital Signs: Vital Signs Period Temp Pulse Resp BP Sys/Ott Pulse Ox Last 24 Hr 97.3 F-98.4 F 65-68 18-20 95-143/54-63 96-100 nad no jvd rrr s1s2 no mrg cta bl nl eff aaox3 no le e/c/c abd tender ruq no jaundice diaphoresis CBC, BMP 02/26/18 06:00 02/26/18 06:00 EKG: Sinus w/ PVCs, LVH, non-specific repolarization with some T wave changes in I, AVL, V5,V6 non changed from prior EKG on 01/25/18 echo 04/2016: tds; inferolat ak, lvef 40-45, rv tds, lae, mild mr Echo 02/23/18: glob HK EF 25-35% moderate MR/TR tele: sr (4 beats nsvt) Assessment/Plan 77 year old female with a pmhx of htn, hld, dm, copd, gerd, pulmonary fibrosis, UTIs, PVD, dementia, gastric ulcers, h/o gastric CA s/p partial gastrectomy, CAD , and CHF presenting with SOB and epigastric pain. Acute on chronic systolic CHF, sob: -Volume overloaded with BNP 34,120 -symptomatically improving, but still with bl effs on imaging. Cr stable, will increase to lasix 40 iv bid -Monitor daily lytes, bun/cr, and I/O's, wt -echo from 2016 shows lvef 40-45, current echo reports lvef 25-35. No signs of acs here, trops not significantly elevated. Possible declined due to acute chf. Would repeat echo asa outpt when acute issues resolve. -cont coreg and aldactone for chf. Not on delmer 2/2 ckd. CAD s/p remote pci: -last pci was 2013 to rca. she is plavix nonresponder and had ISR so plan per outpt cardio was to continue brilinta and asa for 3 years post pci. This has now passed so stopped brilinta here. -cont bb, asa. statin held for now due to elevated lfts PAD s/p left aka: -cont asa, statin, bp control elevated lfts: - CHF can given some elevated LFTs and discomfort but given patient's history and cholelithiasis on imaging would f/u with GI in regards to further work up and treatment.
--- NOTE | 2018-02-26 16:18 | PN ---
Teaching Attending Note Name of Resident: Adamaris Veliz ATTENDING PHYSICIAN STATEMENT I saw and evaluated the patient. I reviewed the resident's note and discussed the case with the resident. I agree with the resident's findings and plan as documented with exceptions below. SUBJECTIVE: Patient seen and examined. Some shortness of breath and abdominal pain last night, improved currently. OBJECTIVE: Vital Signs Period Temp Pulse Resp BP Sys/Ott Pulse Ox Last 24 Hr 97.3 F-98.2 F 64-68 18-20 95-143/54-63 96-100 Intake & Output 02/23/18 02/24/18 02/25/18 02/26/18 23:59 23:59 23:59 23:59 Intake Total 300 1910 1050 370 Balance 300 1910 1050 370 Weight 130 lb 130 lb General: sitting in bed in no acute distress Neck: soft, supple, neck vein distension Chest: bibasilar rales, improved air entry Abdomen:soft, NT Extremities: Right 1+ pitting edema, left AKA Home Medications Medication Instructions Recorded Aspirin 81 mg PO DAILY 01/25/18 Atorvastatin Calcium [Lipitor] 20 mg PO HS 01/25/18 Bethanechol Chloride [Urecholine] 50 mg PO BID 01/25/18 Budesonide/Formeterol Fumarate 1 inh PO DAILY 01/25/18 [SYMBICORT 160/4.5mcg -] Carbidopa/Levodopa 1 each PO BID 01/25/18 [Carbidopa-Levodopa 25-100 Tab] Carvedilol [Coreg -] 25 mg PO BID 01/25/18 Cholecalciferol (Vitamin D3) 1,000 unit PO DAILY 01/25/18 [Vitamin D3 -] Esomeprazole Magnesium [Nexium 40 mg PO DAILY 01/25/18 24Hr] Insulin Glargine,Hum.rec.anlog 0 units SQ HS 01/25/18 [Lantus Solostar PEN -] Isosorbide Mononitrate [Imdur -] 30 mg PO DAILY 01/25/18 Meclizine HCl [Antivert -] 12.5 mg PO QID PRN 01/25/18 Methenamine Hippurate [Hiprex [Nf] 1 gm PO DAILY 01/25/18 -] Ranolazine [Ranexa -] 500 mg PO HS 01/25/18 Ticagrelor [Brilinta -] 90 mg PO BID 01/25/18 Acetaminophen [Tylenol .Regular 650 mg PO Q6H tablet 01/29/18 Strength -] Cyclobenzaprine HCl 5 mg PO BID #10 tablet 01/29/18 Polyethylene Glycol 3350 [Miralax 17 gm PO BID #1 bottle 01/29/18 119 gm Btl -] Losartan Potassium [Cozaar -] 50 mg PO DAILY 02/22/18 Sitagliptin Phos/Metformin HCl 1 each PO BID 02/22/18 [Janumet 50-1,000 mg Tablet] Active Medications Acetaminophen (Tylenol -) 650 mg PO Q6HPO [facility] Last Admin: 02/26/18 11:25 Dose: 650 mg Al Hydroxide/Mg Hydroxide (Mylanta Oral Suspension -) 30 ml PO Q6H PRN PRN Reason: DYSPEPSIA Last Admin: 02/24/18 18:08 Dose: 30 ml Albuterol Sulfate (Ventolin 0.083% Nebulizer Soln -) 1 amp NEB Q4H PRN PRN Reason: SHORT OF BREATH/WHEEZING Last Admin: 02/25/18 21:15 Dose: 1 amp Aspirin (Asa -) 81 mg PO DAILY [facility] Last Admin: 02/26/18 11:26 Dose: 81 mg Budesonide/Formoterol Fumarate (Symbicort 160/4.5mcg -) 2 puff IH BID [facility] Last Admin: 02/26/18 11:26 Dose: 2 puff Carbidopa/Levodopa (Sinemet 25/100 -) 1 each PO BID [facility] Last Admin: 02/26/18 11:26 Dose: 1 each Carvedilol (Coreg -) 25 mg PO BID [facility] Last Admin: 02/26/18 11:25 Dose: 25 mg Cholecalciferol (Vitamin D3 -) 1,000 unit PO DAILY [facility] Last Admin: 02/26/18 11:25 Dose: 1,000 unit Cyclobenzaprine HCl (Flexeril -) 5 mg PO BID [facility] Last Admin: 02/26/18 11:25 Dose: 5 mg Furosemide (Lasix Injection -) 40 mg IVPUSH BID@0600,1400 [facility] Last Admin: 02/26/18 15:39 Dose: 40 mg Insulin Aspart (Novolog Vial Sliding Scale -) 1 vial SQ [facility]; Protocol Last Admin: 02/26/18 11:35 Dose: Not Given Insulin Detemir (Levemir Vial) 15 units SQ [facility] Last Admin: 02/25/18 22:26 Dose: 15 units Isosorbide Mononitrate (Imdur -) 30 mg PO DAILY [facility] Last Admin: 02/26/18 11:25 Dose: 30 mg Meclizine HCl (Antivert -) 12.5 mg PO QID PRN PRN Reason: VERTIGO Pantoprazole Sodium (Protonix -) 40 mg PO DAILY [facility] Last Admin: 02/26/18 11:25 Dose: 40 mg Ranolazine (Ranexa -) 500 mg PO HS [facility] Last Admin: 02/25/18 22:18 Dose: 500 mg Spironolactone (Aldactone -) 25 mg PO DAILY [facility] Last Admin: 02/26/18 11:25 Dose: 25 mg Laboratory Results - last 24 hr 02/25/18 02/25/18 02/25/18 05:30 16:55 22:17 WBC RBC Hgb Hct MCV MCH MCHC RDW Plt Count MPV Sodium Potassium Chloride Carbon Dioxide Anion Gap BUN Creatinine Creat Clearance w eGFR POC Glucometer 287 257 Random Glucose Calcium Phosphorus Magnesium Total Bilirubin AST ALT Alkaline Phosphatase Total Protein Albumin Hep C Ab Diagnostic <0.1 02/26/18 02/26/18 02/26/18 06:00 06:00 06:03 WBC 8.1 RBC 3.90 Hgb 10.0 L Hct 32.0 L MCV 82.2 MCH 25.6 L MCHC 31.1 L RDW 17.5 H Plt Count 290 MPV 9.1 Sodium 138 Potassium 4.2 Chloride 104 Carbon Dioxide 25 Anion Gap 10 BUN 42 H Creatinine 1.7 H Creat Clearance w eGFR 28.99 POC Glucometer 79 Random Glucose 78 Calcium 8.3 L Phosphorus 3.8 Magnesium 2.3 Total Bilirubin 0.8 AST 237 H ALT 52 Alkaline Phosphatase 264 H Total Protein 6.1 L Albumin 2.7 L Hep C Ab Diagnostic Microbiology 02/23/18 15:45 Blood - Peripheral Venous Blood Culture - Preliminary NO GROWTH OBTAINED AFTER 72 HOURS, INCUBATION TO CONTINUE FOR 2 DAYS. 02/23/18 15:45 Blood - Peripheral Venous Blood Culture - Preliminary NO GROWTH OBTAINED AFTER 48 HOURS, INCUBATION TO CONTINUE FOR 3 DAYS. 02/24/18 16:00 Stool Clostridium difficile Antigen (AMADO) - Final 02/24/18 16:00 Stool Clostridium difficile Toxin Assay - Final 02/23/18 19:05 Urine - Urine - Catheterized Urine Culture - Final NO GROWTH OBTAINED ASSESSMENT AND PLAN: 77 year-old female with a PMH significant for HTN, CAD, systolic HF, peripheral arterial disease, COPD, pulmonary fibrosis, DM, recurrent UTIs, Parkinson's disease, and dementia; s/p left AKA and partial gastrectomy. Admitted for abdominal pain and dark diarrhea. Found to be in severe systolic heart failure. -Abdominal Pain -Diarrhea, occult GI bleed -Acute systolic heart failure exacerbation (EF 25-35% from 40-45% in 2017) -ROLDAN on CKD suspect from above -Chronic anemia -CAD s/p remote PCI (last PCI to RCA 2013), plavix non responder on Brillinta -PAD s/p Right AKA -COPD -Pulmonary fibrosis -IDDM -Parkinson's disease -Dementia Plan: LFTS improved. MRCP/Abdominal US noted, GI input noted. Plan for transfer to [facility] for EUS once volume status improved. Hold statins for now. s/p ceftriaxone/flagyl on admission. stool c difficile neg. CT A/P neg for infectious/inflammatory process. Hold off on abx for now. Cardiology input noted. Off Brillinta. COntinue ASA/coreg/ranexa/Isosorbide. Lasix increased to 40 mg BID , with strict I/Os and daily weights. EF lower than 2017, follow up with cardiology for additional input. Monitor h/h, continue protonix. Renal function improved, continue lasix. ISS, diabetic diet. Continue sinemet/Symbicort/Nebs prn DVTPPX SCDs dispo possible transfer to [facility] for EUS once volume status improved. Plan discussed with patient and daughter at bedside in detail, all questions answered.
--- NOTE | 2018-02-26 16:18 | PN ---
Physical Exam: SUBJECTIVE: Patient seen and examined at bed side this morning. Daughter at bed side. Patient reports abdominal pain still persists. NO bowel movement today. In the afternoon, patient complained of anxiety. On further questioning, daughter mentions patient has been anxious since few days, even prior to admission. One dose of xanax 0.25 mg given. OBJECTIVE: Vital Signs Period Temp Pulse Resp BP Sys/Ott Pulse Ox Last 24 Hr 97.3 F-98.2 F 64-68 18-20 95-143/54-63 96-100 GENERAL: Turkish speaking elderly female, patient is awake, alert, and fully oriented, in no acute distress. HEAD: Normal with no signs of trauma. EYES: EOM intact, no pallor or icterus. ENT: Ears normal, moist mucous membranes. NECK: Supple. LUNGS: Breath sounds equal, clear to auscultation bilaterally, no wheezes, no crackles, no accessory muscle use. HEART: Regular rate and rhythm, S1, S2 without murmur, rub or gallop. ABDOMEN: Surgical scar thompson +, well healed, Soft, tenderness in the epigastric area, normoactive bowel sounds, no organomegaly. EXTREMITIES: 2+ pulses, warm, well-perfused, no edema. Left BKA-scar well healed. NEUROLOGICAL:No facial droop. Normal speech, gait not observed. PSYCH: Normal mood, normal affect. SKIN: Warm, dry, normal turgor, no rashes or lesions noted Laboratory Results - last 24 hr 02/25/18 02/25/18 02/25/18 05:30 16:55 22:17 WBC RBC Hgb Hct MCV MCH MCHC RDW Plt Count MPV Sodium Potassium Chloride Carbon Dioxide Anion Gap BUN Creatinine Creat Clearance w eGFR POC Glucometer 287 257 Random Glucose Calcium Phosphorus Magnesium Total Bilirubin AST ALT Alkaline Phosphatase Total Protein Albumin Hep C Ab Diagnostic <0.1 02/26/18 02/26/18 02/26/18 06:00 06:00 06:03 WBC 8.1 RBC 3.90 Hgb 10.0 L Hct 32.0 L MCV 82.2 MCH 25.6 L MCHC 31.1 L RDW 17.5 H Plt Count 290 MPV 9.1 Sodium 138 Potassium 4.2 Chloride 104 Carbon Dioxide 25 Anion Gap 10 BUN 42 H Creatinine 1.7 H Creat Clearance w eGFR 28.99 POC Glucometer 79 Random Glucose 78 Calcium 8.3 L Phosphorus 3.8 Magnesium 2.3 Total Bilirubin 0.8 AST 237 H ALT 52 Alkaline Phosphatase 264 H Total Protein 6.1 L Albumin 2.7 L Hep C Ab Diagnostic Active Medications Generic Name Dose Route Start Last Admin Trade Name Freq PRN Reason Stop Dose Admin Acetaminophen 650 mg 02/23/18 18:00 02/26/18 11:25 Tylenol - PO 650 mg Q6HPO AKIL Administration Al Hydroxide/Mg Hydroxide 30 ml 02/22/18 22:49 02/24/18 18:08 Mylanta Oral Suspension - PO 30 ml Q6H PRN Administration DYSPEPSIA Albuterol Sulfate 1 amp 02/23/18 01:58 02/25/18 21:15 Ventolin 0.083% Nebulizer Soln - NEB 1 amp Q4H PRN Administration SHORT OF BREATH/WHEEZING Aspirin 81 mg 02/23/18 10:00 02/26/18 11:26 Asa - PO 81 mg DAILY AKIL Administration Budesonide/Formoterol Fumarate 2 puff 02/23/18 22:00 02/26/18 11:26 Symbicort 160/4.5mcg - IH 2 puff BID AKIL Administration Carbidopa/Levodopa 1 each 02/23/18 10:00 02/26/18 11:26 Sinemet 25/100 - PO 1 each BID AKIL Administration Carvedilol 25 mg 02/23/18 10:00 02/26/18 11:25 Coreg - PO 25 mg BID AKIL Administration Cholecalciferol 1,000 unit 02/23/18 10:00 02/26/18 11:25 Vitamin D3 - PO 1,000 unit DAILY AKIL Administration Cyclobenzaprine HCl 5 mg 02/23/18 22:00 02/26/18 11:25 Flexeril - PO 5 mg BID AKIL Administration Furosemide 40 mg 02/26/18 14:00 02/26/18 15:39 Lasix Injection - IVPUSH 40 mg BID@0600,1400 AKIL Administration Insulin Aspart 1 vial 02/23/18 07:00 02/26/18 11:35 Novolog Vial Sliding Scale - SQ Not Given ACHS [facility] Protocol Insulin Detemir 15 units 02/24/18 22:00 02/25/18 22:26 Levemir Vial SQ 15 units HS AKIL Administration Isosorbide Mononitrate 30 mg 02/23/18 10:00 02/26/18 11:25 Imdur - PO 30 mg DAILY AKIL Administration Meclizine HCl 12.5 mg 02/22/18 23:21 Antivert - PO QID PRN VERTIGO Pantoprazole Sodium 40 mg 02/23/18 10:00 02/26/18 11:25 Protonix - PO 40 mg DAILY AKIL Administration Ranolazine 500 mg 02/23/18 22:00 02/25/18 22:18 Ranexa - PO 500 mg HS AKIL Administration Spironolactone 25 mg 02/24/18 10:00 02/26/18 11:25 Aldactone - PO 25 mg DAILY AKIL Administration 02/25/18 MRCP : Cholelithiasis. Moderate bilateral pleural effusions with overlying atelectasis vs infiltrates. Subcutaneous edema, trace fluid adjacent to the inferior edge of the liver and in the pericholecystic space coupled with bilateral pleural effusions. An underlying element of 3rd spacing is suspected. Pericholecystic fluid could be secondary to 3rd spacing however underlying cholecystitis cannot be excluded. Markedly limited MRCP images due to motion. Suggestion of tiny nonobstructing filling defect posteriorly in the CBD. It is not clear if this represents a tiny stone or artifact. No biliary ductal dilatation seen. Atrophic kidneys likely chronic medical renal disease. Small right renal cysts. ASSESSMENT/PLAN: Patient is a 77 yearold female with a PMH significant for HTN, CAD, systolic HF , peripheral arterial disease, COPD, pulmonary fibrosis, DM, recurrent UTIs, Parkinson's disease, and dementia; s/p left AKA and partial gastrectomy admitted for abdominal pain and dark stool. # Abdominal pain unknown etiology Elevated liver enzymes could be from hepatic congestion from CHF. . MRCP done, no evidence of choledocholithiasis.report as above. Appreciate GI consult, recommends to transfer to [facility] for possible EUS Brillanta stopped 02/25/18, needs to wait for 5-7 days Dark colored stool- c diff ruled out. # Anxiety One dose of Xanax 0.25 mg given today. Will reassess and start her on standing medication if needed. # Acute on chronic CHF exacerbation improving BNP 57114 (improved from 02/22/18-it was 26499 in ) Continue IV Lasix 40mg BID Daily weights I's and O's # DM ISS, finger sticks, watch for hypoglycemic episodes # COPD Continue nebs # Parkinsons Continue sinemet # HTN controlled Continue coreg 25 daily, isosorbide, spironolactone 25 mg # Hypokalemia: Repleted # FEN Not on IV fluids, can tolerate po Electrolytes repleted Clear liquid diet # Prophylaxis For Gi: Continue Protonix 40mg Daily For DVT: SCDs, # Code Status: Full Code # Dispo: Admitted in Tele Illness, Investigation and Plan of care explained to the patient and her daughter. They verbalized understanding. Case discussed with Dr. Arriola. Visit type - Emergency Visit Emergency Visit: Yes ED Registration Date: 02/22/18 Care time: The patient presented to the Emergency Department on the above date and was hospitalized for further evaluation of their emergent condition. - New Patient This patient is new to me today: No - Critical Care Critical Care patient: No - Discharge Referral Referred to [facility] Med [facility] No
[2018-02-26] MEDS ORDERED: ALPRAZolam 0.25 MG TABLET PO ONE (17:18)
[2018-02-26] MEDS: RANOLAZINE E.R. 500 MG TABLET (FP) PO SCH (21:20)
[2018-02-26] MEDS: INSULIN (LEVEMIR) 100 UNITS/ML UNITS SQ SCH (21:20)
[2018-02-26 22:11] LABS: HBSAG SCREEN Negative (Negative); HEP A AB, IGM Negative (Negative); HEP B CORE AB, TOT Negative (Negative)
[2018-02-26] MEDS: ALBUTEROL SO4 0.083% IH SOL 2.5 MG/3 ML VIAL.NEB. NEB PRN (23:39)
[2018-02-27] MEDS: INSULIN SLIDING SCALE (NOVOLOG) 1 VIAL SQ SCH ×2 (06:15→13:31)
[2018-02-27] MEDS: ACETAMINOPHEN 325 MG TABLET (FP) PO SCH ×2 (06:19→15:35)
[2018-02-27] MEDS: FUROSEMIDE 40 MG/4 ML INJECTABLE VIAL IVPUSH SCH ×2 (06:19→15:35)
[2018-02-27 07:19] LABS: HEMATOCRIT 31.2 % (32.4-45.2); HEMOGLOBIN 9.9 GM/dL (10.7-15.3); MCH 26.1 pg (25.7-33.7); MCHC 31.8 g/dl (32.0-36.0); MEAN CELL VOLUME 82.2 fl (80-96); MEAN PLT VOLUME 9.2 fl (7.5-11.1); PLATELET COUNT 228 K/MM3 (134-434); RBC 3.79 M/mm3 (3.60-5.2); RDW 17.8 % (11.6-15.6); WHITE BLOOD COUNT 8.3 K/mm3 (4.0-10.0)
[2018-02-27 09:00] LABS: ANION GAP 11 MMOL/L (8-16); BLOOD UREA NITROGEN 45 mg/dL (7-18); CALCIUM 8.2 mg/dL (8.5-10.1); CHLORIDE 101 mmol/L (98-107); CO2 24 mmol/L (21-32); CREATININE 1.9 mg/dL (0.55-1.3); GLUCOSE,RANDOM 98 mg/dL (74-106); POTASSIUM 4.2 mmol/L (3.5-5.1); SODIUM 136 mmol/L (136-145)
[2018-02-27 09:01] LABS: ALBUMIN 2.6 g/dl (3.4-5.0); ALK PHOS 246 U/L (45-117); BILIRUBIN,TOTAL 0.8 mg/dL (0.2-1); SGOT/AST 577 U/L (15-37); SGPT/ALT 102 U/L (13-61); TOT PROT 5.7 g/dl (6.4-8.2)
--- NOTE | 2018-02-27 10:27 | PN ---
Progress Note (short form) - Note Progress Note: s: no cp palps dizzy; sob persists, +abd pain (ruq) - Current Medication List Current Medications Generic Name Dose Route Start Last Admin Trade Name Freq PRN Reason Stop Dose Admin Acetaminophen 650 mg 02/23/18 18:00 02/27/18 06:19 Tylenol - PO 650 mg Q6HPO AKIL Administration Al Hydroxide/Mg Hydroxide 30 ml 02/22/18 22:49 02/24/18 18:08 Mylanta Oral Suspension - PO 30 ml Q6H PRN Administration DYSPEPSIA Albuterol Sulfate 1 amp 02/23/18 01:58 02/26/18 23:39 Ventolin 0.083% Nebulizer Soln - NEB 1 amp Q4H PRN Administration SHORT OF BREATH/WHEEZING Aspirin 81 mg 02/23/18 10:00 02/26/18 11:26 Asa - PO 81 mg DAILY AKIL Administration Budesonide/Formoterol Fumarate 2 puff 02/23/18 22:00 02/26/18 21:23 Symbicort 160/4.5mcg - IH 2 puff BID AKIL Administration Carbidopa/Levodopa 1 each 02/23/18 10:00 02/26/18 21:20 Sinemet 25/100 - PO 1 each BID AKIL Administration Carvedilol 25 mg 02/23/18 10:00 02/26/18 21:20 Coreg - PO 25 mg BID AKIL Administration Cholecalciferol 1,000 unit 02/23/18 10:00 02/26/18 11:25 Vitamin D3 - PO 1,000 unit DAILY AKIL Administration Cyclobenzaprine HCl 5 mg 02/23/18 22:00 02/26/18 21:20 Flexeril - PO 5 mg BID AKIL Administration Furosemide 40 mg 02/26/18 14:00 02/27/18 06:19 Lasix Injection - IVPUSH 40 mg BID@0600,1400 AKIL Administration Insulin Aspart 1 vial 02/23/18 07:00 02/27/18 06:15 Novolog Vial Sliding Scale - SQ Not Given ACHS [facility] Protocol Insulin Detemir 15 units 02/24/18 22:00 02/26/18 21:20 Levemir Vial SQ 15 units HS AKIL Administration Isosorbide Mononitrate 30 mg 02/23/18 10:00 02/26/18 11:25 Imdur - PO 30 mg DAILY AKIL Administration Meclizine HCl 12.5 mg 02/22/18 23:21 Antivert - PO QID PRN VERTIGO Pantoprazole Sodium 40 mg 02/23/18 10:00 02/26/18 11:25 Protonix - PO 40 mg DAILY AKIL Administration Ranolazine 500 mg 02/23/18 22:00 02/26/18 21:20 Ranexa - PO 500 mg HS AKIL Administration Spironolactone 25 mg 02/24/18 10:00 02/26/18 11:25 Aldactone - PO 25 mg DAILY AKIL Administration - Objective Vital Signs: Vital Signs Period Temp Pulse Resp BP Sys/Ott Pulse Ox Last 24 Hr 97.3 F-97.7 F 59-66 18-22 108-124/54-63 96-96 nad no jvd rrr s1s2 no mrg cta bl nl eff aaox3 no le e/c/c abd tender ruq no jaundice diaphoresis CBC, BMP 02/27/18 06:25 02/27/18 06:25 EKG: Sinus w/ PVCs, LVH, non-specific repolarization with some T wave changes in I, AVL, V5,V6 non changed from prior EKG on 01/25/18 echo 04/2016: tds; inferolat ak, lvef 40-45, rv tds, lae, mild mr Echo 02/23/18: glob HK EF 25-35% moderate MR/TR tele: sr Assessment/Plan 77 year old female with a pmhx of htn, hld, dm, copd, gerd, pulmonary fibrosis, UTIs, PVD, dementia, gastric ulcers, h/o gastric CA s/p partial gastrectomy, CAD , and CHF presenting with SOB and epigastric pain. Acute on chronic systolic CHF, sob: -Volume overloaded with BNP 34,120 -symptomatically improving, continue lasix 40 iv bid, cr stable. Will check cxr tomorrow, if improved would change to po lasix. -Monitor daily lytes, bun/cr, and I/O's, wt -echo from 2017 shows lvef 40-45, current echo reports lvef 25-35. No signs of acs here, trops not significantly elevated. Possible declined due to acute chf. Would repeat echo asa outpt when acute issues resolve. -cont coreg and aldactone for chf. Not on delmer 2/2 ckd. CAD s/p remote pci: -last pci was 2013 to rca. she is plavix nonresponder and had ISR so plan per outpt cardio was to continue brilinta and asa for 3 years post pci. This has now passed so stopped brilinta here. -cont bb, asa. statin held for now due to elevated lfts PAD s/p left aka: -cont asa, statin, bp control elevated lfts: - CHF can given some elevated LFTs and discomfort but given patient's history and cholelithiasis on imaging would f/u with GI in regards to further work up and treatment. GI considering transfer to [facility] for EUS.
--- NOTE | 2018-02-27 10:34 | PN ---
Teaching Attending Note Name of Resident: Adamaris Veliz ATTENDING PHYSICIAN STATEMENT I saw and evaluated the patient. I reviewed the resident's note and discussed the case with the resident. I agree with the resident's findings and plan as documented with exceptions below. SUBJECTIVE: Patient seen and examined. Breathing improved, no abdominal pain currently. tolerating diet well. OBJECTIVE: Vital Signs Period Temp Pulse Resp BP Sys/Ott Pulse Ox Last 24 Hr 97.3 F-97.7 F 59-66 18-22 108-124/54-63 96-96 Intake & Output 02/24/18 02/25/18 02/26/18 02/27/18 23:59 23:59 23:59 23:59 Intake Total 1909 1050 920 370 Balance 1909 1050 920 370 Weight 130 lb 147 lb 12.8 oz General: sitting in bed in no acute distress Chest: Bibasilar rales, good air entry, improved exam Abdomen;Soft, mild bilateral natan-umbilical tenderness, neg Marie's sign, no RUQ tenderness, midline surgical scar, no voluntary or involuntary guarding or rigidity, positive bowel sounds Extremities: trace RLE edema, Left AKA Home Medications Medication Instructions Recorded Aspirin 81 mg PO DAILY 01/25/18 Atorvastatin Calcium [Lipitor] 20 mg PO HS 01/25/18 Bethanechol Chloride [Urecholine] 50 mg PO BID 01/25/18 Budesonide/Formeterol Fumarate 1 inh PO DAILY 01/25/18 [SYMBICORT 160/4.5mcg -] Carbidopa/Levodopa 1 each PO BID 01/25/18 [Carbidopa-Levodopa 25-100 Tab] Carvedilol [Coreg -] 25 mg PO BID 01/25/18 Cholecalciferol (Vitamin D3) 1,000 unit PO DAILY 01/25/18 [Vitamin D3 -] Esomeprazole Magnesium [Nexium 40 mg PO DAILY 01/25/18 24Hr] Insulin Glargine,Hum.rec.anlog 0 units SQ HS 01/25/18 [Lantus Solostar PEN -] Isosorbide Mononitrate [Imdur -] 30 mg PO DAILY 01/25/18 Meclizine HCl [Antivert -] 12.5 mg PO QID PRN 01/25/18 Methenamine Hippurate [Hiprex [Nf] 1 gm PO DAILY 01/25/18 -] Ranolazine [Ranexa -] 500 mg PO HS 01/25/18 Ticagrelor [Brilinta -] 90 mg PO BID 01/25/18 Acetaminophen [Tylenol .Regular 650 mg PO Q6H tablet 01/29/18 Strength -] Cyclobenzaprine HCl 5 mg PO BID #10 tablet 01/29/18 Polyethylene Glycol 3350 [Miralax 17 gm PO BID #1 bottle 01/29/18 119 gm Btl -] Losartan Potassium [Cozaar -] 50 mg PO DAILY 02/22/18 Sitagliptin Phos/Metformin HCl 1 each PO BID 02/22/18 [Janumet 50-1,000 mg Tablet] Active Medications Acetaminophen (Tylenol -) 650 mg PO Q6HPO [facility] Last Admin: 02/27/18 06:19 Dose: 650 mg Al Hydroxide/Mg Hydroxide (Mylanta Oral Suspension -) 30 ml PO Q6H PRN PRN Reason: DYSPEPSIA Last Admin: 02/24/18 18:08 Dose: 30 ml Albuterol Sulfate (Ventolin 0.083% Nebulizer Soln -) 1 amp NEB Q4H PRN PRN Reason: SHORT OF BREATH/WHEEZING Last Admin: 02/26/18 23:39 Dose: 1 amp Aspirin (Asa -) 81 mg PO DAILY [facility] Last Admin: 02/26/18 11:26 Dose: 81 mg Budesonide/Formoterol Fumarate (Symbicort 160/4.5mcg -) 2 puff IH BID [facility] Last Admin: 02/26/18 21:23 Dose: 2 puff Carbidopa/Levodopa (Sinemet 25/100 -) 1 each PO BID [facility] Last Admin: 02/26/18 21:20 Dose: 1 each Carvedilol (Coreg -) 25 mg PO BID [facility] Last Admin: 02/26/18 21:20 Dose: 25 mg Cholecalciferol (Vitamin D3 -) 1,000 unit PO DAILY [facility] Last Admin: 02/26/18 11:25 Dose: 1,000 unit Cyclobenzaprine HCl (Flexeril -) 5 mg PO BID [facility] Last Admin: 02/26/18 21:20 Dose: 5 mg Furosemide (Lasix Injection -) 40 mg IVPUSH BID@0600,1400 [facility] Last Admin: 02/27/18 06:19 Dose: 40 mg Insulin Aspart (Novolog Vial Sliding Scale -) 1 vial SQ [facility]; Protocol Last Admin: 02/27/18 06:15 Dose: Not Given Insulin Detemir (Levemir Vial) 15 units SQ [facility] Last Admin: 02/26/18 21:20 Dose: 15 units Isosorbide Mononitrate (Imdur -) 30 mg PO DAILY [facility] Last Admin: 02/26/18 11:25 Dose: 30 mg Meclizine HCl (Antivert -) 12.5 mg PO QID PRN PRN Reason: VERTIGO Pantoprazole Sodium (Protonix -) 40 mg PO DAILY [facility] Last Admin: 02/26/18 11:25 Dose: 40 mg Ranolazine (Ranexa -) 500 mg PO HS [facility] Last Admin: 02/26/18 21:20 Dose: 500 mg Spironolactone (Aldactone -) 25 mg PO DAILY [facility] Last Admin: 02/26/18 11:25 Dose: 25 mg Laboratory Results - last 24 hr 02/25/18 02/26/18 02/26/18 05:30 17:22 20:54 WBC RBC Hgb Hct MCV MCH MCHC RDW Plt Count MPV Sodium Potassium Chloride Carbon Dioxide Anion Gap BUN Creatinine Creat Clearance w eGFR POC Glucometer 109 166 Random Glucose Calcium Total Bilirubin AST ALT Alkaline Phosphatase Total Protein Albumin Hep A IgM Ab Confirm Negative Hepatitis A Ab Total Positive H Hep Bs Antigen Negative Hep Bs Antibody Non reactive Hep B Core Total Ab Negative 02/27/18 02/27/18 02/27/18 05:38 06:25 06:25 WBC 8.3 RBC 3.79 Hgb 9.9 L Hct 31.2 L MCV 82.2 MCH 26.1 MCHC 31.8 L RDW 17.8 H Plt Count 228 D MPV 9.2 Sodium 136 Potassium 4.2 Chloride 101 Carbon Dioxide 24 Anion Gap 11 BUN 45 H Creatinine 1.9 H Creat Clearance w eGFR 25.50 POC Glucometer 72 Random Glucose 98 Calcium 8.2 L Total Bilirubin 0.8 AST 577 H ALT 102 H Alkaline Phosphatase 246 H Total Protein 5.7 L Albumin 2.6 L Hep A IgM Ab Confirm Hepatitis A Ab Total Hep Bs Antigen Hep Bs Antibody Hep B Core Total Ab ASSESSMENT AND PLAN: 77 year-old female with a PMH significant for HTN, CAD, systolic HF, peripheral arterial disease, COPD, pulmonary fibrosis, DM, recurrent UTIs, Parkinson's disease, and dementia; s/p left AKA and partial gastrectomy. Admitted for abdominal pain and dark diarrhea. Found to be in severe systolic heart failure. -Abdominal Pain -Diarrhea, occult GI bleed -Acute systolic heart failure exacerbation (EF 25-35% from 40-45% in 2017) -Abnormal LFTs/cholelithiasis -ROLDAN on CKD suspect from above -Chronic anemia -CAD s/p remote PCI (last PCI to RCA 2013), plavix non responder on Brillinta -PAD s/p Right AKA -COPD -Pulmonary fibrosis -IDDM -Parkinson's disease -Dementia Plan: LFTs worse today, patsy normal. Discussed with Dr. Malin, Will begin transfer process to [facility], monitor closely for now. Volume status improving, Cardiology input noted. CXR tomorrow, if improved, transition to PO lasix. Hold statins for now. s/p ceftriaxone/flagyl on admission. stool c difficile neg. CT A/P neg for infectious/inflammatory process. Emperic ceftriaxone/flagyl for now. Cardiology input noted. Off Brillinta. COntinue ASA/coreg/ranexa/Isosorbide. EF lower than 2017, follow up with cardiology for additional input. Monitor h/h, continue protonix. Renal function improved, continue lasix. ISS, diabetic diet. Continue sinemet/Symbicort/Nebs prn [id number] SCDs dispo pending transfer to [facility] for EUS and further testing. Plan discussed with patient and nursing, all questions answered.
[2018-02-27] MEDS ORDERED: PT OWN MED DRAWER 7, Y5N ONE (10:42)
[2018-02-27] MEDS: CHOLECALCIFEROL (VITAMIN D3) 1,000 UNIT TABLET (FP) PO SCH (11:29)
[2018-02-27] MEDS: CYCLOBENZAPRINE HCL 10 MG TABLET (FP) PO SCH (11:29)
[2018-02-27] MEDS: ISOSORBIDE MONONITRATE 30 MG TAB.SR.24H (FP) PO SCH (11:29)
[2018-02-27] MEDS: CARBIDOPA/LEVODOPA 25/100 TABLET (FP) PO SCH (11:30)
[2018-02-27] MEDS: ASPIRIN 81 MG CHEWABLE TABLETS PO SCH (11:30)
[2018-02-27] MEDS: CARVEDILOL 25 MG TABLET (FP) PO SCH (11:30)
[2018-02-27] MEDS: BUDESONIDE/FORMETEROL FUMARATE 160/4.5 mcg INHALER IH SCH (11:30)
[2018-02-27] MEDS: PANTOPRAZOLE 40 MG TABLET (FP) PO SCH (11:30)
[2018-02-27] MEDS ORDERED: CEFTRIAXONE 1 GM in DEXTROSE 5%-WATER - 50 ML IVPB SCH (11:45)
[2018-02-27] MEDS: SPIRONOLACTONE 25 MG TABLET (FP) PO SCH (13:31)
[2018-02-27 15:00] VITALS: BP 117/53; PULSE 60; TEMP 97.4
--- NOTE | 2018-02-27 15:16 | DS ---
Physical Exam: SUBJECTIVE: Patient seen and examined at bed side this morning. States her anxiety is better today and abdominal pain has improved. OBJECTIVE: Vital Signs Period Temp Pulse Resp BP Sys/Ott Pulse Ox Last 24 Hr 97.3 F-97.7 F 59-78 18-22 105-118/53-63 96-96 PHYSICAL EXAM GENERAL: Khmer speaking elderly female, patient is awake, alert, and fully oriented, in no acute distress. HEAD: Normal with no signs of trauma. EYES: EOM intact, no pallor or icterus. ENT: Ears normal, moist mucous membranes. NECK: Supple. LUNGS: Breath sounds equal, clear to auscultation bilaterally, no wheezes, no crackles, no accessory muscle use. HEART: Regular rate and rhythm, S1, S2 without murmur, rub or gallop. ABDOMEN: Surgical scar thompson +, well healed, Soft, tenderness in the epigastric area, normoactive bowel sounds, no organomegaly. EXTREMITIES: 2+ pulses, warm, well-perfused, no edema. Left BKA-scar well healed. NEUROLOGICAL:No facial droop. Normal speech, gait not observed. PSYCH: Normal mood, normal affect. SKIN: Warm, dry, normal turgor, no rashes or lesions noted LABS Laboratory Results - last 24 hr 02/25/18 02/26/18 02/26/18 05:30 17:22 20:54 WBC RBC Hgb Hct MCV MCH MCHC RDW Plt Count MPV Sodium Potassium Chloride Carbon Dioxide Anion Gap BUN Creatinine Creat Clearance w eGFR POC Glucometer 109 166 Random Glucose Calcium Total Bilirubin AST ALT Alkaline Phosphatase Total Protein Albumin Hep A IgM Ab Confirm Negative Hepatitis A Ab Total Positive H Hep Bs Antigen Negative Hep Bs Antibody Non reactive Hep B Core Total Ab Negative 02/27/18 02/27/18 02/27/18 05:38 06:25 06:25 WBC 8.3 RBC 3.79 Hgb 9.9 L Hct 31.2 L MCV 82.2 MCH 26.1 MCHC 31.8 L RDW 17.8 H Plt Count 228 D MPV 9.2 Sodium 136 Potassium 4.2 Chloride 101 Carbon Dioxide 24 Anion Gap 11 BUN 45 H Creatinine 1.9 H Creat Clearance w eGFR 25.50 POC Glucometer 72 Random Glucose 98 Calcium 8.2 L Total Bilirubin 0.8 AST 577 H ALT 102 H Alkaline Phosphatase 246 H Total Protein 5.7 L Albumin 2.6 L Hep A IgM Ab Confirm Hepatitis A Ab Total Hep Bs Antigen Hep Bs Antibody Hep B Core Total Ab 02/27/18 12:20 WBC RBC Hgb Hct MCV MCH MCHC RDW Plt Count MPV Sodium Potassium Chloride Carbon Dioxide Anion Gap BUN Creatinine Creat Clearance w eGFR POC Glucometer 174 Random Glucose Calcium Total Bilirubin AST ALT Alkaline Phosphatase Total Protein Albumin Hep A IgM Ab Confirm Hepatitis A Ab Total Hep Bs Antigen Hep Bs Antibody Hep B Core Total Ab 02/25/18 MRCP : Cholelithiasis. Moderate bilateral pleural effusions with overlying atelectasis vs infiltrates. Subcutaneous edema, trace fluid adjacent to the inferior edge of the liver and in the pericholecystic space coupled with bilateral pleural effusions. An underlying element of 3rd spacing is suspected. Pericholecystic fluid could be secondary to 3rd spacing however underlying cholecystitis cannot be excluded. Markedly limited MRCP images due to motion. Suggestion of tiny nonobstructing filling defect posteriorly in the CBD. It is not clear if this represents a tiny stone or artifact. No biliary ductal dilatation seen. Atrophic kidneys likely chronic medical renal disease. Small right renal cysts. HOSPITAL COURSE: Date of Admission:02/22/18 Date of Discharge: 02/27/18 Patient is a 77 year old female with a PMH significant for HTN, CAD, systolic HF , peripheral arterial disease, COPD, pulmonary fibrosis, DM, recurrent UTIs, Parkinson's disease, and dementia; s/p left AKA and partial gastrectomy admitted for abdominal pain and dark stool. Labs were significant for elevated liver enzymes. MRCP was done which showed Cholelithiasis but no biliary ductal dilatation. GI was consulted who recommended EUS. Brillanta stopped on 02/25/18. Statins discontinued due to elevated liver enzymes. GI recommended to transfer to a tertiary center for EUS. Called [facility] for transfer. Dr. Joshua Major accepted the patient. C. diff ruled. Acute on chronic CHF exacerbation improving. BNP 41815 (improved from 02/22/18- it was 84869 in ) echo from 2017 shows LVEF 40-45, current echo reports LVEF 25- 35. No signs of ACS here, troponins not significantly elevated. Diuresed with IV Lasix 40mg BID DM: Sitagliptin/metformin on hold given CKD. ISS, finger sticks, watch for hypoglycemic episodes Parkinsons Continued sinemet HTN controlled: Continued coreg 25 daily, isosorbide, spironolactone 25 mg. Losartan (home meds stopped). Transferring patient to [facility] for possible EUS. Plan of care explained to the patient and her daughter. They verbalized understanding. Minutes to complete discharge: 45 Discharge Summary Reason For Visit: CONGESTIVE HEART FAILURE, ELEVATED TROPONIN LEVEL Current Active Problems Abdominal pain (Acute) Anemia (Acute) Diarrhea (Acute) Elevated troponin (Acute) Epigastric pain (Acute) CHF (congestive heart failure) (Chronic) COPD (chronic obstructive pulmonary disease) (Chronic) Diabetes (Chronic) HTN (hypertension) (Chronic) Condition: Stable - Instructions Diet, Activity, Other Instructions: We are transferring you to [facility] for EUS. Referrals: Fili Yadav MD [Staff Physician] - Tonio Meyer MD [Primary Care Provider] - Johnny Davis MD [Staff Physician] - Disposition: TRANSFER ACUTE CARE/OTHER HOSP - Home Medications Comprehensive Discharge Medication List: Ambulatory Orders Aspirin 81 mg PO DAILY 01/25/18 Atorvastatin Calcium [Lipitor] 20 mg PO HS 01/25/18 Bethanechol Chloride [Urecholine] 50 mg PO BID 01/25/18 Budesonide/Formeterol Fumarate [SYMBICORT 160/4.5mcg -] 1 inh PO DAILY 01/25/18 Carbidopa/Levodopa [Carbidopa-Levodopa 25-100 Tab] 1 each PO BID 01/25/18 Carvedilol [Coreg -] 25 mg PO BID 01/25/18 Cholecalciferol (Vitamin D3) [Vitamin D3 -] 1,000 unit PO DAILY 01/25/18 Isosorbide Mononitrate [Imdur -] 30 mg PO DAILY 01/25/18 Meclizine HCl [Antivert -] 12.5 mg PO QID PRN 01/25/18 Ranolazine [Ranexa -] 500 mg PO HS 01/25/18 Acetaminophen [Tylenol .Regular Strength -] 650 mg PO Q6H tablet 01/29/18 Sitagliptin Phos/Metformin HCl [Janumet 50-1,000 mg Tablet] 1 each PO BID Albuterol 0.083% Nebulizer Mayra [Ventolin 0.083% Nebulizer Soln -] 1 amp NEB Q4H PRN amp 02/27/18 Ceftriaxone [Rocephin -] 1 gm IVPB DAILY vial 02/27/18 Furosemide Injection [Lasix Injection -] 40 mg IVPUSH BID@0600,1400 vial Insulin (Levemir) [Levemir Vial] 15 units SQ HS units 02/27/18 Insulin Sliding Scale [Novolog Vial Sliding Scale -] 1 vial SQ ACHS units 02/27 Mag Hydrox/Al Hydrox/Simeth [Mylanta Oral Suspension -] 30 ml PO Q6H PRN cup Pantoprazole Sodium [Protonix -] 40 mg PO DAILY tablet.ec 02/27/18 Spironolactone [Aldactone -] 25 mg PO DAILY tablet 02/27/18 Spironolactone [Aldactone -] 25 mg PO DAILY #30 tablet 02/27/18 metroNIDAZOLE PREMIXED IVPB [Flagyl 250Mg Premixed Ivpb -] 500 mg IVPB TID #1 bag 02/27/18 This patient is new to me today: No Emergency Visit: Yes ED Registration Date: 02/22/18 Care time: The patient presented to the Emergency Department on the above date and was hospitalized for further evaluation of their emergent condition. Critical Care patient: No - Discharge Referral Referred to [facility] Med [facility] No
[2018-02-27] MEDS ORDERED: DEXTROSE 5%-WATER - 50 ML IVPB ONE (15:25)
[2018-02-27] MEDS ORDERED: cefTRIAXone SODIUM 1 GM VIAL ONE (15:25)
== END 2018-02-27 17:32 | disposition short-term general hospital (02) | DRG 292 ==
LOC: JER 15:14 → JERBED 20:19 → J4W 02-23 12:40
PROVIDERS: ADMIT Internal Medicine; ATTEND Hospitalist
DX: I11.0 Hypertensive heart disease with heart failure (principal); N17.9 Acute kidney failure, unspecified; I50.23 Acute on chronic systolic (congestive) heart failure; R10.9 Unspecified abdominal pain; I25.10 Atherosclerotic heart disease of native coronary artery without angina pectoris; J84.10 Pulmonary fibrosis, unspecified; D64.9 Anemia, unspecified; E11.65 Type 2 diabetes mellitus with hyperglycemia; Z90.3 Acquired absence of stomach [part of]; G20 Parkinson's disease; F03.90 Unspecified dementia, unspecified severity, without behavioral disturbance, psychotic disturbance, mood disturbance, and anxiety; J44.9 Chronic obstructive pulmonary disease, unspecified; Z79.4 Long term (current) use of insulin; K21.9 Gastro-esophageal reflux disease without esophagitis; Z98.61 Coronary angioplasty status; R19.7 Diarrhea, unspecified; F41.9 Anxiety disorder, unspecified; E87.6 Hypokalemia; R74.0 Nonspecific elevation of levels of transaminase and lactic acid dehydrogenase [LDH]; K80.20 Calculus of gallbladder without cholecystitis without obstruction
CPT/HCPCS: 36415; 71045-TC-FY; 71046-TC-FY; 74176-TC; 74181-TC; 76705-TC; 80048; 80053; 80076; 81003; 81015; 82272; 82550; 82570; 82962; 83605; 83690; 83735; 83880; 84100; 84300; 84484; 85025; 85027; 85610; 85651; 85730; 86140; 86704; 86706; 86708; 86803; 86850; 86900; 86901; 87040; 87086; 87324; 87340; 87449; 93005; 93010; 93306-TC; 94640; 97116-GP; 97162-GP; 99282-25; J1644; J7030

== ENCOUNTER 2018-03-19 15:00 | Emergency (ER) | payer OTHER ==
[2018-03-19 15:44] VITALS: TEMP 97.6; BMI 20.9
--- NOTE | 2018-03-19 16:04 | PDOC ---
History of Present Illness - General Chief Complaint: Pain, Acute Stated Complaint: ABD PAIN Time Seen by Provider: 03/19/18 15:39 - History of Present Illness Initial Comments: The pt is a 77F w/ a history of s/p L AKA who presents for evaluation of RUQ /epigastric abdominal pain w/ associated nausea and jaundice. Pain is worse post -prandially and not alleviated by anything she can identify. Denies fevers/chills, chest pain, SOB, diarrhea, dysuria, hematuria, changes in sensation 03/19/18 23:09 Past History - Past Medical History Allergies/Adverse Reactions: Allergies Allergy/AdvReac Type Severity Reaction Status Date / Time clarithromycin [From Biaxin] Allergy Verified 03/19/18 15:31 levofloxacin [From Levaquin] Allergy Verified 03/19/18 15:31 sulfamethoxazole Allergy Verified 03/19/18 15:31 [From Bactrim] trimethoprim [From Bactrim] Allergy Verified 03/19/18 15:31 Home Medications: Ambulatory Orders Aspirin 81 mg PO DAILY 01/25/18 Bethanechol Chloride [Urecholine] 50 mg PO BID 01/25/18 Budesonide/Formeterol Fumarate [SYMBICORT 160/4.5mcg -] 1 inh PO DAILY 01/25/18 Carbidopa/Levodopa [Carbidopa-Levodopa 25-100 Tab] 1 each PO BID 01/25/18 Carvedilol [Coreg -] 25 mg PO BID 01/25/18 Cholecalciferol (Vitamin D3) [Vitamin D3 -] 1,000 unit PO DAILY 01/25/18 Isosorbide Mononitrate [Imdur -] 30 mg PO DAILY 01/25/18 Meclizine HCl [Antivert -] 12.5 mg PO QID PRN 01/25/18 Ranolazine [Ranexa -] 500 mg PO HS 01/25/18 Acetaminophen [Tylenol .Regular Strength -] 650 mg PO Q6H tablet 01/29/18 Albuterol 0.083% Nebulizer Mayra [Ventolin 0.083% Nebulizer Soln -] 1 amp NEB Q4H PRN amp 02/27/18 Furosemide Injection [Lasix Injection -] 40 mg IVPUSH BID@0600,1400 vial Insulin (Levemir) [Levemir Vial] 15 units SQ HS units 02/27/18 Insulin Sliding Scale [Novolog Vial Sliding Scale -] 1 vial SQ ACHS units 02/27 Mag Hydrox/Al Hydrox/Simeth [Mylanta Oral Suspension -] 30 ml PO Q6H PRN cup Pantoprazole Sodium [Protonix -] 40 mg PO DAILY tablet.ec 02/27/18 Spironolactone [Aldactone -] 25 mg PO DAILY tablet 02/27/18 Cardiac Disorders: Yes COPD: Yes CHF: Yes Diabetes: Yes GI Disorders: Yes (gerd) Disorders: Yes (uti's) HTN: Yes Hypercholesterolemia: Yes - Surgical History Abdominal Surgery: Yes (gastrectomy) - Suicide/Smoking/Psychosocial Hx Smoking Status: No Smoking History: Never smoked Have you smoked in the past 12 months: No Number of Cigarettes Smoked Daily: 0 Hx Alcohol Use: No Drug/Substance Use Hx: No Substance Use Type: None Hx Substance Use Treatment: No Review of Systems - Review of Systems Able to Perform ROS?: Yes Comments:: GENERAL/CONSTITUTIONAL: No fever or chills. No weakness._ HEAD, EYES, EARS, NOSE AND THROAT: No change in vision. No ear pain or discharge. No sore throat._ CARDIOVASCULAR: No chest pain or shortness of breath_ RESPIRATORY: Denies cough, hemoptysis_ GASTROINTESTINAL: No nausea, vomiting, diarrhea or constipation._ GENITOURINARY: No dysuria, frequency, or change in urination._ MUSCULOSKELETAL: No joint or muscle swelling or pain. No neck or back pain._ SKIN: No rash_ NEUROLOGIC: No headache, vertigo, loss of consciousness, or change in strength/ sensation._ ENDOCRINE: No increased thirst. No abnormal weight change_ HEMATOLOGIC/LYMPHATIC: No anemia, easy bleeding, or history of blood clots._ ALLERGIC/IMMUNOLOGIC: No hives or skin allergy._ 03/19/18 23:12 *Physical Exam - Vital Signs Last Vital Signs Temp Pulse Resp BP Pulse Ox 97.6 F 87 18 126/71 98 03/19/18 15:02 03/19/18 15:02 03/19/18 15:02 03/19/18 15:02 03/19/18 15:02 - Physical Exam Comments: GENERAL: Awake, alert, and fully oriented, in no acute distress_ HEAD: No signs of trauma, normocephalic, atraumatic _ EYES: PERRLA, EOMI, sclera anicteric, conjunctiva clear_ ENT: Hearing grossly normal, nares patent, oropharynx clear without exudates. No uvular deviation. Moist mucosa_ NECK: Normal ROM, supple, no lymphadenopathy, JVD, or masses_ LUNGS: No distress, speaks full sentences, clear to auscultation bilaterally _ HEART: Regular rate and rhythm, normal S1 and S2, no murmurs appreciated, peripheral pulses normal and equal bilaterally._ ABDOMEN: Soft, nontender, normoactive bowel sounds. No guarding, no rebound. No masses_ EXTREMITIES : Normal inspection, Normal range of motion, no edema. No clubbing or cyanosis_ NEUROLOGICAL: Cranial nerves II through XII grossly intact. Normal speech, normal gait, no focal sensorimotor deficits _ SKIN: Warm, Dry, normal turgor, no rashes or lesions noted_ 03/19/18 23:13 Moderate Sedation - Procedure Monitoring Vital Signs: Procedure Monitoring Vital Signs Temperature 97.6 F 03/19/18 15:02 Pulse Rate 87 03/19/18 15:02 Respiratory Rate 18 03/19/18 15:02 Blood Pressure 126/71 03/19/18 15:02 O2 Sat by Pulse Oximetry (%) 98 03/19/18 15:02 ED Treatment Course - LABORATORY CBC & Chemistry Diagram: 03/19/18 16:30 03/19/18 16:30 Medical Decision Making - Medical Decision Making ED Course CMP, CBC Transaminitis Elevated Tbili Patient needs surgical evaluation for cholecystectomy. Patient's previous care/ workup was performed at [facility] and patient requested transfer to continue care there. After case discussion with surgical staff at [facility], it was agreed that such transfer would be an EMTALA violation as surgical services are offered here as well. I discussed this with the patient who then elected to leave [facility]. The patient understands the risks and complications that may result from the refusal of medical care and admission which includes and permanent disability. The patient has the mental capacity of understanding the risks of refusing care and is capable of making an informed decision. The patient was instructed to return to the emergency department should she change her mind regarding medical care or should her condition worsen. The patient signed the Against Medical Advice form w/ the use of a gastroenterology physician. Dispo: [facility] 03/19/18 23:13 *DC/Admit/Observation/Transfer Diagnosis at time of Disposition: Jaundice, Transaminitis Abdominal pain Qualifiers: Abdominal location: unspecified location Qualified Code(s): R10.9 - Unspecified abdominal pain - Discharge Dispostion Disposition: AGAINST MEDICAL ADVICE Condition at time of disposition: Fair - Referrals Referrals: Tonio Meyer MD [Primary Care Provider] - - Patient Instructions Printed Discharge Instructions: DI for Cholecystitis Additional Instructions: You were seen in the Emergency Department today for evaluation of abdominal pain with jaundice. You were evaluated and we recommend surgical evaluation for gallbladder removal. Please follow up with your surgeon or return to the Emergency Department if your symptoms worsen. Also review the handout provided at discharge. - Post Discharge Activity
[2018-03-19] MEDS ORDERED: morphine CARPU-JECT 2 MG/1 ML DISP.SYRIN IVPUSH ONE (16:29)
[2018-03-19 16:41] LABS: BASO % 0.6 % (0-2.0); EOS % 2.2 % (0-4.5); HEMATOCRIT 36.2 % (32.4-45.2); HEMOGLOBIN 11.8 GM/dL (10.7-15.3); LYMPH % 19.3 % (8-40); MCHC 32.7 g/dl (32.0-36.0); MEAN CELL VOLUME 79.6 fl (80-96); MEAN PLT VOLUME 8.5 fl (7.5-11.1); MONO % 9.3 % (3.8-10.2); NEUT % 68.6 % (42.8-82.8); PLATELET COUNT 354 K/MM3 (134-434); RBC 4.55 M/mm3 (3.60-5.2); RDW 19.4 % (11.6-15.6); WHITE BLOOD COUNT 6.6 K/mm3 (4.0-10.0)
[2018-03-19 17:34] LABS: ALK PHOS 196 U/L (45-117); ANION GAP 11 MMOL/L (8-16); BILIRUBIN,TOTAL 1.7 mg/dL (0.2-1); BLOOD UREA NITROGEN 40 mg/dL (7-18); CALCIUM 8.5 mg/dL (8.5-10.1); CHLORIDE 102 mmol/L (98-107); CO2 23 mmol/L (21-32); CREATININE 1.4 mg/dL (0.55-1.3); GLUCOSE,RANDOM 218 mg/dL (74-106); POTASSIUM 5.3 mmol/L (3.5-5.1); SGOT/AST 83 U/L (15-37); SGPT/ALT 200 U/L (13-61); SODIUM 136 mmol/L (136-145)
--- NOTE | 2018-03-19 18:42 | PDOC ---
Attending Attestation - Resident Resident Name: Heath Basilio - ED Attending Attestation I have performed the following: I have examined & evaluated the patient, The case was reviewed & discussed with the resident, I agree w/resident's findings & plan, Exceptions are as noted <Nikki Kam - Last Filed: 03/19/18 18:42> - HPI HPI: 03/19/18 19:00 The patient is a 77 year old female, with a significant past medical history of CHF, HTN, HLD, DM, CAD, COPD, GERD, pulmonary fibrosis, frequent UTIs, PVD, dementia, Right eye blindness, remote gastric cancer (s/p partial gastrectomy), who presents to the emergency department with, abdominal pain. Patient was recently admitted and transferred to [facility] for an elective cholecystectomy at which time she became hypotensive during EGD thus postponing surgery and discharged. Patient was advised by her surgeon Dr. Darrius Stokes to report to [facility] ED if her abdominal pain came back. Patient notes her symptoms returned and she would like she surgery. Allergies: clarithromycin, levofloxacin. Sulfamethoxazole, trimethoprim Past surgical history: L. BKA and partial gastrectomy Social history: Nonsmoker. Denies EtOH use and recreational drug use. Primary Care Physician: Dr. Ailyn Meyer <John Marcail - Last Filed: 03/19/18 19:00> Attestations - Attestations 03/19/18 19:00 Documentation prepared by John Marcial, acting as medical assistant cardiology for Nikki Kam MD. <John Marcial - Last Filed: 03/19/18 19:00>
[2018-03-19] MEDS ORDERED: MORPHINE SULFATE 2 MG/ML VIAL ONE (19:15)
[2018-03-19 20:18] VITALS: BP 124/68; PULSE 84
== END 2018-03-19 20:16 | disposition left against medical advice (07) ==
LOC: JER 15:00
PROC: 3E033NZ Introduction of Analgesics, Hypnotics, Sedatives into Peripheral Vein, Percutaneous Approach (ICD-10-PCS; principal; 2018-03-19)
DX: R17 Unspecified jaundice (principal); R74.0 Nonspecific elevation of levels of transaminase and lactic acid dehydrogenase [LDH]; I25.10 Atherosclerotic heart disease of native coronary artery without angina pectoris; I11.0 Hypertensive heart disease with heart failure; I50.9 Heart failure, unspecified; E11.9 Type 2 diabetes mellitus without complications; Z79.4 Long term (current) use of insulin; J44.9 Chronic obstructive pulmonary disease, unspecified; I73.9 Peripheral vascular disease, unspecified; F03.90 Unspecified dementia, unspecified severity, without behavioral disturbance, psychotic disturbance, mood disturbance, and anxiety; H54.40 Blindness, one eye, unspecified eye; Z85.028 Personal history of other malignant neoplasm of stomach; Z87.440 Personal history of urinary (tract) infections; Z90.3 Acquired absence of stomach [part of]; Z89.512 Acquired absence of left leg below knee; Z88.8 Allergy status to other drugs, medicaments and biological substances
CPT/HCPCS: 36415; 80053; 85025; 99282-25